=== PATIENT | male | born 1955 | race Caucasian/White ===

== ENCOUNTER 2020-02-05 15:18 | Inpatient (IN) | payer OTHER, SELFPAY ==
[2020-02-05] VITALS (11 sets, daily range): BP systolic 133–169; BP diastolic 85–96; PULSE 63–80; RESP 14–22; TEMP 36.5–36.7; O2SAT 94–97; BMI 30.1
--- NOTE | 2020-02-05 15:23 | XR_ITS ---
WS: [id number] XR chest 1V portable 92030 REASON FOR EXAM: cp FINDINGS: Mild tortuosity of the thoracic aorta without significant dilatation. Normal heart size. No active pulmonary parenchymal or pleural disease is noted. Mild degenerative changes in both shoulders and the thoracic spine. XR/XR chest 1V portable 10018 IMPRESSION: No acute chest abnormality.
--- NOTE | 2020-02-05 15:24 | ECG_ITS ---
[facility] Test Date: 2020-02-05 Pat Name: Myron Clayton Department: Room: Gender: Male Rn Documentation: : 1955 Requested By: Rubens Diaz Order Number: [id number] Brad MD: Clovis Fatima M.D. Measurements Intervals [place] Rate: 68 P: 47 ME: 220 QRS: 8 QRSD: 114 T: 20 QT: 394 QTc: 421 Interpretive Statements SINUS RHYTHM WITH FIRST DEGREE AV BLOCK MODERATE INTRAVENTRICULAR CONDUCTION DELAY [110+ ms QRS DURATION] INTERPRETATION BASED ON A DEFAULT AGE OF 40 YEARS No previous ECG available for comparison Electronically Signed On 02-05-2020 19:42:26 SENIOR PRINCIPAL PROCESS ENGINEER by Clovis Fatima M.D. [id number] f
[2020-02-05] MEDS: aspirin 81 mg Chew Tablet 324 MG PO (16:50)
--- NOTE | 2020-02-05 16:56 | ED_ITS ---
HPI - Chest Pain General: Chief Complaint: Chest Pain Stated Complaint: CP Time Seen by Provider: 02/05/20 16:06 Source: patient History of Present Illness: HPI narrative: Patient is a well-appearing 64-year-old male seen for chest pain. He describes the pain as pressure, 7 of 10, onset while walking on treadmill. Pain is recurred over the last several days with exertion. He describes it as pressure, substernal, with no radiation and no concomitant shortness of breath, lightheadedness, diaphoresis, nausea. He has no personal cardiac history, and denies history of diabetes, hypertension, hyperlipidemia, does not smoke or drink. Father of heart attack and had his first heart attack at age 48. Mother also had cardiac problems. At the time of my exam, he complains of 1 of 10 chest pressure, substernal, with no radiation and no associated symptoms. He denies recent sickness, fever, cough, and has no other acute complaints. He has not taken anything for the pain. Review of Systems General: Reports: 10 or more systems reviewed and unremarkable except in HPI and below Card: Reports: chest pain [facility] ED PFSH: Social History (Updated 02/05/20 @ 16:00 by Aman Phipps RN) Smoking and tobacco status: never smoked Alcohol intake: never Substance/Drug Use: former Physical Exam Const: COMMON NORMALS: no acute distress, patient oriented x3 and healthy appearing Neck/C-Spine: COMMON NORMALS: no JVD Resp: COMMON NORMALS: normal respiratory effort, No retractions, No use of accessory muscles, clear to auscultation bilaterally and percussion normal AUSCULTATION: clear to auscultation bilaterally PERCUSSION: percussion normal Cardio: COMMON NORMALS: no JVD, regular rate, regular rhythm, S1 normal heart sound present and S2 normal heart sound present JUGULAR VENOUS DISTENTION: no JVD RATE: regular rate RHYTHM: regular rhythm HEART SOUNDS: S1 normal heart sound present and S2 normal heart sound present OTHER: Chest pain is not reproducible with palpation or deep inspiration Extremity: COMMON NORMALS: normal to inspection and no pedal edema Neuro: COMMON NORMALS: patient oriented x3 Course Vital Signs: Vital signs: Vital Signs Temperature 97.7 F 02/05/20 15:56 Pulse Rate 66 02/05/20 17:59 Respiratory Rate 16 02/05/20 17:59 Blood Pressure 151/92 02/05/20 17:59 Pulse Oximetry 97 02/05/20 17:14 MDM - Chest Pain MDM Narrative: Medical decision making narrative: Patient remained hemodynamically stable throughout ED course. He describes chest pressure which is worse with exertion and better with rest. With Nitropaste and is completely gone. Initial troponin was 14 and 2-hour repeat is 17.98. With strong family history, I am concerned about his heart score. He will be admitted to the hospital service observation status for stress testing. Patient agrees to plan to be taken upstairs in stable condition. Lab Data: Labs: Lab Results 02/05/20 02/05/20 02/05/20 Range/Units 16:50 16:50 16:50 WBC 9.0 (4.0-10.0) 10^3/ uL RBC 4.90 (4.1-5.3) 10^6/u L Hgb 15.1 (11.7-16.6) g/dL Hct 44.5 (42.0-52.0) % MCV 90.8 (80-94) fL MCH 30.8 (28.0-34.0) pg MCHC 33.9 (30.0-36.0) g/dL RDW 13.2 (12.1-15.1) % Plt Count 222 (130-400) 10^3/c mm MPV 8.7 (7.4-10.4) fL Neut % (Auto) 54.1 % Lymph % (Auto) 35.4 % [place] % (Auto) 7.0 % Eos % (Auto) 2.3 % Baso % (Auto) 0.6 % Neut # (Auto) 4.89 (1.8-7.7) 10^3/u L Lymph # (Auto) 3.2 (0.8-4.8) 10^3/u L [place] # (Auto) 0.6 (0.2-0.9) 10^3/u L Eos # (Auto) 0.2 (0.0-0.8) 10^3/u L Baso # (Auto) 0.1 (0.0-0.1) 10^3/u L Nucleated RBC % (a uto) 0 % Nucleated RBCs # 0.0 /100WBC Sodium 143 (136-145) mmol/L Potassium 4.3 (3.5-5.1) mmol/L Chloride 108 H (98-107) mmol/L Carbon Dioxide 27 (22-29) mmol/L Anion Gap 12.3 (5-19) BUN 22 (8-23) mg/dL Creatinine 0.7 (0.7-1.2) mg/dL GFR Calculation 113.9 (90-130) mL/min Glucose 109 (65-115) mg/dL Calculated Osmolal ity 300 H (285-295) mOsm/k g Calcium 9.3 (8.5-10.5) mg/dL Total Bilirubin 0.3 (0.15-1.2) mg/dL AST 17 (0-40) U/L ALT 30 (0-41) U/L Alkaline Phosphata se 63 (40-130) IU/L Troponin T Baselin e 14 (0-15) ng/L Troponin T 120 Min [place] (0-15) ng/L Delta Troponin T (0-10) ABS# Total Protein 6.4 L (6.6-8.7) g/dL Albumin 4.2 (3.5-5.2) g/dL Globulin 2.2 (1.3-4.6) g/dL 02/05/20 Range/Units 18:50 WBC (4.0-10.0) 10^3/ uL RBC (4.1-5.3) 10^6/u L Hgb (11.7-16.6) g/dL Hct (42.0-52.0) % MCV (80-94) fL MCH (28.0-34.0) pg MCHC (30.0-36.0) g/dL RDW (12.1-15.1) % Plt Count (130-400) 10^3/c mm MPV (7.4-10.4) fL Neut % (Auto) % Lymph % (Auto) % [place] % (Auto) % Eos % (Auto) % Baso % (Auto) % Neut # (Auto) (1.8-7.7) 10^3/u L Lymph # (Auto) (0.8-4.8) 10^3/u L [place] # (Auto) (0.2-0.9) 10^3/u L Eos # (Auto) (0.0-0.8) 10^3/u L Baso # (Auto) (0.0-0.1) 10^3/u L Nucleated RBC % (a uto) % Nucleated RBCs # /100WBC Sodium (136-145) mmol/L Potassium (3.5-5.1) mmol/L Chloride (98-107) mmol/L Carbon Dioxide (22-29) mmol/L Anion Gap (5-19) BUN (8-23) mg/dL Creatinine (0.7-1.2) mg/dL GFR Calculation (90-130) mL/min Glucose (65-115) mg/dL Calculated Osmolal ity (285-295) mOsm/k g Calcium (8.5-10.5) mg/dL Total Bilirubin (0.15-1.2) mg/dL AST (0-40) U/L ALT (0-41) U/L Alkaline Phosphata se (40-130) IU/L Troponin T Baselin e (0-15) ng/L Troponin T 120 Min [place] 17.98 H (0-15) ng/L Delta Troponin T 3.98 (0-10) ABS# Total Protein (6.6-8.7) g/dL Albumin (3.5-5.2) g/dL Globulin (1.3-4.6) g/dL EKG Data^: EKG 1: Attestation: I personally reviewed and interpreted this EKG as follows: EKG interpretation date: 02/05/20 EKG interpretation time: 16:04 Interpretation: Sinus rhythm with first-degree block, ND interval 220 ms, no ST elevation or depression, QTC = 412 Discharge Plan Discharge Prescriptions: No Action No Known Home Medications RF: 0 Coding Level of Care Code ED Raised Printer for g Fwd Exam Detailed
[2020-02-05 17:00] LABS: Basophils # 0.1 10^3/uL (0.0-0.1); Basophils % 0.6 %; Eosinophils # 0.2 10^3/uL (0.0-0.8); Eosinophils % 2.3 %; Hematocrit 44.5 % (42.0-52.0); Hemoglobin 15.1 g/dL (11.7-16.6); Lymphocytes # 3.2 10^3/uL (0.8-4.8); Lymphocytes % 35.4 %; Mean Corpuscular HGB Conc 33.9 g/dL (30.0-36.0); Mean Corpuscular Hemoglobin 30.8 pg (28.0-34.0); Mean Corpuscular Volume 90.8 fL (80-94); Mean Platelet Volume 8.7 fL (7.4-10.4); Monocytes # 0.6 10^3/uL (0.2-0.9); Neutrophils # 4.89 10^3/uL (1.8-7.7); Neutrophils % 54.1 %; Nucleated Red Blood Cells % 0 %; Platelet Count 222 10^3/cmm (130-400); Red Cell Distribution Width 13.2 % (12.1-15.1)
--- NOTE | 2020-02-05 17:24 | ECG_ITS ---
[facility] Test Date: 2020-02-05 Pat Name: Myron Clayton Department: Room: 250 Gender: Male Admissions Dean: : 1955 Requested By: Rubens Diaz Order Number: [id number] Brad MD: Kari Rivera M.D. Measurements Intervals [place] Rate: 60 P: [place]: QRS: 8 QRSD: 117 T: 11 QT: 427 QTc: 429 Interpretive Statements SINUS RHYTHM WITH FIRST DEGREE AV BLOCK MODERATE INTRAVENTRICULAR CONDUCTION DELAY [110+ ms QRS DURATION] ABNORMAL RHYTHM ECG Compared to ECG 02/05/2020 16:03:01 No significant changes Electronically Signed On 02-06-2020 21:27:58 SALES REPRESENTATIVE RAW FIBERS by Kari Rivera M.D. [id number] f
[2020-02-05 17:31] LABS: Alanine Aminotransferase 30 U/L (0-41); Albumin Level 4.2 g/dL (3.5-5.2); Alkaline Phosphatase 63 IU/L (40-130); Anion Gap 12.3 (5-19); Aspartate Amino Transferase 17 U/L (0-40); Blood Urea Nitrogen 22 mg/dL (8-23); Calcium 9.3 mg/dL (8.5-10.5); Carbon Dioxide 27 mmol/L (22-29); Chloride 108 mmol/L (98-107); Globulin 2.2 g/dL (1.3-4.6); Glomerular Filtration Rate 113.9 mL/min (90-130); Glucose 109 mg/dL (65-115); Osmolality Calculated 300 mOsm/kg (285-295); Potassium 4.3 mmol/L (3.5-5.1); Sodium 143 mmol/L (136-145); Total Bilirubin 0.3 mg/dL (0.15-1.2); Total Protein 6.4 g/dL (6.6-8.7); Troponin(5th) Baseline 14 ng/L (0-15)
[2020-02-05 19:45] LABS: Troponin 5 2HR 17.98 ng/L (0-15); Troponin 5 2HR Delta 3.98 ABS# (0-10)
--- NOTE | 2020-02-05 20:24 | PM.HP ---
Providers/Chief Complaint Chief Complaint: CP History of Present Illness Myron Clayton is a 64 year old male who is a patient at [facility] without significant past medical history presented today with chief complaint of chest discomfort. Patient is stating that for last 3 days he has been experiencing chest heaviness. First time he noticed chest heaviness while he was using treadmill with inclination 3.5, 20 minutes after work-up, he describes his chest discomfort as heaviness nonradiating, improved with decrease in physical activity and rest. He is denying orthopnea, PND, shortness of breath. He is fairly active for his age. Today when he went outside to [employer], he start experiencing chest heaviness again which she is describing as pressure-like sensation not associated nausea, vomiting, diaphoresis. Chest pain would last only for 2 to 5 minutes and subside on rest. Patient is endorsing that his father had first MA in his 40s, he in his 60s due to complications of MA. Because of these concerns he decided to come to the hospital for further evaluation Diagnosis in the ER revealed normal hemodynamics, hypertension, afebrile, normal CBC and BMP, nonsignificant delta troponin, EKG showing sinus rhythm, chest x-ray unremarkable, patient is chest pain-free. D-dimer negative Review of Systems Const: Denies: fever(s), chills, body aches or fatigue Eyes: Denies: change in vision ENMT: Denies: throat pain Card: Reports: chest pain; Denies: palpitations, irregular heart rhythm, edema, swelling of feet/ankles, pre-syncope, dyspnea on exertion or orthopnea Resp: Denies: dyspnea GI: Denies: abdominal pain : Denies: flank pain Musc: Denies: neck pain Skin/Breast: Denies: rash Neuro: Denies: headache(s) Psych: Denies: anxiety Endo: Denies: polyuria Chad/Lymph: Denies: easy bruising All/Imm: Denies: urticaria Medications/Allergies Home Medications Medication Instructions Recorded Confirmed Last Taken Type No Known Home Medications 02/05/20 02/05/20 Unknown History Allergies Allergy/AdvReac Type Severity Reaction Status Date / Time No Known Allergies Allergy Verified 02/05/20 16:00 PFSH Acute PFSH: Medical History (Updated 02/05/20 @ 21:55 by Jaiden Ojeda MD) No significant past medical history Surgical History (Updated 02/05/20 @ 21:52 by Jaiden Ojeda MD) H/O shoulder surgery History of ankle surgery History of tonsillectomy Family History (Updated 02/05/20 @ 21:52 by Jaiden Ojeda MD) Father CAD (coronary artery disease) First MA age 48, at age 61 Social History (Updated 02/05/20 @ 16:00 by Aman Phipps RN) Smoking and tobacco status: never smoked Alcohol intake: never Substance/Drug Use: former Vitals/I&O/Wt Last Vital Signs Temp 97.7 F 02/05/20 15:56 Pulse 66 02/05/20 17:59 Resp 16 02/05/20 17:59 BP 151/92 02/05/20 17:59 Pulse Ox 97 02/05/20 17:14 Weight last 48 hrs Weight 95.254 kg Physical Exam Narrative: EXAM NARRATIVE: Healthy appearing middle-aged male No active distress S1, S2 sinus rhythm No murmur appreciated Bilateral breath sounds without adventitious rhonchi or crackles Abdomen soft nontender bowel sound present Lower extremity no edema gangrene ulcer EOMI, PERRLA No neurological deficit Appropriate mood and affect Skin without ulcers Awake alert oriented x3 GCS 15 Data : 02/05/20 16:50 02/05/20 16:50 A&P Assessment and plan (1) Angina of effort: Status: Acute (2) Hypertension: Status: Acute Additional A&P Information Angina on exertion Substernal chest pain lasting 2 to 5 minutes, relieved with rest, family history positive, high BMI, hypertensive, He has moderate risk factors heart score 3-4 Sinus rhythm on EKG, currently chest pain-free hemodynamically stable nonsignificant delta troponin Would get exercise sestamibi stress test Echo in the morning N.p.o. after midnight For hypertension I would add lisinopril 5 mg daily Low risk for PE, check D-dimer Full code DVT prophylaxis Lovenox Attestations Medical Necessity Statement*: Anticipating discharge in less than 48 hours need stress test to rule out coronary ischemia Time Spent in Patient Care: (>than 50% of time spent in counselling and/or direct pt care on unit). 40mins Coding Level of Care Code Acute Instrumentation Tech for Chg Fwd Diagnoses Angina of effort I20.8 Hypertension I10
[2020-02-05 20:54] LABS: D Dimer <= 0.27 ug/mIFEU (0-0.59)
[2020-02-05 23:10] LABS: Troponin 5 6HR 19.63 ng/L (0-15); Troponin 5 6HR Delta 5.63 ng/L (0-12)
[2020-02-06] VITALS (11 sets, daily range): BP systolic 113–158; BP diastolic 73–98; PULSE 56–89; RESP 16–18; TEMP 36.6–36.8; O2SAT 94–97
--- NOTE | 2020-02-06 00:05 | PC.NURSE ---
ROUNDING Care of pt assumed from Chente Zapata RN at this time. Recived report. Pt is to have stress test this am and will be NPO except water. Pt is aware.
--- NOTE | 2020-02-06 05:30 | PC.NURSE ---
SHIFT SUMMARY Has rested well without distress or c/o. Has denied chest pain. Telemetry has shown SR
--- NOTE | 2020-02-06 06:00 | ECG_ITS ---
[facility] Test Date: 2020-02-06 Pat Name: Myron Clayton Department: Room: 250 Gender: Male Manager Oracle Database: : 1955 Requested By: Elier Ojeda Order Number: [id number] Brad MD: ELIER PAK Interpretive Statements NAME OF STUDY: EXERCISE SESTAMIBI STRESS TEST INDICATION: Angina, EXERCISE DATA: The patient was exercised by Keshawn protocol. Baseline heart rate was 86 beats per minute. Baseline blood pressure was 149/90 millimeters of mercury. Target heart rate was 157 beats per minute. Maximum heart rate achieved was 162, which was 103 % of the target heart rate. Maximum blood pressure was 178/109 millimeters of mercury. Total exercise time was 7 minutes 34 seconds. Maximum METs achieved was 10.2, maximum VO2 was 35.7. The reason for ending the test was maximum effort achieved. The patient complained of during the stress test, which then resolved at the end of the test. ELECTROCARDIOGRAM: BASELINE: Showed sinus rhythm, normal axis, no significant ST-T changes at the baseline noted. EXERCISE: At the peak exercise level, no significant ST-T changes suggestive of ischemia noted. RECOVERY: During the recovery period, heart rate dropped appropriately. No significant ST-T changes in the recovery suggestive of ischemia noted. CONCLUSION: 1. Exercise capacity good. 2. Heart rate response was appropriate. 3. Blood pressure response was appropriate. 4. Symptoms not suggestive of ischemia. 5. Electrocardiogram portion of the stress test was not suggestive of ischemia. 6. Nuclear scan will be documented separately. Electronically Signed On 02-06-2020 18:21:21 RN EMBEDDED by ELIER PAK [id number]
[2020-02-06 06:02] LABS: Anion Gap 12.6 (5-19); Blood Urea Nitrogen 21 mg/dL (8-23); Calcium 8.8 mg/dL (8.5-10.5); Carbon Dioxide 26 mmol/L (22-29); Chloride 107 mmol/L (98-107); Glomerular Filtration Rate 113.9 mL/min (90-130); Glucose 93 mg/dL (65-115); Osmolality Calculated 297 mOsm/kg (285-295); Potassium 3.6 mmol/L (3.5-5.1); Sodium 142 mmol/L (136-145)
--- NOTE | 2020-02-06 07:00 | NMCV_ITS ---
NM savanna perf SPECT r/s* [id number] Myron Clayton Age: 64 Gender: M : 1955 Exam Date: 02/06/2020 07:25 Ordering Phys: Jaiden Ojeda MD Technologist: ESTRELLA Gonzales Exam Location: [facility] Indications: Chest pain STRESS TEST Please see separate stress test report in [facility] for full findings IMAGE PROTOCOL Rest/Stress 1 Exercise Day Radiopharmaceutical Dose (mCi) Administration Site Administered by Rest: Tc-99m 10.1 IV Sherice Domingo, MAPLE SYRUP MAKER Sestamibi Stress:Tc-99m 32.2 IV Sherice Domingo, MAPLE SYRUP MAKER Sestamibi Rest: 60 Discovery 630 Stress: 15 Discovery 630 Radiopharmaceutical was injected at 98 % maximum heart rate. SPECT RESULTS Technical Quality: Good Raw Data Analysis: Normal Image Corrections: No attenuation or motion correction applied supine stress Summed Stress Score: 6 Summed Rest Score: 0 Summed Difference Score: 6 PERFUSION FINDINGS Small area of persistently decreased tracer uptake noted in basal anterior and basal to mid inferior wall with medium-sized area of moderate to severe reversibility in basal to mid anterior wall suggestive of old myocardial infarction with moderate to severe janeth-infarct ischemia. In the absence of prone images cannot rule out artifact. FUNCTIONAL RESULTS (calculated via Gated SPECT) Stress Image LV EF (%): 57 Stress EDV (mL):117 TID: 0.94 Stress ESV (mL):50 Rest Image LV EF (%): 57 FUNCTIONAL FINDINGS: Basal to mid inferior wall hypokinesis noted IMPRESSIONS Small area of old myocardial infarction versus scarring surrounded by medium- sized area of moderate to severe ischemia noted in mid anterior wall suggestive of possible lesion in the LAD territory. Small area of old myocardial infarction versus scarring noted in basal to mid inferior wall, in absence of prone images cannot rule out artifact. EKG segment will be documented separately. Clinical correlation advised. Jaiden Mckeon MD (Electronically Signed) Final Date: 06 February 2020 15:46 S
--- NOTE | 2020-02-06 09:00 | USCV_ITS ---
Myron Clayton Age: 64 Gender: M : 1955 Exam Date: 02/06/2020 07:29 Ordering Phys: Jaiden Ojeda MD Technologist: Nanette Douglas Exam Location: [facility] Indication: ANGINA BP: 145 / 84 HR: 70 Rhythm: Sinus Technical Quality: Adequate MEASUREMENTS (Male / Female) Normal Values 2D ECHO LV Diastolic Diameter PLAX 4.0 cm 4.2 - 5.9 / 3.9 - 5.3 cm LV Systolic Diameter PLAX 2.4 cm LV Chamber Size 3.9 cm IVS Diastolic Thickness 1.4 cm 0.6 - 1.0 / 0.6 - 0.9 cm IVS Systolic Thickness 1.7 cm LVPW Diastolic Thickness 2.2 cm 0.6 - 1.0 / 0.6 - 0.9 cm LVPW Systolic Thickness 2.7 cm RV Chamber Size 3.7 cm LVOT Diameter 2.1 cm LV Ejection Fraction 2D Teich 69.8 % LV Ejection Fraction MOD 2C 61.0 % LV Ejection Fraction 2C AL 61.7 % LA Diameter 4.1 cm LA Width 3.8 cm LA Height 5.7 cm RA Width 2.9 cm RA Height 5.3 cm Aorta at Sinotubular Diameter 3.0 cm M-MODE LV Diastolic Diameter MM 4.7 cm 4.2 - 5.9 / 3.9 - 5.3 cm LV Systolic Diameter MM 3.2 cm LV Ejection Fraction MM Teich 58.8 % IVS Diastolic Thickness MM 1.1 cm 0.6 - 1.0 / 0.6 - 0.9 cm IVS Systolic Thickness MM 1.4 cm LVPW Diastolic Thickness MM 0.8 cm 0.6 - 1.0 / 0.6 - 0.9 cm LVPW Systolic Thickness MM 1.5 cm Aortic Annulus Diameter 3.1 cm LA Ao Ratio MM 1.5 MV E Point Septal Separation 0.7 cm DOPPLER AV Peak Velocity 124.0 cm/s LVOT Peak Velocity 103.0 cm/s AV Area Cont Eq vti 2.9 cm squared AV Area Cont Eq pk 2.8 cm squared MV Area PHT 4.3 cm squared Mitral E to A Ratio 1.2 MV E' Velocity 49.5 cm/s Mitral E to MV E' Ratio 14.2 Mitral E to LV E' Lateral Ratio 13.4 Mitral E to LV E' Septal Ratio 15.1 TR Peak Velocity 120.8 cm/s TR Peak Gradient 5.8 mmHg TV Peak E Velocity 46.3 cm/s Right Atrial Pressure 3.0 mmHg Pulmonary Artery Systolic Pressu 8.8 mmHg PV Peak Velocity 70.0 cm/s RV Acceleration Time 0.1 s RV Ejection Time 0.4 s RV AcT/ET 0.4 FINDINGS Left Ventricle Normal left ventricular size and systolic function, EF 60 %. Grade II/IV diastolic dysfunction (restrictive filling pattern), severely elevated filling pressures. Mild left ventricular hypertrophy. No regional wall motion abnormalities. Right Ventricle The right ventricle is normal in size and function. Right Atrium The right atrium is normal in size. Left Atrium Mildly increased left atrial size. Mitral Valve No gross abnormalities noted Aortic Valve No gross abnormalities noted Tricuspid Valve No gross abnormalities noted Pulmonic Valve Pulmonic valve not well visualized. Pericardium Normal pericardium without effusion. Aorta Normal ascending aorta dimension. CONCLUSIONS Normal left ventricular size and systolic function, EF 60 %. Grade II/IV diastolic dysfunction (restrictive filling pattern), severely elevated filling pressures. Mild left ventricular hypertrophy. No regional wall motion abnormalities. Mildly increased left atrial size. No previous study is available for comparison. Dr Clovis Fatima MD FACC (Electronically Signed) Final Date: 06 February 2020 17:27 S
--- NOTE | 2020-02-06 10:13 | PC.NURSE ---
cdl ordered lexiscan after seeing what i thought was a cancelled exercise mibi. pt confirmed that he was offered chemical or treadmill and he chose treadmill. returned med to pharmacy after returning to the [facility].
--- NOTE | 2020-02-06 10:32 | PC.CHAP ---
Pastoral Care Encounter/Spiritual Assessment Type of Contact [] Declined music department chair visit [] Patient/Family/Request visit [] Outpatient visit [] Follow-up visit [] Physician referral [] Code/Alert [x] Routine visit [] Staff referral [] Actively dying [] Patient sleeping [] Family support [] [] Out of room [] Palliative care [] [x] Receiving care in room [] Pre-surgical visit [] Trauma [] Long length of stay [] ICU visit [] Other: Relational/Emotional Strength [x] Patient feels connected with others/family/visitors/staff [] Distress [] Loneliness/isolation [] Abandonment Spirituality of Patient [x] Person of Farhana [] Attends Restorationist of their Farhana [x] Believes in Prayer [] Reads Bible or Mormonism materials [] There are Spiritual issues to be addressed Data Science And Iot Manager Interventions [x] Prayer [x] Active listening [x] Non-anxious presence [x] Spiritual/emotional support [] Crisis/trauma care [x] Spiritual counseling [] Bereavement support [] Provided bereavement packet [] Provided Bible/devotional materials [] Provided toy/stuffed animal, coloring book to patient or family member [] Provided Communion [] Anointing/[place] [] Salvation [x] Completed spiritual assessment [] Other: Impact on Illness or Injury [] Angry [x] Fearful [] Anxious [] Often cries [] Exhaustion [] Unable to work [] Unable to attend bahai [] Unable to walk/stand [] Unable to read [] Unable to drive [] Unable to eat/drink [] Unable to sleep [] Unable to be with family [] Patient intubated [] Other: Summary Feels good has a good attitude, hopes for good results Time spent with patient 10 mins
--- NOTE | 2020-02-06 15:54 | P.PN_ITS ---
Subjective Subjective: Interval history: Patient underwent stress test this morning which ended up showing a medium sized area of moderate to severe ischemia noted in the mid anterior wall suggestive of possible lesion in the LAD territory. Also possible lesion in the mid inferior wall. At this present time denies any chest pain, states he had a's very mild chest pain earlier this morning when he was walking. Medications: Reviewed: Yes Vitals/I&O/Wt Last Vital Signs Temp 97.9 F 02/06/20 15:36 Pulse 66 02/06/20 15:36 Resp 18 02/06/20 15:36 BP 125/76 02/06/20 15:36 Pulse Ox 96 02/06/20 15:36 02/06/20 02/06/20 02/06/20 06:59 14:59 22:59 Intake Total 150 / 150 Output Total 350 / 350 Balance -200 / -200 Weight last 48 hrs Weight 95.254 kg Physical Exam Narrative: EXAM NARRATIVE: GEN: Awake, alert and oriented, no acute distress CVS: S1S2 N RS: CTA B/L Abd: Soft, nt/nd , bs+ HEAT TREAT OPERATOR: no focal neuro deficits Data : 02/05/20 16:50 02/06/20 04:44 A&P Assessment and plan (1) Angina of effort: Status: Acute (2) Hypertension: Status: Acute Additional A&P Information Unstable angina Substernal chest pain lasting 2 to 5 minutes, relieved with rest, family history positive, Sinus rhythm on EKG, troponin series is negative Underwent stress test this morning which showed possible area of moderate to severe obstruction in the anterior wall in the LAD territory. Also possible changes in the mid inferior wall. Start aspirin 81 mg, atorvastatin 40 mg daily Check HbA1c, lipid panel. Blood pressure between 1 20-140 systolic Cardiology consult for likely angiogram DVT prophylaxis: Lovenox Attestations Medical Necessity Statement*: abnromal stress test, cardiology consult, possible angiogram Coding Level of Care Code Acute Shrimp Cleaner for Pk Sargent Diagnoses Angina of effort I20.8 Hypertension I10
[2020-02-06 16:48] LABS: Estmated Average Glucose 100; Hemoglobin A1C 5.1 % (4.0-6.0)
[2020-02-06 16:58] LABS: Chol HDL Ratio 5.43 mg/dL (1.0-5.00); Cholesterol 228 mg/dL (0-200); HDL Cholesterol 42 mg/dL (60-100); LDL Cholesterol Calculated 151 mg/dL (50-129); Triglycerides 175 mg/dL (0-150)
[2020-02-06] MEDS: aspirin 81 mg EC Tablet PO (17:14)
--- NOTE | 2020-02-06 17:37 | P.CONIM_ITS ---
Providers/Reason For Consult Consulting Physican/Specialty*: MARINA Fatima MD/cardiology Reason for Consult*: Patient with chest pain and abnormal myocardial perfusion imaging Attending Physician: Iveth Nielsen MD History of Present Illness History of Present Illness Myron Clayton is a 64 year old male with no significant past medical history, is admitted to hospital through the emergency room, where he presented with complaints of chest pain. Myocardial infarction is ruled out with the serial enzymes and EKGs. He had a myocardial perfusion imaging today. The perfusion scan revealed an area of ischemia in the distribution of the left anterior descending artery. Cardiology consult is requested for further cardiac evaluation recommendations. According to the patient, for the last several months, he has been having easy fatigability and dyspnea on exertion. He also has been having few episodes of chest pain in the last couple of weeks. Yesterday he had a prolonged episode of chest pain while carrying a bag of sand around the house. The pain was mid substernal, radiating across the chest, associated with some shortness of breath. On a scale of 1-10, the pain was 2/[address] to the hospital, the pain became 3/10. It took almost 3 to 4 hours for the pain to subside completely. He did not have any other associated symptoms or radiation of pain. He used to do heavy workout up until recently. Because of the easy fatigability and shortness of breath, he was limiting his activities. Last Monday, he had an episode of chest pain while doing the treadmill exercise. He has no history for coronary disease, myocardial infarction or congestive heart failure. Denies any fever or chills. No cough. He has a strong family history for premature atherosclerotic heart disease. His father had a massive myocardial infarction at the age of 48. He of heart failure in his 60s. Mother had open heart surgery x4 in her 60s. Both maternal and paternal grandfathers had heart problems requiring PCI's and bypass surgeries. Details are not available. Patient has a remote history of smoking for 5 years. No alcohol abuse or any substance abuse. He been fairly healthy with no history for hypertension, diabetes or dyslipidemia. His blood pressure was found to be elevated lately. Review of Systems Narrative: CONSTITUTIONAL: No fever or chills. Easy fatigability and dyspnea on exertion as mentioned above EYES: No blurring of vision or other visual disturbances lately. ENT: No hoarseness of voice, auditory disturbances or sore throat. CARDIOVASCULAR: As mentioned above. RESPIRATORY: No significant cough. GASTROINTESTINAL: No hematemesis or melena. GENITOURINARY: No dysuria or hematuria. INTEGUMENTARY: No skin rashes or history of skin cancer. NEURO: No transient ischemic attacks or amaurosis. PSYCHIATRIC: No history of psychosis or major depression. HEMATOLOGIC: No bleeding disorders or significant anemia. ENDOCRINE: No history of polyuria or polydipsia. MUSCULOSKELETAL: No recent joint pain or swelling. ALLERGY/IMMUNOLOGY: As mentioned above. Meds/Allergies Home Medications and Allergies Home Medications Medication Instructions Recorded Confirmed Last Taken Type No Known Home Medications 02/05/20 02/05/20 Unknown History Allergies Allergy/AdvReac Type Severity Reaction Status Date / Time No Known Allergies Allergy Verified 02/05/20 16:00 Current Medications Current Medications Generic Name Dose Route Start Last Admin Trade Name Freq PRN Reason Stop Dose Admin Aspirin 81 mg 02/06/20 15:50 02/06/20 17:14 Aspirin 81 Mg Ec Tablet PO 81 mg DAILY ROBERTO Administration Enoxaparin Sodium 40 mg 02/05/20 21:31 02/05/20 21:40 Enoxaparin 40 Mg/0.4 Ml Syringe SUBCUT Not Given Q24H ROBERTO PFSH Acute PFSH: Medical History Dyslipidemia No significant past medical history Unstable angina Surgical History H/O shoulder surgery History of ankle surgery History of tonsillectomy Family History Father CAD (coronary artery disease) First CT age 48, at age 61 Social History Smoking and tobacco status: never smoked Alcohol intake: never Substance/Drug Use: former Vitals/I&O/Wt Last Vital Signs Temp 97.9 F 02/06/20 15:36 Pulse 66 02/06/20 15:36 Resp 18 02/06/20 15:36 BP 125/76 02/06/20 15:36 Pulse Ox 96 02/06/20 15:36 02/06/20 02/06/20 02/06/20 06:59 14:59 22:59 Intake Total 150 / 150 Output Total 350 / 350 Balance -200 / -200 Weight last 48 hrs Weight 210 lb Physical Exam Narrative: EXAM NARRATIVE: GENERAL: The patient is alert and oriented times three. Not in any acute distress. HEENT: No significant pallor, icterus or lymphadenopathy. The pupils are reactant to light. Oral cavity: There are no mucous membrane lesions. Funduscopic examination: The fundus is not visualized NECK: Trachea appears to be central. No masses noted. No JVD or thyromegaly appreciated. No carotid bruit. RESPIRATORY: Chest is symmetrical. No intercostals muscle retraction or any accessory muscle activation. There is no chest wall tenderness. Breath sounds are heard bilaterally. No rales or rhonchi heard. No evidence of any consolidation. BREASTS: Deferred. HEART: The PMI is in the 5th left intercostals space just inside the midclavicular line. No palpable precordial events. S1 and S2 are normal. No S3 or S4 heard. No pericardial rub or any click heard. ABDOMEN: No vessel pulsations or distention. No tenderness. No organomegaly appreciated. No abdominal bruit. Bowel sounds are normally heard. : Deferred. RECTAL: Deferred. LYMPHATIC: No lymphadenopathy noted in the neck or groin. EXTREMITIES: No edema or cyanosis. No clubbing. The peripheral pulses are felt in fairly good volume and amplitude. MUSCULOSKELETAL: No acute joint deformities or swelling. SKIN: There are no significant scars or skin rash noted. NEUROPSYCHIATRIC: The patient is alert and oriented x3. Appears to be in a good mood. The higher functions are grossly within normal limits. No tremors or rigidity noted. Data Labs: Other Labs: Laboratory Last Values WBC 9.0 10^3/uL (4.0- 10.0) 02/05/20 16:50 RBC 4.90 10^6/uL (4.1 -5.3) 02/05/20 16:50 Hgb 15.1 g/dL (11.7-1 6.6) 02/05/20 16:50 Hct 44.5 % (42.0-52.0 ) 02/05/20 16:50 MCV 90.8 fL (80-94) 02/05/20 16:50 MCH 30.8 pg (28.0-34. 0) 02/05/20 16:50 MCHC 33.9 g/dL (30.0-3 6.0) 02/05/20 16:50 RDW 13.2 % (12.1-15.1 ) 02/05/20 16:50 Plt Count 222 10^3/cmm (130 -400) 02/05/20 16:50 MPV 8.7 fL (7.4-10.4) 02/05/20 16:50 Neut % (Auto) 54.1 % 02/05/20 16:50 Lymph % (Auto) 35.4 % 02/05/20 16:50 [place] % (Auto) 7.0 % 02/05/20 16:50 Eos % (Auto) 2.3 % 02/05/20 16:50 Baso % (Auto) 0.6 % 02/05/20 16:50 Neut # (Auto) 4.89 10^3/uL (1.8 -7.7) 02/05/20 16:50 Lymph # (Auto) 3.2 10^3/uL (0.8- 4.8) 02/05/20 16:50 [place] # (Auto) 0.6 10^3/uL (0.2- 0.9) 02/05/20 16:50 Eos # (Auto) 0.2 10^3/uL (0.0- 0.8) 02/05/20 16:50 Baso # (Auto) 0.1 10^3/uL (0.0- 0.1) 02/05/20 16:50 Nucleated RBC % (a uto) 0 % 02/05/20 16:50 Nucleated RBCs # 0.0 /100WBC 02/05/20 16:50 D-Dimer <= 0.27 ug/mIFEU (0-0.59) 02/05/20 16:50 Sodium 142 mmol/L (136-1 45) 02/06/20 04:44 Potassium 3.6 mmol/L (3.5-5 .1) 02/06/20 04:44 Chloride 107 mmol/L (98-10 7) 02/06/20 04:44 Carbon Dioxide 26 mmol/L (22-29) 02/06/20 04:44 Anion Gap 12.6 (5-19) 02/06/20 04:44 BUN 21 mg/dL (8-23) 02/06/20 04:44 Creatinine 0.7 mg/dL (0.7-1. 2) 02/06/20 04:44 GFR Calculation 113.9 mL/min (90- 130) 02/06/20 04:44 Glucose 93 mg/dL (65-115) 02/06/20 04:44 Estimat Average Gl ucose 100 02/06/20 04:44 Hemoglobin A1c 5.1 % (4.0-6.0) 02/06/20 04:44 Calculated Osmolal ity 297 mOsm/kg (285- 295) H 02/06/20 04:44 Calcium 8.8 mg/dL (8.5-10 .5) 02/06/20 04:44 Total Bilirubin 0.3 mg/dL (0.15-1 .2) 02/05/20 16:50 AST 17 U/L (0-40) 02/05/20 16:50 ALT 30 U/L (0-41) 02/05/20 16:50 Alkaline Phosphata se 63 IU/L (40-130) 02/05/20 16:50 Troponin T Baselin e 14 ng/L (0-15) 02/05/20 16:50 Troponin T 120 Min [place] 17.98 ng/L (0-15) H 02/05/20 18:50 Delta Troponin T 3.98 ABS# (0-10) 02/05/20 18:50 Troponin T Hi Sens 6Hr 19.63 ng/L (0-15) H 02/05/20 22:48 Troponin T Hi Sens 6Hr Delta 5.63 ng/L (0-12) 02/05/20 22:48 Total Protein 6.4 g/dL (6.6-8.7 ) L 02/05/20 16:50 Albumin 4.2 g/dL (3.5-5.2 ) 02/05/20 16:50 Globulin 2.2 g/dL (1.3-4.6 ) 02/05/20 16:50 Triglycerides 175 mg/dL (0-150) H 02/06/20 04:44 Cholesterol 228 mg/dL (0-200) H 02/06/20 04:44 LDL Cholesterol, C alc 151 mg/dL (50-129 ) H 02/06/20 04:44 HDL Cholesterol 42 mg/dL (60-100) L 02/06/20 04:44 LDL/HDL Ratio 3.60 RATIO (0.00- 3.22) H 02/06/20 04:44 Cholesterol/HDL Ra nat 5.43 mg/dL (1.0-5 .00) H 02/06/20 04:44 Imaging^: Myocardial perfusion imaging: My impression: Small area of old myocardial infarction versus scarring surrounded by medium- sized area of moderate to severe ischemia noted in mid anterior wall suggestive of possible lesion in the LAD territory. Small area of old myocardial infarction versus scarring noted in basal to mid inferior wall, in absence of prone images cannot rule out artifact. EKG segment will be documented separately. Clinical correlation advised. Echo: My impression: ormal left ventricular size and systolic function, EF 60 %. Grade II/IV diastolic dysfunction (restrictive filling pattern), severely elevated filling pressures. Mild left ventricular hypertrophy. No regional wall motion abnormalities. Mildly increased left atrial size. No previous study is available for comparison. EKG^: EKG 1: My Interpretation: The EKG revealed a normal sinus rhythm with a first-degree AV block. Some nonspecific IVCD. No acute ST-T changes. A&P Assessment and plan (1) Unstable angina: Patient symptoms may suggest an unstable anginal pattern. He still has some discomfort in the chest. Hemodynamically seems to be stable. He may be started on subcu Lovenox . I also may start him on low-dose of beta-reddy namely metoprolol 12.5 mg p.o. twice daily. May continue on the baby aspirin. Status: Acute (2) Abnormal cardiovascular stress test: Implications of the abnormal myocardial perfusion imaging results were discussed with the patient in detail which he understood well. In order to further evaluate his coronary status a cardiac catheterization would be appropriate. The risk of bleeding, hematoma, vascular injury, myocardial infarction, CVA, renal failure and other concomitant complications were explained in detail. Patient understood this well and consented to proceed. We will go ahead and schedule the patient for a left catheterization with left and right coronary angiogram and possible PCI tomorrow. Status: Acute (3) Dyslipidemia: May start him on simvastatin 80 mg p.o. now and daily Status: Acute (4) Hypertension: Toprol 12.5 mg p.o. twice daily. Status: Acute Qualifiers: Hypertension type: essential hypertension Qualified Code(s): I10 - Essential (primary) hypertension Additional A&P Information Based on the clinical response and the results of the above, further recommendations will be made. 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
[2020-02-06] MEDS: metoprolol tartrate 25 mg Tablet 12.5 MG PO (20:33)
[2020-02-06] MEDS: atorvastatin 40 mg Tablet PO (21:31)
[2020-02-07] VITALS (42 sets, daily range): BP systolic 109–154; BP diastolic 66–102; PULSE 55–93; RESP 13–24; TEMP 36.5–36.9; O2SAT 96–97
[2020-02-07] MEDS: sodium chloride 0.9% 1,000 ML 50 ML IV (05:20)
--- NOTE | 2020-02-07 05:47 | PC.NURSE ---
SHIFT SUMMARY Rested well tonight without c/o chest pain. Is very pleasant. NPO after midnight for angiogram procedure this am. Prep complete this am and changed into gown. IV fluids have been started at 50ml/hr rate.
--- NOTE | 2020-02-07 06:45 | XACV_ITS ---
Exam Room: [facility] Ht: 178 cm Wt: 95 kg BSA: 2.19 m2 Gender: Male : 1955 Any Known Allergies: No known allergies Exam Priority: Routine Procedure(s): Procedure Description: Diagnostic procedure Procedure Description: PCI procedure Procedure Description: Left Heart Catheterization Procedure Description: Left ventriculography Procedure Description: Drug Eluting Coronary Stent Procedure Description: PTCA Procedure Description: Miscellaneous Procedure Description: ACT Procedure Description: Coronary Angiography Diagnostic Cath Status: Urgent Diagnostic Findings * Coronary angiography shows right dominance. * The left main is a medium caliber vessel with no significant stenotic lesions. * The left artery descending artery is a medium caliber vessel which appears to wrap around the LV apex minimally. Right after the second diagonal branch, there was a long eccentric irregular narrowing of around 70%. The second diagonal branch was found to have a high-grade lesion of 70 to 90% proximally. Rest of the vessel was found to have mild diffuse intimal irregularities. * The left circumflex artery is a medium caliber vessel which was found to have around 20% tubular narrowing proximally. The artery gives off a large obtuse marginal branch which bifurcates at the mid segment. Just before the bifurcation there is a 30% tubular narrowing. One of the bifurcation branches was found to have around 40% tubular narrowing proximally. The circumflex proper was found to have mild diffuse intimal irregularities. No other significant stenotic lesions. * The intermediate artery is a small caliber high obtuse marginal branch with no significant stenotic lesions. * The right coronary artery is a medium caliber vessel which was found to have mild diffuse intimal irregularities. Just before its bifurcation, there is a 30% diffuse irregular narrowing. No other significant stenotic lesions. Interventional Findings * Mid Left Anterior Descending Coronary Artery: 80% stenosis treated with MDT R KATARINA 3.0X26 ABRAHAN. 0% residual stenosis, LA: 3 flow. * 1st Diagonal Coronary Artery: 90% stenosis treated with AB MINI TREK 2.00X12 RX BALLOON. 30% residual stenosis, LA: 3 flow. Conclusions 1. This is a 64-year-old white male with no significant past medical history except for strong family history for premature atherosclerotic heart disease, presented to the hospital with a prolonged episode of chest pain. He had a myocardial perfusion imaging which revealed an area of reversible defect in the anterior wall, suggestive of ischemia in the distribution of the left anterior descending artery. For further evaluation of his coronary status, a cardiac catheterization was recommended. Patient underwent left heart catheterization with left and right coronary angiogram and LV angiogram today. The findings are as follows. 2. The mid LAD was found to have a long irregular narrowing of around 70%. High-grade lesion was noted in the proximal segment of the second diagonal branch. Mild diffuse disease was noted in the other vessels. LV ejection fraction of 45 to 50%. LVEDP was 16 mmHg. 3. Based on the above angiographic findings, PCI of the LAD/diagonal artery lesions were thought to be appropriate. I reviewed and discussed the cardiac catheterization data with the Dr. Mckeon. Dr. Mckeon concurred with this plan and took over further management of this patient at this point. 4. Mid Left Anterior Descending Coronary Artery was treated with Drug Eluting Stent. 5. 1st Diagonal Coronary Artery was treated with Balloon. Recommendations * 1-Return to inpatient for close monitoring and routine cath care 2-Risk factor modification for secondary prevention 3-Statin and aspirin 81 mg life--long, if tolerated 4-Continue Plavix 75mg p.o. daily for at least one year. We will assess at the end of one year again to continue if further or not 5-Continue optimal medical management 6-Follow up with Dr. Fatima in four weeks and your primary care in 10 days. Diagnostic RX Recommendation: PCI w/o planned CABG Ventriculography Ejection Fraction: 50.0 % LV EDP: 16 mmHg Left Ventriculography Findings: * The LV gram was performed in the VELOZ view. The LV cavity appears to be upper limit of normal size. There is mild diffuse hypokinesia of the anteroapical region. The overall ejection fraction was 45 to 50%. The LVEDP was 16 mmHg. There was no significant mitral valve prolapse or mitral regurgitation. Pressures Phase:Rest AO : 114 / 75 ( 93 ) @ 1:29:00 AM 128 / 74 ( 98 ) @ 1:44:00 AM 132 / 71 ( 94 ) @ 1:44:00 AM 149 / 77 ( 105 ) @ 1:48:00 AM LV : 128 / 6 / @ 1:43:00 AM 135 / -6 / @ 1:44:00 AM 136 / -6 / @ 1:44:00 AM Valves Phase:DefaultPhase AV : 8.0 @ 8:25:22 AM AV Mean Gradient: 11.0 @ 8:25:22 AM Clinical Evaluation EBL: 5mL-10mL Procedural Details Procedure Consent Obtained. Pre-Procedure Time Out. Identified patient by full name and date of as verbalized by the patient/guarantor. Does the consent match the physician's order: Yes. Accurate & Complete Informed Consent: Yes. Inpatient/Outpatient History & Physical on Chart: Yes. If H&P is completed, is and addenduem needed: No; If yes, is the addendum complete: N/A. Visualize and Verify Site with Patient/Guarantor: N/A. Relevant Radiology Images available: N/A. Pre-op teaching completed and patient verbalized understanding. The risks, benefits, and alternatives of sedation and/or procedure were discussed by physician. The patient agrees to continue. Procedure started. [facility] Clinical Fraility Score: 4: Vulnerable. Civil Designer Indications: ACS > 24 hours. Chest Pain Symptom Assessment: Atypical Angina. Cardiovascular Instability: No. Correct patient, site and procedure confirmed by cath team. PERRLA. Strong, equal hand tissue technician bilaterally. Lungs clear x 5 lobes. IV Site on Arrival: 20 gauge in the right forearm. A 18 gauge IV was started in the right anticubital using aseptic technique. IV Fluids: 0.9% NaCl at KVO. 0 mL infused prior to cath lab nurse. Pre Procedural Pulses: bilateral posterior tibial was 3+. Pre Procedural Pulses: bilateral dorsalis pedis was 3+. Pre Procedural Pulses: bilateral radial was 3+. bilateral groins was prepped with chloroprep then draped in the usual sterile fashion. right brachial was prepped with chloroprep then draped in the usual sterile fashion. right radial was prepped with chloroprep then draped in the usual sterile fashion. Baseline sample Acquired. HR: 92 BPM. Physician notified. Equipment: 6F - Radial. Cardiac Cath Pack. ACIST Manifold Kit Model BT 2000. Heparinized Saline (2 units/mL), 1000 mL bag. Physician arrived. Physician scrubbed in. Immediate Pre-Procedure Time Out. Correct Patient: Yes; Correct Procedure: Yes; Correct Site: Yes; Correct Patient Position: Yes; Correct Supplies: Yes; Dried Flammable Prep: Yes; Blood Products Available: N/A;. Oxygen started at 2liters/min via nasal canula. Lidocaine 1% infiltrated to the right radial. Arterial access obtained. A 5 [place] Artur catheter in over wire. Multiple views taken of left coronary artery. Called Dr Mckeon to come view films. Catheter redirected to the RCA. Catheter removed over the exchange wire. A 5 [place] JR4 catheter in over wire. Multiple views taken of right coronary artery. Catheter removed over the exchange wire. A 5 [place] Angled Pig catheter in over wire. EDP Sample taken: LV 128/6,16; HR: 67 BPM; SpO2: 94%. LV gram performed in VELOZ @ 10 mL/second for a total of 30 mL. EDP Sample taken: LV 135/-7,14; HR: 71 BPM; SpO2: 94%. Pullback taken: LV 136/-6,15; AO 128/74(98); Mean: 11mmHg, Peak to Peak: 8mmHg, SEP: 18sec/min; HR: 70 BPM; SpO2: 94%. Catheter removed over the exchange wire. Dr Mckeon arrived to review films. Dr Fatima scrubbed out. Sheath flushed periodically to maintain patency. Inventory is [facility] 6 FR XB 3.5 GUIDE. Inventory is [employer] [place] XT .[address] Guidewire. Dr. Mckeon scrubbed in to perform intervention. Side port of sheath attached to Normal Saline flush at KVO to maintain patency. Dr Fatima called son and to give update. 6 [place] XB 3.5 guide catheter was inserted over the wire. Kourtney guidewire was advanced through the guide catheter to lesion in the mid LAD. Inflation Number : 1 A MDT R KATARINA 3.0X26 ABRAHAN -Lot Number# [id number] exp date 08/25/21 was prepped and advanced across the Mid LAD. The stent was deployed at 16 DARIUS for 0:18 seconds. Stent balloon out over wire. Kourtney repositioned to [facility]. Inflation number : 1 A AB MINI TREK 2.00X12 RX BALLOON was prepped and advanced across the 1st Diag , then inflated to 12 DARIUS for 0:19 seconds. Inflation number: 2 The AB MINI TREK 2.00X12 RX BALLOON was reinflated across the 1st Diag, to 14 DARIUS for 0:08 seconds. Inflation number: 3 The AB MINI TREK 2.00X12 RX BALLOON was reinflated across the 1st Diag, to 16 DARIUS for 0:14 seconds. Inflation number: 4 The AB MINI TREK 2.00X12 RX BALLOON was reinflated across the 1st Diag, to 16 DARIUS for 0:14 seconds. Balloon out. Results checked. Wire out. Guide catheter out. Physician scrubbed out. A TR Band was successful obtaining hemostatsis at the Right Radial artery insertion site. TR band placed. Hemostasis obtained. Post Procedure: Pulses reassessed and unchanged. PERRLA. Strong, equal hand tissue technician bilaterally. No VTE prophylaxis required. Medication's Wasted: Lidocaine 1% = 18 mL. Total IV fluids: 96.8 mL. Medication's Wasted: Nitro = 49.6 mg. Medication's Wasted: Heparin = 2000 units. Contrast type used: Omnipaque 300 mgI/mL, 500 mL bottle. PCI Indication: New Onset Angina, abnormal stress test. Post-op diagnosis: CAD. Complications: none. Estimated blood loss: 5mL-10mL. Procedure completed. Patient transferred by wheelchair to 1st floor. Vital chart was stopped. Access Site Site: Right Radial artery Sheath Size: 6 Fr Hemostasis Method: TR Band Hemostasis Success: Successful Procedure Medications Start: 7:14 AM Stop: 7:14 AM Medication: Versed Amount: 1 mg Route: I.V. Start: 7:14 AM Stop: 7:14 AM Medication: Fentanyl Amount: 50 mcg Route: I.V. Start: 7:17 AM Stop: 7:17 AM Medication: Versed Amount: 1 mg Route: I.V. Start: 7:17 AM Stop: 7:17 AM Medication: Fentanyl Amount: 50 mcg Route: I.V. Start: 7:24 AM Stop: 7:24 AM Medication: Verapamil Amount: 5 mg Route: I.A. Start: 7:24 AM Stop: 7:24 AM Medication: Nitrogylcerin Amount: 200 mcg Route: I.A. Start: 7:26 AM Stop: 7:26 AM Medication: Versed Amount: 1 mg Route: I.V. Start: 7:29 AM Stop: 7:29 AM Medication: Heparin Amount: 5000 units Route: I.V. Start: 7:50 AM Stop: 7:50 AM Medication: Versed Amount: 1 mg Route: I.V. Start: 7:57 AM Stop: 7:57 AM Medication: Aggrastat 12.5 mg/250 mL Amount: 48 ml Route: I.V. bolus Start: 7:59 AM Stop: 7:59 AM Medication: Heparin Amount: 4000 units Route: I.V. Start: 8:04 AM Stop: 8:04 AM Medication: Aggrastat 12.5 mg/250 mL Amount: 17.3 ml/hr Route: I.V. drip Start: 8:11 AM Stop: 8:11 AM Medication: Nitrogylcerin Amount: 200 mcg Route: I.C. Start: 8:21 AM Stop: 8:21 AM Medication: Brilinta Amount: 180 mg Route: P.O. I, the attending physician, have reviewed and verified all procedure medications. Yes, all medications given per verbal order History/Risk Factors Hypertension: Yes Dyslipidemia: Yes Peripheral Arterial Disease (PAD): No Myocardial Infarction (MT): No Obesity: No Renal Disease: No Tobacco Use: Never Prior Interventions PCI: No CABG: No Valve Surgery: No Report Signatures Interventional Workflow Finalized by Jaiden Mckeon MD on 02/16/2020 06:58 PM Diagnostic Workflow Finalized by Dr Clovis Fatima MD [facility] on 02/07/2020 09:58 AM
[2020-02-07] MEDS: diphenhydrAMINE 50 mg Capsule PO (06:47)
--- NOTE | 2020-02-07 06:48 | PC.NURSE ---
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 Zohreh steele given
--- NOTE | 2020-02-07 06:59 | PC.NURSE ---
REPORT/TRANSFER TO CSU Pt will be going to CSU after cath. Report was called to nurse. Belongings will be take to new room
--- NOTE | 2020-02-07 07:14 | W.PM.OPSUD ---
Surgery/Procedure H&P Update DATE OF PROCEDURE: February 07, 2020 DATE H&P PERFORMED: 02/06/20 H&P UPDATE INFORMATION: I have reviewed H&P completed within last 30 days, I have examined patient prior to procedure and No changes to prior documentation PREOP DIAGNOSIS: ASHD PLANNED PROCEDURE: Operation Date: 02/07/20 07:00 Proposed Procedures p Cardiac Catheterization(Not Applicable) - Clovis Fatima MD PATIENT REASSESSED PRIOR TO SEDATION, WITH NO CHANGE NOTED: Yes PHYSICAL EXAM: alert, clear to auscultation bilaterally and regular rate & rhythm AIRWAY EVAL/ANESTHESIA PLAN: normal airway, see other exam findings, ASA II, Monitored Anesthesia, Local Anesthesia, Risks, benefits & alternatives of sedation and/or procedure discussed and Patient agrees to continue as planned
--- NOTE | 2020-02-07 08:37 | PC.NURSE ---
patient recieved from microbiology lab technician via wheelchair. patient on aggrastat drip with a tr band to the right wrist. no hematoma noted. vital signs being monitored. call light within reach.
--- NOTE | 2020-02-07 10:10 | PC.NURSE ---
aggrastate stopped at 1010.
[2020-02-07] MEDS: aspirin 81 mg EC Tablet PO (10:38)
--- NOTE | 2020-02-07 11:57 | PC.CHAP ---
Pastoral Care Encounter/Spiritual Assessment Type of Contact [] Declined change management manager visit [] Patient/Family/Request visit [] Outpatient visit [] Follow-up visit [] Physician referral [] Code/Alert [xx] Routine visit [] Staff referral [] Actively dying [] Patient sleeping [] Family support [] [] Out of room [] Palliative care [] [] Receiving care in room [] Pre-surgical visit [] Trauma [] Long length of stay [] ICU visit [] Other: Relational/Emotional Strength [xx] Patient feels connected with others/family/visitors/staff [] Distress [] Loneliness/isolation [] Abandonment Spirituality of Patient [xx] Person of Farhana [xx] Attends Sikhism of their Farhana [xx] Believes in Prayer [] Reads Bible or Spiritism materials [] There are Spiritual issues to be addressed Welding Technician Interventions [xx] Prayer [xx] Active listening [xx] Non-anxious presence [] Spiritual/emotional support [] Crisis/trauma care [] Spiritual counseling [] Bereavement support [] Provided bereavement packet [] Provided Bible/devotional materials [] Provided toy/stuffed animal, coloring book to patient or family member [] Provided Communion [] Anointing/[place] [] Salvation [xx] Completed spiritual assessment [] Other: Impact on Illness or Injury [] Angry [] Fearful [] Anxious [] Often cries [] Exhaustion [] Unable to work [] Unable to attend synagogue [] Unable to walk/stand [] Unable to read [] Unable to drive [] Unable to eat/drink [] Unable to sleep [xx] Unable to be with family [] Patient intubated [] Other: Summary Pt doing well after treatment and expects to be discharged by end of day. He will be with family for [place] holidays. Time spent with patient 4 minutes
--- NOTE | 2020-02-07 12:45 | PC.NURSE ---
tr band removed. dressing in place. no hematoma present. call light within reach.
--- NOTE | 2020-02-07 13:01 | P.PN_ITS ---
Subjective Subjective: Interval history: underwent C today with placement of ABRAHAN into mid LAd and ballooning of diagnol branch, patient tolerated the procedure well. chets pain now resolved Medications: Reviewed: Yes Vitals/I&O/Wt Last Vital Signs Temp 97.9 F 02/07/20 12:24 Pulse 75 02/07/20 12:56 Resp 16 02/07/20 12:24 BP 132/84 02/07/20 12:24 Pulse Ox 97 02/07/20 12:56 02/06/20 02/07/20 02/07/20 22:59 06:59 14:59 Intake Total 480 / 480 300 / 780 480 / 480 Balance 480 / 480 300 / 780 480 / 480 Weight last 48 hrs Weight 95.254 kg Physical Exam Narrative: EXAM NARRATIVE: GEN: Awake, alert and oriented, no acute distress CVS: S1S2 N RS: CTA B/L Abd: Soft, nt/nd , bs+ ARCHITECTURE PROFESSOR: no focal neuro deficits Data : 02/05/20 16:50 02/06/20 04:44 A&P Assessment and plan (1) Angina of effort: Status: Acute (2) Hypertension: Status: Acute Qualifiers: Hypertension type: essential hypertension Qualified Code(s): I10 - Essential (primary) hypertension Additional A&P Information Unstable angina Substernal chest pain lasting 2 to 5 minutes, relieved with rest, family history positive, Sinus rhythm on EKG, troponin series is negative + stress test on 02/05, followed by [facility] today with stenting to mid LAD and ballooning to Lcx Start aspirin 81 mg, atorvastatin 40 mg daily, also now on Brilinta added today DVT prophylaxis: Lovenox Attestations Medical Necessity Statement*: s/p LHC today with placement of ABRAHAN Coding Level of Care Code Acute Road Mechanic for Chg Fwd Diagnoses Angina of effort I20.8 Hypertension I10 Hypertension type: essential hypertension
[2020-02-07] MEDS: metoprolol tartrate 25 mg Tablet 12.5 MG PO (18:14)
--- NOTE | 2020-02-07 19:09 | PC.NURSE ---
Received report from MANISH Basurto. Patient is s/p [facility] with right radial access. Patient has dressing in place which is c,d,i. No s/s of bleeding or hematoma formation observed. Reinforced site care instruction and restrictions. Patient verbalized understanding. Patient denies pain or other needs. No distress observed.
[2020-02-07] MEDS: atorvastatin 40 mg Tablet PO (20:16)
--- NOTE | 2020-02-07 20:26 | PM.PN ---
Subjective Subjective: Interval history: This patient underwent left heart catheterization with left and right coronary angiogram and LV angiogram today. He was found to have a high-grade lesion in the LAD and the diagonal branch for which underwent PCI. Currently he is remaining stable with no chest pain. Medications: Reviewed: Yes Medication Review Details: Current Medications Acetaminophen (Acetaminophen 325 Mg Tablet) 650 mg PO Q6H PRN PRN Reason: MILD PAIN Hydrocodone Bitart/Acetaminophen (Hydrocodone-Acetaminophen 5-325 Mg Tablet) 1 tab PO Q4H PRN PRN Reason: PAIN Al Hydrox/Mg Hydrox/Simethicone (Sdwg-Wzh-Amxjnfgzi-Nelia 30 Ml Udc) 30 ml PO Q15M PRN PRN Reason: INDIGESTION Alprazolam (Alprazolam 0.25 Mg Tablet) 0.25 mg PO TID PRN PRN Reason: ANXIETY Aspirin (Aspirin 81 Mg Ec Tablet) 81 mg PO DAILY [facility] Last Admin: 02/07/20 10:38 Dose: 81 mg Documented by: Atorvastatin Calcium (Atorvastatin 40 Mg Tablet) 40 mg PO BEDTIME [facility] Last Admin: 02/07/20 20:16 Dose: 40 mg Documented by: Atropine Sulfate (Atropine 1 Mg/Ml Sdv 1 Ml) 0.5 mg IVP PRN PRN PRN Reason: Symptomatic bradycardia Esmolol HCl (Esmolol 100 Mg/10 Ml Sdv) 5 mg IV PRN PRN PRN Reason: See dose instructions Fentanyl (Fentanyl 50 Mcg/Ml Inj 2ml) 50 mcg IVP PRN PRN PRN Reason: Prior to sheath removal Sodium Chloride (Sodium Chloride 0.9%) 1,000 mls @ 50 mls/hr IV .Q20H ONE Stop: 02/08/20 01:59 Last Admin: 02/07/20 05:20 Dose: 50 mls/hr Documented by: Magnesium Hydroxide (Magnesium Hydroxide 30 Ml Udc) 30 ml PO DAILY PRN PRN Reason: CONSTIPATION Metoprolol Tartrate (Metoprolol Tartrate 1 Mg/1 Ml Sdv 5 Ml) 5 mg IV PRN PRN PRN Reason: See dose instructions Metoprolol Tartrate (Metoprolol Tartrate 25 Mg Tablet) 12.5 mg PO BID [facility] Last Admin: 02/07/20 18:14 Dose: 12.5 mg Documented by: Naloxone HCl (Naloxone 0.4 Mg/Ml Sdv) 0.1 mg IVP Q2M PRN PRN Reason: RESPIRATORY RATE < 8/MIN Ondansetron HCl (Ondansetron 2 Mg/Ml Sdv 2 Ml) 4 mg IVP PRN PRN PRN Reason: NAUSEA Temazepam (Temazepam 15 Mg Capsule) 15 mg PO BEDTIME PRN PRN Reason: INSOMNIA Ticagrelor (Ticagrelor 90 Mg Tablet) 90 mg PO BID ROBERTO Vitals/I&O/Wt Last Vital Signs Temp 97.7 F 02/07/20 19:29 Pulse 77 02/07/20 19:29 Resp 16 02/07/20 19:29 BP 123/70 02/07/20 19:29 Pulse Ox 97 02/07/20 15:35 02/07/20 02/07/20 02/07/20 06:59 14:59 22:59 Intake Total 300 / 780 480 / 480 240 / 720 Output Total 600 / 600 Balance 300 / 780 480 / 480 -360 / 120 Physical Exam Narrative: EXAM NARRATIVE: GENERAL: The patient is alert and oriented times three. Not in any acute distress. HEENT: No significant pallor, icterus or lymphadenopathy. The pupils are reactant to light. Oral cavity: There are no mucous membrane lesions. NECK: Trachea appears to be central. No masses noted. No JVD or thyromegaly appreciated. No carotid bruit. RESPIRATORY: Chest is symmetrical. No intercostals muscle retraction or any accessory muscle activation. There is no chest wall tenderness. Breath sounds are heard bilaterally. No rales or rhonchi heard. No evidence of any consolidation. BREASTS: Deferred. HEART: The PMI is in the 5th left intercostals space just inside the midclavicular line. No palpable precordial events. S1 and S2 are normal. No S3 or S4 heard. No pericardial rub or any click heard. ABDOMEN: No vessel pulsations or distention. No tenderness. No organomegaly appreciated. No abdominal bruit. Bowel sounds are normally heard. : Deferred. RECTAL: Deferred. LYMPHATIC: No lymphadenopathy noted in the neck or groin. EXTREMITIES: No edema or cyanosis. No clubbing. The peripheral pulses are felt in fairly good volume and amplitude. MUSCULOSKELETAL: No acute joint deformities or swelling. SKIN: There are no significant scars or skin rash noted. NEUROPSYCHIATRIC: The patient is alert and oriented x3. Appears to be in a good mood. The higher functions are grossly within normal limits. No tremors or rigidity noted. Const: COMMON NORMALS: alert Resp: COMMON NORMALS: clear to auscultation bilaterally AUSCULTATION: clear to auscultation bilaterally Neuro: SENSORIUM/ORIENTATION: Yes alert Data : 02/05/20 16:50 02/06/20 04:44 A&P Assessment and plan (1) Unstable angina: Patient status post PCI of the LAD/diagonal artery. Same stable. Has mild disease in the other vessels. Was started on Brilinta which may be continued. Discontinue the Lovenox. Status: Acute (2) Dyslipidemia: Continue on the current medications. Status: Acute (3) Hypertension: Patient is currently on metoprolol 12.5 mg p.o. twice daily. This may be continued. I also may add lisinopril 2.5 mg p.o. daily. Blood pressure needs to be closely monitored Status: Acute Qualifiers: Hypertension type: essential hypertension Qualified Code(s): I10 - Essential (primary) hypertension Additional A&P Information If the patient continues remain stable, may be discharged home tomorrow. I may see him in the office in 3 weeks. He will be seen by the nurse practitioner at the heart care services in 1 week. Attestations Medical Necessity Statement*: Patient requires continued hospital stay for close monitoring and further management Coding Level of Care Code Acute Hand Alterations Seamstress for Pk Sargent Diagnoses Unstable angina I20.0 Dyslipidemia E78.5 Hypertension I10 Hypertension type: essential hypertension
[2020-02-07] MEDS: lisinopril 2.5 mg Tablet PO (21:38)
[2020-02-08] VITALS (7 sets, daily range): BP systolic 113–128; BP diastolic 67–86; PULSE 55–72; RESP 14–19; TEMP 36.6; O2SAT 94–96
[2020-02-08 05:40] LABS: Basophils % 0.4 %; Eosinophils # 0.2 10^3/uL (0.0-0.8); Eosinophils % 2.3 %; Hematocrit 46.4 % (42.0-52.0); Hemoglobin 15.5 g/dL (11.7-16.6); Lymphocytes # 2.8 10^3/uL (0.8-4.8); Lymphocytes % 28.6 %; Mean Corpuscular HGB Conc 33.4 g/dL (30.0-36.0); Mean Corpuscular Hemoglobin 30.6 pg (28.0-34.0); Mean Corpuscular Volume 91.5 fL (80-94); Mean Platelet Volume 8.9 fL (7.4-10.4); Monocytes # 0.8 10^3/uL (0.2-0.9); Monocytes % 8.4 %; Neutrophils # 5.81 10^3/uL (1.8-7.7); Neutrophils % 59.8 %; Nucleated Red Blood Cells % 0 %; Platelet Count 217 10^3/cmm (130-400); Red Blood Count 5.07 10^6/uL (4.1-5.3); Red Cell Distribution Width 13.3 % (12.1-15.1); White Blood Count 9.7 10^3/uL (4.0-10.0)
[2020-02-08 06:20] LABS: Alanine Aminotransferase 20 U/L (0-41); Alkaline Phosphatase 57 IU/L (40-130); Anion Gap 12.8 (5-19); Aspartate Amino Transferase 14 U/L (0-40); Blood Urea Nitrogen 17 mg/dL (8-23); Calcium 8.8 mg/dL (8.5-10.5); Carbon Dioxide 27 mmol/L (22-29); Chloride 104 mmol/L (98-107); Globulin 2.1 g/dL (1.3-4.6); Glomerular Filtration Rate 97.6 mL/min (90-130); Glucose 96 mg/dL (65-115); Osmolality Calculated 291 mOsm/kg (285-295); Potassium 3.8 mmol/L (3.5-5.1); Sodium 140 mmol/L (136-145); Total Bilirubin 0.5 mg/dL (0.15-1.2); Total Protein 6.1 g/dL (6.6-8.7)
[2020-02-08] MEDS: aspirin 81 mg EC Tablet PO (10:06)
[2020-02-08] MEDS: metoprolol tartrate 25 mg Tablet 12.5 MG PO (10:07)
[2020-02-08] MEDS: lisinopril 2.5 mg Tablet PO (10:07)
[2020-02-08] MEDS: ticagrelor 90 mg Tablet PO (10:07)
--- NOTE | 2020-02-08 12:39 | PM.DCS ---
Discharge Providers Date of Admission: 02/06/20 15:53 Date of Discharge: February 08, 2020 Attending Provider at Admission: Jaiden Ojeda MD Attending Provider at Discharge: Iveth Nielsen MD Diagnoses at Discharge Discharge Diagnosis (1) Unstable angina: Status: Acute (2) Dyslipidemia: Status: Acute (3) Hypertension: Status: Acute Qualifiers: Hypertension type: essential hypertension Qualified Code(s): I10 - Essential (primary) hypertension (4) Coronary artery disease: Status: Acute Reason for Visit Reason for Visit: CP Hospital Course Hospital Course 64-year-old male with no known past medical history presented to the hospital complaining of chest pain with exertion. Symptoms sound consistent with unstable angina. Troponin series was negative. EKG did not show any acute ST-T wave changes. He underwent a stress test which showed reversible defects in the anterior and inferior denis, consistent with LAD territory. Thereafter he underwent an angiogram on 02/07/2020 and had a drug-eluting stent placed in the LAD and balloon angioplasty to the diagnol branch. He is doing well postprocedure. No recurrence of chest pain since then. He is being discharged today on aspirin and Brilinta along with atorvastatin. Lipid panel did show hyperlipidemia and he has been counseled to take his medications as prescribed. Lisinopril 2.5 mg p.o. daily has also been added to his regimen along with metoprolol twice daily. 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 Mckeon in 1 month. Physical Exam Narrative: EXAM NARRATIVE: GEN: Awake, alert and oriented, no acute distress CVS: S1S2 N RS: CTA B/L Abd: Soft, nt/nd , bs+ PROOFER BLACK AND WHITE: no focal neuro deficits Discharge Data Data Completed and Pending: Completed Studies During Hospitalization Category Date Time Status Sestamibi Stress Test Request Routi ne Exams 02/06/20 06:00 Completed XR chest 1V hernandez ble [id number] Stat Exams 02/05/20 15:23 Completed NM savanna perf SPECT r/s* [id number] Routin e Nuc Med 02/06/20 07:00 Completed CV echo complete* [id number] Routine Ultrasound 02/06/20 09:00 Completed Pending at discharge Category Date Time Status POLITICAL SCIENTIST request for service Routin e Exams 02/07/20 06:45 Taken Labs from last 24 hours 02/08/20 02/08/20 04:37 04:37 WBC 9.7 RBC 5.07 Hgb 15.5 Hct 46.4 MCV 91.5 MCH 30.6 MCHC 33.4 RDW 13.3 Plt Count 217 MPV 8.9 Neut % (Auto) 59.8 Lymph % (Auto) 28.6 [place] % (Auto) 8.4 Eos % (Auto) 2.3 Baso % (Auto) 0.4 Neut # (Auto) 5.81 Lymph # (Auto) 2.8 [place] # (Auto) 0.8 Eos # (Auto) 0.2 Baso # (Auto) 0.0 Nucleated RBC % (a uto) 0 Nucleated RBCs # 0.0 Sodium 140 Potassium 3.8 Chloride 104 Carbon Dioxide 27 Anion Gap 12.8 BUN 17 Creatinine 0.8 GFR Calculation 97.6 Glucose 96 Calculated Osmolal ity 291 Calcium 8.8 Total Bilirubin 0.5 AST 14 ALT 20 Alkaline Phosphata se 57 Total Protein 6.1 L Albumin 4.0 Globulin 2.1 Vitals: Last Vital Signs Temp 97.9 F 02/08/20 07:20 Pulse 72 02/08/20 12:11 Resp 18 02/08/20 12:11 BP 128/81 02/08/20 12:11 Pulse Ox 96 02/08/20 12:11 Discharge Plan Discharge Patient Disposition: Home Condition: Stable Prescriptions: New atorvastatin 40 mg Tablet 40 mg PO BEDTIME Qty: 90 RF: 4 lisinopril 2.5 mg Tablet 2.5 mg PO DAILY Qty: 90 RF: 3 metoprolol tartrate 25 mg Tablet 12.5 mg PO BID Qty: 60 RF: 6 Brilinta 90 mg Tablet 90 mg PO BID Qty: 180 RF: 4 Adult Aspirin Regimen 81 mg tablet,delayed release (DR/EC) 81 mg PO DAILY 90 Days RF: 4 Discharge Orders: Discharge Order (Routine); Ordered 02/08/20 Ordered By: Iveth Nielsen Referrals: Clovis Fatima MD [Physician] - 1 month Viki Dugan FNP [Nurse Practitioner] - 1 week Discharge Diet: Cardiac, Low Salt and Low Fat Discharge Activity: Resume usual activity Patient Instructions: Chest Pain Stoplight, Post Angiogram Home Care Instructions Activity Restrictions/Additional Instructions: Follow-up with Viki Dugan cardiology nurse practitioner in 7 to 10 days. Keep a log of blood pressure and pulse bring it with you when you come to see Viki Dugan cardiology nurse practitioner. Discharge Attestations Time Spent in Discharge Care*: greater than 30 min Quality Metrics Clinical Quality Measures During this hospital stay, did patient experience: None Coding Level of Care Code Acute Brief Writer for Pk Fwd Diagnoses Unstable angina I20.0 Dyslipidemia E78.5 Hypertension I10 Hypertension type: essential hypertension Coronary artery disease I25.10
--- NOTE | 2020-02-08 12:52 | PM.PN ---
Subjective Subjective: Interval history: No overnight event doing much better denies any complaint. Ready to go home Medications: Reviewed: Yes Medication Review Details: Current Medications Acetaminophen (Acetaminophen 325 Mg Tablet) 650 mg PO Q6H PRN PRN Reason: MILD PAIN Hydrocodone Bitart/Acetaminophen (Hydrocodone-Acetaminophen 5-325 Mg Tablet) 1 tab PO Q4H PRN PRN Reason: PAIN Al Hydrox/Mg Hydrox/Simethicone (Rrqt-Wrd-Gfprwuccr-Nelia 30 Ml Udc) 30 ml PO Q15M PRN PRN Reason: INDIGESTION Alprazolam (Alprazolam 0.25 Mg Tablet) 0.25 mg PO TID PRN PRN Reason: ANXIETY Aspirin (Aspirin 81 Mg Ec Tablet) 81 mg PO DAILY [facility] Last Admin: 02/07/20 10:38 Dose: 81 mg Documented by: Atorvastatin Calcium (Atorvastatin 40 Mg Tablet) 40 mg PO BEDTIME [facility] Last Admin: 02/07/20 20:16 Dose: 40 mg Documented by: Atropine Sulfate (Atropine 1 Mg/Ml Sdv 1 Ml) 0.5 mg IVP PRN PRN PRN Reason: Symptomatic bradycardia Esmolol HCl (Esmolol 100 Mg/10 Ml Sdv) 5 mg IV PRN PRN PRN Reason: See dose instructions Fentanyl (Fentanyl 50 Mcg/Ml Inj 2ml) 50 mcg IVP PRN PRN PRN Reason: Prior to sheath removal Sodium Chloride (Sodium Chloride 0.9%) 1,000 mls @ 50 mls/hr IV .Q20H ONE Stop: 02/08/20 01:59 Last Admin: 02/07/20 05:20 Dose: 50 mls/hr Documented by: Magnesium Hydroxide (Magnesium Hydroxide 30 Ml Udc) 30 ml PO DAILY PRN PRN Reason: CONSTIPATION Metoprolol Tartrate (Metoprolol Tartrate 1 Mg/1 Ml Sdv 5 Ml) 5 mg IV PRN PRN PRN Reason: See dose instructions Metoprolol Tartrate (Metoprolol Tartrate 25 Mg Tablet) 12.5 mg PO BID [facility] Last Admin: 02/07/20 18:14 Dose: 12.5 mg Documented by: Naloxone HCl (Naloxone 0.4 Mg/Ml Sdv) 0.1 mg IVP Q2M PRN PRN Reason: RESPIRATORY RATE < 8/MIN Ondansetron HCl (Ondansetron 2 Mg/Ml Sdv 2 Ml) 4 mg IVP PRN PRN PRN Reason: NAUSEA Temazepam (Temazepam 15 Mg Capsule) 15 mg PO BEDTIME PRN PRN Reason: INSOMNIA Ticagrelor (Ticagrelor 90 Mg Tablet) 90 mg PO BID ROBERTO Vitals/I&O/Wt Last Vital Signs Temp 97.9 F 02/08/20 07:20 Pulse 72 02/08/20 12:43 Resp 18 02/08/20 12:43 BP 128/81 02/08/20 12:43 Pulse Ox 96 02/08/20 12:43 02/07/20 02/08/20 02/08/20 22:59 06:59 14:59 Intake Total 240 / 720 120 / 840 220 / 220 Output Total 600 / 600 Balance -360 / 120 120 / 240 220 / 220 Physical Exam Narrative: EXAM NARRATIVE: GENERAL: Patient is alert, awake and oriented x3. NECK: No jugular vein distension. HEENT: No cyanosis. No icterus. No pallor. HEART: Regular S1 and S2. No murmur, rub or gallop. LUNGS: Clear to auscultate bilaterally. ABDOMEN: Soft, nontender and nondistended. Positive bowel sounds. No guarding, rebound or tenderness. CENTRAL NERVOUS SYSTEM: Grossly nonfocal. EXTREMITIES: Lower extremities with right wrist wound looks good no edema bilaterally. Pulses palpable in the lower extremities, both dorsalis pedis and posterior tibial. Data : 02/08/20 04:37 02/08/20 04:37 A&P Assessment and plan (1) Unstable angina: Status post PCI to mid LAD with single drug-eluting stent and balloon angioplasty to diagonal proximal segment with good angiographic result. Advise continuing ticagrelor 90 mg twice daily and aspirin 81 mg along with the rest of the medicine including RAPHAEL inhibitor and beta-reddy. Follow-up with Dr. Fatima and Viki Dugan Status: Acute (2) Dyslipidemia: Continue statin Status: Acute (3) Hypertension: Medicine is optimized blood pressure is well controlled Status: Acute Qualifiers: Hypertension type: essential hypertension Qualified Code(s): I10 - Essential (primary) hypertension Additional A&P Information If the patient continues remain stable, may be discharged home tomorrow. I may see him in the office in 3 weeks. He will be seen by the nurse practitioner at the heart care services in 1 week. Attestations Medical Necessity Statement*: Patient require continuation hospitalization for above defined care. Coding Level of Care Code Established Pt Acute Parent Aide for Chg Fwd Patient Type Established History Expanded Problem Focused Exam Expanded Problem Focused Medical Decision Making Moderate Complexity Diagnoses Unstable angina I20.0 Dyslipidemia E78.5 Hypertension I10 Hypertension type: essential hypertension
== END 2020-02-08 13:30 | disposition home or self-care (01) | DRG 247 ==
LOC: ER 16:45 → MEDSURG 20:52 → CSU 02-07 07:53
PROVIDERS: Emergency Medicine; Internal Medicine Cardiovascular Disease; Admitting Provider Internal Medicine; Emergency Provider Student in an Organized Health Care Education/Training Program; Visit Provider Student in an Organized Health Care Education/Training Program
PROC: 027034Z Dilation of Coronary Artery, One Artery with Drug-eluting Intraluminal Device, Percutaneous Approach (ICD-10-PCS; principal; 2020-02-07 07:00)
DX: I25.110 Atherosclerotic heart disease of native coronary artery with unstable angina pectoris (principal); E78.5 Hyperlipidemia, unspecified; I10 Essential (primary) hypertension
CPT/HCPCS: 12345; 36415; 71045; 78452; 80048; 80053; 80061; 83036; 84484; 85025; 85378; 93005; 93017; 93306; 93452; 96372; 99283; A9500; C1725; C1769; C1874; C1887; C1894; C9600; G0378; J1644; J1650; J2250; J3010; J3246; J3490; J7030; Q0163; Q9967

== ENCOUNTER → 2020-02-14 10:55 | Outpatient (BNVA) | payer OTHER, SELFPAY | PROVIDERS: Visit Provider Nurse Practitioner Family | DX: I25.119 Atherosclerotic heart disease of native coronary artery with unspecified angina pectoris (principal) | CPT/HCPCS: 80048 ==

== ENCOUNTER 2020-04-19 19:19 | Inpatient (IN) | payer OTHER, SELFPAY ==
[2020-04-19] VITALS (22 sets, daily range): BP systolic 139–164; BP diastolic 79–106; PULSE 53–85; RESP 5–21; TEMP 36.8; O2SAT 92–96; BMI 31.1
--- NOTE | 2020-04-19 19:39 | XR_ITS ---
WS: [id number] Exam: XR chest 1V portable [id number] Date/Time of Exam: 04/19/2020 7:39 PM Reason For Exam: cp Comparison 02/05/2020. Findings: The lungs are clear and fully expanded. Costophrenic angles are sharp. No infiltrates. Bronchovascula r relief appears normal. Cardiac silhouette is unremarkable. Bony elements are intact. XR/XR chest 1V portable [id number] IMPRESSION: Unremarkable chest radiograph.
--- NOTE | 2020-04-19 19:40 | ECG_ITS ---
[facility] Test Date: 2020-04-19 Pat Name: Myron Clayton Department: Room: Gender: Male Finance Business Partner: : [id number] Requested By: Michael Moran Order Number: [id number] Brad MD: Kari Rivera M.D. Measurements Intervals [place] Rate: 62 P: [place]: QRS: 33 QRSD: 117 T: -3 QT: 423 QTc: 431 Interpretive Statements Sinus rhythm MODERATE INTRAVENTRICULAR CONDUCTION DELAY [110+ ms QRS DURATION] Nonspecific T wave changes compared to ECG 02/05/2020 17:06:18 Sinus rhythm no longer present First degree AV block no longer present Electronically Signed On 04-20-2020 12:43:05 GAMBLING COUNSELLOR by Kari Rivera M.D. [id number]
--- NOTE | 2020-04-19 20:03 | ED_ITS ---
HPI - Chest Pain General: Chief Complaint: Chest Pain Stated Complaint: CP Time Seen by Provider: 04/19/20 19:42 History of Present Illness: HPI narrative: 65-year-old gentleman with a history of coronary disease. He had a stent placed in the LAD with an angio plasty to another vessel back in January. He reports he had done well until last night. He began to have some chest discomfort with activity last night. Tonight he had chest discomfort while sitting at home. He notes that this was significant discomfort, more significant than before he had his stents. He rated it as a 7. Currently it is less than 1 . He did not have significant shortness of breath or nausea. It did radiate into his neck. he did not take anything at home for this. MD complaint: chest pain Pertinent past history: coronary artery disease Onset (ago): hour(s) Timing of current episode: episodic Prior episodes: Yes Onset: during rest Pain location: substernal and left chest Pain radiation: neck Severity: severe Quality: aching and heaviness Relieving factors: nothing Exacerbating factors: nothing Associated symptoms: Reports sense of impending doom; Deny abdominal pain, diaphoresis, dyspnea, fever(s), leg edema, nausea, palpitations or vomiting Treatment prior to arrival: none Review of Systems Const: Denies: fever(s) or diaphoresis Eyes: Denies: change in vision ENMT: Denies: throat pain, odynophagia or nasal congestion Card: Reports: chest pain; Denies: palpitations, irregular heart rhythm or edema Resp: Denies: dyspnea, productive cough, non-productive cough or wheezing GI: Denies: abdominal pain, nausea or vomiting : Denies: difficulty urinating Neuro: Denies: headache(s) or weakness in extremities PFS ED PFSH: Medical History Atypical chest pain Dyslipidemia No significant past medical history Unstable angina Surgical History H/O shoulder surgery History of ankle surgery History of tonsillectomy Family History Father CAD (coronary artery disease) First [place] age 48, at age 61 Diabetes Mother CAD (coronary artery disease) Grandfather CAD (coronary artery disease) Grandmother CAD (coronary artery disease) Diabetes Stroke Denies family history of Clotting disorder Dementia Chronic kidney disease (CKD) Suicide Anesthesia complication Bleeding disorder Lung disease Cancer Social History Smoking and tobacco status: former smoker Alcohol intake: never Physical Exam Const: GENERAL APPEARANCE: well developed ORIENTATION/CONSCIOUSNESS: Yes oriented to person, Yes oriented to place and Yes oriented to time HENMT: COMMON NORMALS: normocephalic, external ears normal and Normal external nose present HEAD & SCALP: normocephalic FACE & SINUS: normal facial exam NOSE: Normal external nose present and No nasal discharge present EXTERNAL EAR: Yes external ears normal Eye: COMMON NORMALS: Equal, round and reactive pupils present, EOMs intact bilaterally and conjunctivae normal EYELID: eyelids normal CONJUNCTIVA: Yes conjunctivae normal PUPIL: Yes Equal, round and reactive pupils present Neck/C-Spine: GENERAL: No tracheal deviation Chest: COMMONS NORMALS: normal inspection of the chest CHEST: No tenderness Resp: COMMON NORMALS: clear to auscultation bilaterally EFFORT & INSPECTION: No tachypneic, No respiratory distress, No retractions, No uses accessory muscles and No tracheal deviation AUSCULTATION: clear to auscultation bilaterally, no rhonchi, no wheezes and lung sounds not diminished Cardio: COMMON NORMALS: regular rhythm RATE: bradycardic RHYTHM: regular rhythm HEART SOUNDS: no murmurs PERIPHERAL PULSES: radial pulses present GI: INSPECTION: No abdominal distension AUSCULTATION: No Hyperactive bowel sounds present and No Hypoactive bowel sounds present PALPATION: No Guarding due to palpation present (GI) and No Rigid due to palpation PERCUSSION: no dullness to percussion and no tympanic to percussion Neuro: SENSORIUM/ORIENTATION: Yes oriented to person, Yes oriented to place and Yes oriented to time Psych: COMMON NORMALS: mental status grossly normal Skin: COMMON NORMALS: no rashes or lesions noted GENERAL SKIN EXAM: no rashes or lesions noted Course Consultations: Consultation #1: eliezer Vital Signs: Vital signs: Vital Signs Temperature 98.3 F 04/19/20 19:35 Pulse Rate 85 04/19/20 23:30 Respiratory Rate 21 H 04/19/20 23:30 Blood Pressure 139/89 04/19/20 23:30 Pulse Oximetry 94 04/19/20 23:30 MDM - Chest Pain MDM Narrative: Medical decision making narrative: 65-year-old gentleman with a history of coronary disease, with recent stenting [address] changes on his EKG. First troponin was negative, but with a delta of 5. His pain is controlled at this point. His hemoglobin is 15. White blood cell count 7.7. X-ray shows cardiomegaly without infiltrate or effusion. He will be observed overnight for the 6-hour troponin and any other further evaluation necessary. Lab Data: Labs: Lab Results 04/19/20 04/19/20 04/19/20 Range/Units 19:47 19:47 19:47 WBC 7.7 (4.0-10.0) 10^3/ uL RBC 4.85 (4.1-5.3) 10^6/u L Hgb 14.9 (11.7-16.6) g/dL Hct 43.9 (42.0-52.0) % MCV 90.5 (80-94) fL MCH 30.7 (28.0-34.0) pg MCHC 33.9 (30.0-36.0) g/dL RDW 13.0 (12.1-15.1) % Plt Count 231 (130-400) 10^3/c mm MPV 8.9 (7.4-10.4) fL Neut % (Auto) 47.9 % Lymph % (Auto) 40.0 % [place] % (Auto) 7.6 % Eos % (Auto) 3.1 % Baso % (Auto) 0.9 % Neut # (Auto) 3.69 (1.8-7.7) 10^3/u L Lymph # (Auto) 3.1 (0.8-4.8) 10^3/u L [place] # (Auto) 0.6 (0.2-0.9) 10^3/u L Eos # (Auto) 0.2 (0.0-0.8) 10^3/u L Baso # (Auto) 0.1 (0.0-0.1) 10^3/u L Nucleated RBC % (a uto) 0 % Nucleated RBCs # 0.0 /100WBC D-Dimer 0.29 (0-0.59) ug/mIFE U Sodium 139 (136-145) mmol/L Potassium 4.0 (3.5-5.1) mmol/L Chloride 105 (98-107) mmol/L Carbon Dioxide 24 (22-29) mmol/L Anion Gap 14.0 (5-19) BUN 25 H (8-23) mg/dL Creatinine 0.6 L (0.7-1.2) mg/dL GFR Calculation 135.6 H (90-130) mL/min Glucose 101 (65-115) mg/dL Calculated Osmolal ity 293 (285-295) mOsm/k g Calcium 9.3 (8.5-10.5) mg/dL Total Bilirubin 0.3 (0.15-1.2) mg/dL AST 18 (0-40) U/L ALT 26 (0-41) U/L Alkaline Phosphata se 73 (40-130) IU/L Troponin T Baselin e (0-15) ng/L Troponin T 120 Min [place] (0-15) ng/L Delta Troponin T (0-10) ABS# NT-Pro-B Natriuret Pep 65 (0-125) pg/mL Total Protein 6.5 L (6.6-8.7) g/dL Albumin 4.3 (3.5-5.2) g/dL Globulin 2.2 (1.3-4.6) g/dL 04/19/20 04/19/20 Range/Units 19:47 21:06 WBC (4.0-10.0) 10^3/ uL RBC (4.1-5.3) 10^6/u L Hgb (11.7-16.6) g/dL Hct (42.0-52.0) % MCV (80-94) fL MCH (28.0-34.0) pg MCHC (30.0-36.0) g/dL RDW (12.1-15.1) % Plt Count (130-400) 10^3/c mm MPV (7.4-10.4) fL Neut % (Auto) % Lymph % (Auto) % [place] % (Auto) % Eos % (Auto) % Baso % (Auto) % Neut # (Auto) (1.8-7.7) 10^3/u L Lymph # (Auto) (0.8-4.8) 10^3/u L [place] # (Auto) (0.2-0.9) 10^3/u L Eos # (Auto) (0.0-0.8) 10^3/u L Baso # (Auto) (0.0-0.1) 10^3/u L Nucleated RBC % (a uto) % Nucleated RBCs # /100WBC D-Dimer (0-0.59) ug/mIFE U Sodium (136-145) mmol/L Potassium (3.5-5.1) mmol/L Chloride (98-107) mmol/L Carbon Dioxide (22-29) mmol/L Anion Gap (5-19) BUN (8-23) mg/dL Creatinine (0.7-1.2) mg/dL GFR Calculation (90-130) mL/min Glucose (65-115) mg/dL Calculated Osmolal ity (285-295) mOsm/k g Calcium (8.5-10.5) mg/dL Total Bilirubin (0.15-1.2) mg/dL AST (0-40) U/L ALT (0-41) U/L Alkaline Phosphata se (40-130) IU/L Troponin T Baselin e 7 (0-15) ng/L Troponin T 120 Min [place] 11.31 (0-15) ng/L Delta Troponin T 4.31 (0-10) ABS# NT-Pro-B Natriuret Pep (0-125) pg/mL Total Protein (6.6-8.7) g/dL Albumin (3.5-5.2) g/dL Globulin (1.3-4.6) g/dL Discharge Plan Discharge Patient Disposition: Placed in Observation Clinical Impression: Chest pain Qualifiers: Chest pain type: precordial pain Qualified Code(s): R07.2 - Precordial pain Coding Level of Care Code ED Solar Electric Installer for Pk Fwd Exam Comprehensive
[2020-04-19 20:06] LABS: Basophils # 0.1 10^3/uL (0.0-0.1); Basophils % 0.9 %; Eosinophils # 0.2 10^3/uL (0.0-0.8); Eosinophils % 3.1 %; Hematocrit 43.9 % (42.0-52.0); Hemoglobin 14.9 g/dL (11.7-16.6); Lymphocytes # 3.1 10^3/uL (0.8-4.8); Mean Corpuscular HGB Conc 33.9 g/dL (30.0-36.0); Mean Corpuscular Hemoglobin 30.7 pg (28.0-34.0); Mean Corpuscular Volume 90.5 fL (80-94); Mean Platelet Volume 8.9 fL (7.4-10.4); Monocytes # 0.6 10^3/uL (0.2-0.9); Monocytes % 7.6 %; Neutrophils # 3.69 10^3/uL (1.8-7.7); Neutrophils % 47.9 %; Nucleated Red Blood Cells % 0 %; Platelet Count 231 10^3/cmm (130-400); Red Blood Count 4.85 10^6/uL (4.1-5.3); White Blood Count 7.7 10^3/uL (4.0-10.0)
[2020-04-19 20:12] LABS: D Dimer 0.29 ug/mIFEU (0-0.59)
[2020-04-19] MEDS: aspirin 325 mg Tablet PO (20:16)
[2020-04-19 20:20] LABS: Troponin(5th) Baseline 7 ng/L (0-15)
[2020-04-19 20:42] LABS: Alanine Aminotransferase 26 U/L (0-41); Albumin Level 4.3 g/dL (3.5-5.2); Alkaline Phosphatase 73 IU/L (40-130); Aspartate Amino Transferase 18 U/L (0-40); Blood Urea Nitrogen 25 mg/dL (8-23); Calcium 9.3 mg/dL (8.5-10.5); Carbon Dioxide 24 mmol/L (22-29); Chloride 105 mmol/L (98-107); Globulin 2.2 g/dL (1.3-4.6); Glomerular Filtration Rate 135.6 mL/min (90-130); Glucose 101 mg/dL (65-115); NT Pro B Type Natriuretic Pept 65 pg/mL (0-125); Osmolality Calculated 293 mOsm/kg (285-295); Sodium 139 mmol/L (136-145); Total Bilirubin 0.3 mg/dL (0.15-1.2); Total Protein 6.5 g/dL (6.6-8.7)
[2020-04-19 21:35] LABS: Troponin 5 2HR 11.31 ng/L (0-15); Troponin 5 2HR Delta 4.31 ABS# (0-10)
--- NOTE | 2020-04-19 21:40 | ECG_ITS ---
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 Measurements Intervals [place] Rate: 58 P: 18 ND: 222 QRS: 19 QRSD: 115 T: -11 QT: 456 QTc: 449 Interpretive Statements SINUS BRADYCARDIA WITH FIRST DEGREE AV BLOCK MODERATE INTRAVENTRICULAR CONDUCTION DELAY [110+ ms QRS DURATION] Nonspecific T wave changes Compared to ECG 02/05/2020 17:06:18 Sinus rhythm no longer present Electronically Signed On 04-21-2020 6:15:38 ENGINE PILOT by Kari Rivera M.D. [email or web address] regional medical [email or web address] Network Systemskettering health hamilton.[employer]/store/OM/[id number]
--- NOTE | 2020-04-19 23:24 | PM.HP ---
Providers/Chief Complaint Primary Care Provider: Brittany Devi MD Chief Complaint: CP History of Present Illness Myron Clayton is a 65 year old male had a drug-eluting stent placed in the LAD and balloon angioplasty to the diagnol branch 02/15 presented with chest pain. Patient is stating that around evening he started experiencing substernal chest pain which she describing a pressure-like sensation, it lasted for about 1520 minutes and relieved on its own, no recent aggravating factor, no shortness of breath orthopnea PND, he is endorsing radiation of pain towards his jaw. He is stating that when this chest pain initiated it was higher in intensity as compared to the last time when he had stent placement. He came to the hospital for further evaluation Diagnostics in the ER revealed normal CBC, BMP unremarkable troponin however he was bradycardic with hypertensive urgency no confusion shortness of breath or chest pain, at maximum his chest pain is 1/10 EKG unremarkable no ischemic or infarctive changes, sinus bradycardia, first-degree AV block I do not agree with atrial fibrillation machine interpretation At the time my evaluation patient did not endorse any discomfort. His heart rate was fluctuating between 57-65, systolic blood pressure 150 mmHg Review of Systems Const: Denies: fever(s) or chills Eyes: Denies: change in vision ENMT: Denies: throat pain Card: Reports: chest pain; Denies: swelling of feet/ankles, dyspnea on exertion or orthopnea Resp: Denies: dyspnea GI: Denies: abdominal pain : Denies: flank pain Musc: Denies: neck pain Skin/Breast: Denies: rash Neuro: Denies: headache(s) Psych: Denies: anxiety Endo: Denies: polyuria Chad/Lymph: Denies: easy bruising All/Imm: Denies: urticaria Medications/Allergies Home Medications Medication Instructions Recorded Confirmed Last Taken Type aspirin 81 mg tablet,delayed 81 mg PO DAILY #90 tab 03/04/20 03/04/20 Unknown Rx release atorvastatin 40 mg tablet 40 mg PO BEDTIME #90 tab 03/04/20 03/04/20 Unknown Rx lisinopril 2.5 mg tablet 2.5 mg PO DAILY #90 tab 03/04/20 03/04/20 Unknown Rx arginine (L-arginine) 500 mg 500 mg PO DAILY cap 03/12/20 Unknown History capsule cholecalciferol (vitamin D3) 25 25 mcg PO DAILY 03/12/20 Unknown History mcg (1,000 unit) capsule coenzyme Q10 75 mg capsule 75 mg PO DAILY 03/12/20 Unknown History garlic 500 mg capsule 500 mg PO DAILY 03/12/20 Unknown History clopidogrel 75 mg tablet 75 mg PO DAILY #90 tab 04/02/20 Unknown Rx metoprolol tartrate 25 mg tablet 12.5 mg PO BID #90 tab 04/06/20 Unknown Rx Allergies Allergy/AdvReac Type Severity Reaction Status Date / Time No Known Allergies Allergy Verified 03/12/20 13:40 PFSH Acute PFSH: Medical History (Updated 04/20/20 @ 00:14 by Jaiden Ojeda MD) Atypical chest pain Dyslipidemia History of left heart catheterization No significant past medical history Presence of stent in LAD coronary artery Unstable angina Surgical History (Updated 04/20/20 @ 00:14 by Jaiden Ojeda MD) H/O shoulder surgery History of ankle surgery History of tonsillectomy Hx of cataract surgery Family History Father CAD (coronary artery disease) First [place] age 48, at age 61 Diabetes Mother CAD (coronary artery disease) Grandfather CAD (coronary artery disease) Grandmother CAD (coronary artery disease) Diabetes Stroke Denies family history of Clotting disorder Dementia Chronic kidney disease (CKD) Suicide Anesthesia complication Bleeding disorder Lung disease Cancer Social History Smoking and tobacco status: former smoker Alcohol intake: never Vitals/I&O/Wt Last Vital Signs Temp 98.3 F 04/19/20 19:35 Pulse 68 04/19/20 22:46 Resp 16 04/19/20 22:46 BP 162/106 04/19/20 22:46 Pulse Ox 95 04/19/20 22:46 Weight last 48 hrs Weight 98.43 kg Physical Exam Narrative: EXAM NARRATIVE: Pleasant elderly male who appears younger than stated age Well-hydrated well-built S1, S2 sinus bradycardia no signs of heart failure or murmur Abdomen soft nontender bowel sound present Neurologically intact no focal deficit Appropriate mood and affect No acute respite distress Abdomen soft nontender bowel sound present No joint swelling or skin cellulitis noted EOMI, PERRLA Data : 04/19/20 19:47 04/19/20 19:47 A&P Assessment and plan (1) Sinus bradycardia: First-degree AV block noted on EKG no ischemic or infarctive changes no active chest pain, D-dimer unremarkable, he is not complaining of any shortness of breath, did not notice any confusion or hypotension For now I will check TSH and magnesium level hold metoprolol and monitor on telemetry floor Status: Acute (2) Unstable angina: Chest pain-free EKG without ischemic or infarctive changes, troponin unremarkable, if he becomes symptomatic my threshold to activate cardiology will be low however no current signs of ischemia Continue aspirin, Plavix atorvastatin lisinopril and hold metoprolol for now Status: Acute Additional A&P Information Cardiac diet Lovenox DVT prophylaxis Full code Attestations Medical Necessity Statement*: Anticipating discharge in less than 48 hours currently overnight monitoring because of bradycardia and recent LAD stent placement, presented with unstable angina Time Spent in Patient Care: (>than 50% of time spent in counselling and/or direct pt care on unit). 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
[2020-04-20] VITALS (16 sets, daily range): BP systolic 134–174; BP diastolic 73–106; PULSE 49–76; RESP 14–22; TEMP 36.6–37.1; O2SAT 91–98
[2020-04-20] MEDS: enoxaparin 40 mg/0.4 mL Syringe SUBCUT (01:23)
--- NOTE | 2020-04-20 01:40 | ECG_ITS ---
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 Measurements Intervals [place] Rate: 51 P: IN: QRS: 55 QRSD: 118 T: -10 QT: 465 QTc: 430 Interpretive Statements SINUS BRADYCARDIA MODERATE INTRAVENTRICULAR CONDUCTION DELAY [110+ ms QRS DURATION] NON SPECIFIC T WAVE ABNORMALITY Compared to ECG 04/19/2020 21:32:06 Sinus bradycardia no longer present First degree AV block no longer present Electronically Signed On 04-21-2020 6:13:24 SKILLED LABORER by Kari Rivera M.D. [id number]
[2020-04-20 01:42] LABS: Thyroid Stimulating Hormone 2.13 uIU/mL (0.27-4.20)
[2020-04-20 06:12] LABS: Troponin 5 6HR 8.92 ng/L (0-15)
[2020-04-20 07:27] LABS: Troponin 5 6HR Delta 1.92 ng/L (0-12)
--- NOTE | 2020-04-20 08:07 | ECG_ITS ---
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 Measurements Intervals [place] Rate: 68 P: 59 AL: 217 QRS: 6 QRSD: 121 T: -8 QT: 412 QTc: 441 Interpretive Statements SINUS RHYTHM WITH FIRST DEGREE AV BLOCK MODERATE INTRAVENTRICULAR CONDUCTION DELAY [110+ ms QRS DURATION] Compared to ECG 04/20/2020 03:35:05 First degree AV block now present Atrial fibrillation no longer present Electronically Signed On 04-20-2020 12:39:21 HOT PLATE PLYWOOD PRESS LABORER by Kari Rivera M.D. [id number]
--- NOTE | 2020-04-20 08:23 | PC.NURSE ---
Pt had an event this morning where he experienced some chest pain after exertion,
--- NOTE | 2020-04-20 08:25 | PC.NURSE ---
Patient experienced chest pain this morning -a 5/10 that felt like pressure, or a squeezing sensation. Nurse obtained an ECG per protocol and the patients chest pain subsided with rest. Doctor notified and nurse will continue to monitor.
[2020-04-20] MEDS: nitroglycerin 0.4 mg sublingual Tablet SUBLINGUAL ×2 (08:40→17:56)
[2020-04-20] MEDS: aspirin 81 mg EC Tablet PO (09:15)
[2020-04-20] MEDS: clopidogrel 75 mg Tablet PO (09:15)
[2020-04-20] MEDS: lisinopril 2.5 mg Tablet PO (09:15)
--- NOTE | 2020-04-20 09:30 | PC.CHAP ---
Pastoral Care Encounter/Spiritual Assessment Type of Contact [] Declined chicken hanger visit [] Patient/Family/Request visit [] Outpatient visit [] Follow-up visit [] Physician referral [] Code/Alert [x] Routine visit [] Staff referral [] Actively dying [] Patient sleeping [] Family support [] [] Out of room [] Palliative care [] [] Receiving care in room [] Pre-surgical visit [] Trauma [] Long length of stay [] ICU visit [] Other: Relational/Emotional Strength [] Patient feels connected with others/family/visitors/staff [] Distress [] Loneliness/isolation [] Abandonment Spirituality of Patient [x] Person of Farhana [] Attends Sabianist of their Farhana [] Believes in Prayer [] Reads Bible or Congregational materials [] There are Spiritual issues to be addressed Bit And Shank Department Supervisor Interventions [x] Prayer [x] Active listening [x] Non-anxious presence [x] Spiritual/emotional support [] Crisis/trauma care [] Spiritual counseling [] Bereavement support [] Provided bereavement packet [] Provided Bible/devotional materials [] Provided toy/stuffed animal, coloring book to patient or family member [] Provided Communion [] Anointing/[place] [] Salvation [x] Completed spiritual assessment [] Other: Impact on Illness or Injury [] Angry [] Fearful [] Anxious [] Often cries [] Exhaustion [] Unable to work [] Unable to attend mormonism [] Unable to walk/stand [] Unable to read [] Unable to drive [] Unable to eat/drink [] Unable to sleep [] Unable to be with family [] Patient intubated [] Other: Summary just arrived... prayed for peace of mind... Time spent with patient 10 min
--- NOTE | 2020-04-20 13:38 | PM.CONSULT ---
Providers/Reason For Consult Consulting Physican/Specialty*: Rashaad Cintron MD/Cardiology Reason for Consult*: Unstable angina Requesting Physcian: Dr Nielsen Attending Physician: Iveth Nielsen MD Primary Care Provider: Brittany Devi MD History of Present Illness History of Present Illness 65 year old male with PMH of dyslipidemia and Coronary artery disease s/p PCI of mid LAD and balloon angioplasty of Diagonal artery. He presented with severe substernal chest pain that felt like pressure and lasted 15-20minutes. Pain did radiate to the jaw. On presentation to hospital, his EKG did not show ischemic changes, troponin did not trend up significant. He had recurrent chest pain symptoms during the hospital stay requiring multiple nitros. Review of Systems Const: Denies: fever(s) or chills Eyes: Denies: change in vision ENMT: Denies: throat pain Card: Reports: chest pain; Denies: swelling of feet/ankles, dyspnea on exertion or orthopnea Resp: Denies: dyspnea GI: Denies: abdominal pain : Denies: flank pain Musc: Denies: neck pain Skin/Breast: Denies: rash Neuro: Denies: headache(s) Psych: Denies: anxiety Endo: Denies: polyuria Chad/Lymph: Denies: easy bruising All/Imm: Denies: urticaria Meds/Allergies Home Medications and Allergies Home Medications Medication Instructions Recorded Confirmed Last Taken Type aspirin 81 mg tablet,delayed 81 mg PO DAILY #90 tab 03/04/20 04/20/20 Unknown Rx release atorvastatin 40 mg tablet 40 mg PO BEDTIME #90 tab 03/04/20 04/20/20 Unknown Rx lisinopril 2.5 mg tablet 2.5 mg PO DAILY #90 tab 03/04/20 04/20/20 Unknown Rx cholecalciferol (vitamin D3) 25 25 mcg PO DAILY 03/12/20 04/20/20 Unknown History mcg (1,000 unit) capsule coenzyme Q10 75 mg capsule 75 mg PO DAILY 03/12/20 04/20/20 Unknown History garlic 500 mg capsule 500 mg PO DAILY@06 03/12/20 04/20/20 Unknown History clopidogrel 75 mg tablet 75 mg PO DAILY #90 tab 04/02/20 04/20/20 Unknown Rx metoprolol tartrate 25 mg tablet 12.5 mg PO BID #90 tab 04/06/20 04/20/20 Unknown Rx Allergies Allergy/AdvReac Type Severity Reaction Status Date / Time No Known Allergies Allergy Verified 03/12/20 13:40 Current Medications Current Medications Generic Name Dose Route Start Last Admin Trade Name Freq PRN Reason Stop Dose Admin Aspirin 81 mg 04/20/20 09:00 04/20/20 09:15 Aspirin 81 Mg Ec Tablet PO 81 mg DAILY ROBERTO Administration Clopidogrel Bisulfate 75 mg 04/20/20 09:00 04/20/20 09:15 Clopidogrel 75 Mg Tablet PO 75 mg DAILY ROBERTO Administration Enoxaparin Sodium 40 mg 04/20/20 01:01 04/20/20 01:23 Enoxaparin 40 Mg/0.4 Ml Syringe SUBCUT 40 mg Q24H ROBERTO Administration Lisinopril 2.5 mg 04/20/20 09:00 04/20/20 09:15 Lisinopril 2.5 Mg Tablet PO 2.5 mg DAILY ROBERTO Administration Nitroglycerin 0.4 mg 04/20/20 08:10 04/20/20 08:40 Nitroglycerin 0.4 Mg Sublingual Tablet SUBLINGUAL 1 tab Q5M PRN Administration CHEST PAIN Non-Formulary Medication 75 mg 04/20/20 09:00 04/20/20 09:22 Coenzyme Q10 [Ultra Coq10] PO Not Given DAILY ROBERTO PFSH Acute PFSH: Medical History Atypical chest pain Dyslipidemia History of left heart catheterization No significant past medical history Presence of stent in LAD coronary artery Unstable angina Surgical History H/O shoulder surgery History of ankle surgery History of tonsillectomy Hx of cataract surgery Family History Father CAD (coronary artery disease) First [place] age 48, at age 61 Diabetes Mother CAD (coronary artery disease) Grandfather CAD (coronary artery disease) Grandmother CAD (coronary artery disease) Diabetes Stroke Denies family history of Clotting disorder Dementia Chronic kidney disease (CKD) Suicide Anesthesia complication Bleeding disorder Lung disease Cancer Social History Smoking and tobacco status: former smoker Alcohol intake: never Vitals/I&O/Wt Last Vital Signs Temp 98.6 F 04/20/20 11:04 Pulse 59 L 04/20/20 11:04 Resp 15 04/20/20 11:04 BP 134/82 04/20/20 11:04 Pulse Ox 96 04/20/20 11:04 04/19/20 04/20/20 04/20/20 22:59 06:59 14:59 Intake Total 200 / 200 480 / 480 Balance 200 / 200 480 / 480 Weight last 48 hrs Weight 217 lb Physical Exam Narrative: EXAM NARRATIVE: GENERAL: Patient is alert, awake and oriented x3. [] NECK: No jugular vein distension. [] HEENT: No cyanosis. No icterus. No pallor. [] HEART: Regular S1 and S2. No murmur, rub or gallop. [] LUNGS: Clear to auscultate bilaterally. [] ABDOMEN: Soft, nontender and nondistended. Positive bowel sounds. No guarding, rebound or tenderness. [] CENTRAL NERVOUS SYSTEM: Grossly nonfocal. [] EXTREMITIES: Lower extremities with no edema bilaterally. Pulses palpable in the lower extremities, both dorsalis pedis and posterior tibial. [] A&P Assessment and plan (1) Unstable angina: Status: Acute (2) Atherosclerotic heart disease of [place] coronary artery without angina pectoris: Status: Acute Qualifiers: [place] vs. transplanted heart: [place] heart Qualified Code(s): I25.10 - Atherosclerotic heart disease of [place] coronary artery without angina pectoris (3) Dyslipidemia: Status: Acute (4) Hypertension: Status: Acute Qualifiers: Hypertension type: essential hypertension Qualified Code(s): I10 - Essential (primary) hypertension Patient had recent PCI to LAD and balloon angioplasty of diagonal artery. He has presented again with symptoms concerning for unstable angina. Given his recurrent chest pain that is typical, we will proceed with coronary angiography with possible percutaneous coronary intervention. N.p.o. past midnight. If patient develops continued chest pain, repeat EKG and put patient on nitro drip. Continue aspirin and Plavix. High intensity statin therapy. Thank you for involving us with care of this patient. We will continue to follow. Please call with questions Coding Level of Care Code Acute Range Aid for Pk Sargent Diagnoses Unstable angina I20.0 Atherosclerotic heart disease of [place] coronary artery without angina pectoris I25.10 [place] vs. transplanted heart: [place] heart Dyslipidemia E78.5 Hypertension I10 Hypertension type: essential hypertension
--- NOTE | 2020-04-20 16:23 | PM.PN ---
Subjective Subjective: Interval history: Continues to complain of chest pain this morning with minimal exertion, subsided with nitroglycerin. Troponin series negative. Medications: Reviewed: Yes Vitals/I&O/Wt Last Vital Signs Temp 98.6 F 04/20/20 11:04 Pulse 65 04/20/20 16:00 Resp 14 04/20/20 16:00 BP 141/87 04/20/20 16:00 Pulse Ox 95 04/20/20 16:00 04/20/20 04/20/20 04/20/20 06:59 14:59 22:59 Intake Total 200 / 200 480 / 480 Balance 200 / 200 480 / 480 Weight last 48 hrs Weight 98.43 kg Physical Exam Narrative: EXAM NARRATIVE: GEN: Awake, alert and oriented, no acute distress CVS: S1S2 N RS: CTA B/L Abd: Soft, nt/nd , bs+ DOWNSTAIRS MAID: no focal neuro deficits Data : 04/19/20 19:47 04/19/20 19:47 A&P Assessment and plan (1) Sinus bradycardia: First-degree AV block noted on EKG no ischemic or infarctive changes no active chest pain, D-dimer unremarkable, he is not complaining of any shortness of breath, did not notice any confusion or hypotension. TSH within normal range, electrolytes normal Status: Acute (2) Unstable angina: Chest pain-free EKG without ischemic or infarctive changes, troponin unremarkable, Cardiology consult given recent PCI and ongoing chest pain. Status: Acute Additional A&P Information Cardiac diet Lovenox DVT prophylaxis Full code Attestations Medical Necessity Statement*: Ongoing chest pain in a patient with recent PCI, cardiology evaluation today. Coding Level of Care Code Acute Driver License Reviewing Officer for Pk Sargent Diagnoses Sinus bradycardia R00.1 Unstable angina I20.0
--- NOTE | 2020-04-20 16:44 | PC.NURSE ---
Reinforced information about angiogram procedure with patient. Patient signed consent and had no questions or concerns about the procedure.
[2020-04-20] MEDS: atorvastatin 40 mg Tablet PO (20:34)
[2020-04-21] VITALS (23 sets, daily range): BP systolic 113–150; BP diastolic 72–113; PULSE 56–91; RESP 13–29; TEMP 36.6–37.2; O2SAT 93–97
[2020-04-21] MEDS: sodium chloride 0.9% 1,000 ML 50 ML IV (05:22)
[2020-04-21] MEDS: lanolin oint 7 gm 1 APPLIC TOPICAL (05:42)
--- NOTE | 2020-04-21 06:46 | XACV_ITS ---
Exam Room: [facility] Ht: 178 cm Wt: 98 kg BSA: 2.23 m2 Gender: Male : 1955 Any Known Allergies: No known allergies Exam Priority: Routine Procedure(s): Procedure Description: Diagnostic procedure Procedure Description: PCI procedure Procedure Description: Drug Eluting Coronary Stent Procedure Description: PTCA Procedure Description: Miscellaneous Procedure Description: ACT Procedure Description: Coronary Angiography Procedure Description: Pressure Wire Diagnostic Cath Status: Urgent Diagnostic Findings * LM has minor luminal irregularities. * CX has mid vessel mild 20% stenosis. It gives rise to 2 OM branches that are free of significant disease.. * RCA has mild luminal irregularities.. * LAD has proximal vessel moderate 60 to 70% stenosis. This is right before the prior stent.Proximal Left Anterior Descending Coronary Artery to Mid Left Anterior Descending Coronary Artery: Moderate 70% stenosis, LA: 3 flow. It gives rise to moderate-sized second diagonal artery. It has ostial to mid diagonal artery 95% stenosis. * Second * diagonal Coronary Artery: Severe 95% stenosis, LA:2 flow. * Coronary angiography shows right dominance. PCI Status: Urgent PCI Indication: Other Interventional Findings * INDICATION: Unstable angina. * Procedure detail: We engaged left main artery using XB 3.5 guide catheter. IV heparin was used to maintain an ACT above 250 seconds. We initially performed FFR of proximal LAD stenosis which was nonischemic with a value of 0.92. A 0.014 run-through guidewire was used to cross the second diagonal artery stenosis. We predilated the stenosis with 2.25 x 8 mm semicompliant balloon. This was followed by placement of 2.25 x 18 mm resolute [place] drug-eluting stent. At this time he noted proximal LAD had some haziness at the origin of second diagonal artery and significant stenosis likely from pinching from diagonal artery stent. We placed 3.0x 15 mm resolute [place] stent overlapping with the prior LAD stent. Post dilation of the stent was performed with a 3.5 x 6 mm NC balloon. At this time final angiogram was performed that showed excellent stent expansion, no residual stenosis and LA-3 flow. Guidewire and guide catheter were removed. Hemostasis was obtained with TR band. Patient left the Delivery Merchandiser in a stable condition.. * Proximal Left Anterior Descending Coronary Artery to Mid Left Anterior Descending Coronary Artery: 70% stenosis treated with MDT R KATARINA 3.0X15 ABRAHAN and MDT NC EUPHORA RX [id number] BALLOON. 0% residual stenosis, LA: 3 flow. * 1st Diagonal Coronary Artery: 95% stenosis treated with AB TREK 2.25X8 RX BALLOON and MDT R KATARINA 2.25X18 ABRAHAN. 0% residual stenosis, LA: 3 flow. Conclusions 1. Severe second diagonal artery stenosis Moderate to severe proximal LAD stenosis(FFR was non ischemic however after diagonal artery stenting, LAD had haziness and pinching of the vessel leading to need for PCI in the LAD) . 2. Proximal Left Anterior Descending Coronary Artery to Mid Left Anterior Descending Coronary Artery was treated with Drug Eluting Stent and Balloon. 3. 1st Diagonal Coronary Artery was treated with Balloon and Drug Eluting Stent. Recommendations * Aspirin and Plavix for atleast 1 year. * High intensity statin therapy. * Lisinopril and beta reddy therapy. Interventional RX Recommendation: PCI w/o planned CABG Diagnostic RX Recommendation: PCI w/o planned CABG Anticoagulation: Heparin Clinical Evaluation EBL: 5mL-10mL Procedural Details Procedure Consent Obtained. Pre-Procedure Time Out. Identified patient by full name and date of as verbalized by the patient/guarantor. Does the consent match the physician's order: Yes. Accurate & Complete Informed Consent: Yes. Inpatient/Outpatient History & Physical on Chart: Yes. If H&P is completed, is and addenduem needed: No. Visualize and Verify Site with Patient/Guarantor: N/A. Relevant Radiology Images available: Yes. Pre-op teaching completed and patient verbalized understanding. The risks, benefits, and alternatives of sedation and/or procedure were discussed by physician. The patient agrees to continue. Procedure started. Correct patient, site and procedure confirmed by cath team. Current diagnosis: Chest Pain. PERRLA. Strong, equal hand dual hose cementer bilaterally. Lungs clear x 5 lobes. IV Site on Arrival: 20 gauge in the left anticubital. IV Fluids: 0.9% NaCl at KVO. 0 mL infused prior to veterinary laboratory technician. Pre Procedural Pulses: bilateral dorsalis pedis was 2+. Pre Procedural Pulses: bilateral posterior tibial was 2+. Pre Procedural Pulses: bilateral radial was 3+. Oxygen started at 2liters/min via nasal canula. bilateral groins was prepped with chloroprep then draped in the usual sterile fashion. right radial was prepped with chloroprep then draped in the usual sterile fashion. Physician notified. Baseline sample Acquired. HR: 59 BPM. Physician arrived. Equipment: 6F - Radial. ACIST Manifold Kit Model BT 2000. Cardiac Cath Pack. Heparinized Saline (2 units/mL), 1000 mL bag. Physician scrubbed in. Immediate Pre-Procedure Time Out. Correct Patient: Yes; Correct Procedure: Yes; Correct Site: Yes; Correct Patient Position: Yes; Correct Supplies: Yes; Dried Flammable Prep: Yes; Blood Products Available: No;. Lidocaine 1% infiltrated to the right radial. Arterial access obtained. A 6 grenadian TIG catheter in over wire. Multiple views taken of left coronary artery. Catheter redirected to the RCA. Multiple views taken of right coronary artery. Catheter out. 6 grenadian XB 3.5 guide catheter was inserted over the wire. Runthrough guidewire was advanced through the guide catheter to lesion in the mid LAD. Runthrough wire out. FFR wire inserted into the LAD. ACT drawn. Results 305 seconds. Therapeutic limits - pre-heparin administration 90-150 seconds and monitoring heparin during a vascular procedure >250 seconds. An FFR value of 0.92 was obtained for a lesion located at Prox LAD. FFR wire out. Runthrough guidewire was advanced through the guide catheter. Inflation number : 1 A AB TREK 2.25X8 RX BALLOON was prepped and advanced across the 1st Diag , then inflated to 8 DARIUS for 0:19 seconds. Inflation number: 2 The AB TREK 2.25X8 RX BALLOON was reinflated across the 1st Diag, to 12 DARIUS for 0:22 seconds. Inflation number: 3 The AB TREK 2.25X8 RX BALLOON was reinflated across the 1st Diag, to 10 DARIUS for 0:10 seconds. Inflation number: 4 The AB TREK 2.25X8 RX BALLOON was reinflated across the 1st Diag, to 12 DARIUS for 0:14 seconds. Balloon out. Inflation Number : 5 A MDT R KATARINA 2.25X18 ABRAHAN -Lot Number# [id number] was prepped and advanced across the 1st Diag. The stent was deployed at 14 DARIUS for 0:30 seconds. Stent expiration date: 05/19/2021. Results checked. FFR wire inserted. FFR wire out. Inflation Number : 1 A MDT R KATARINA 3.0X15 ABRAHAN -Lot Number# [id number] was prepped and advanced across the Prox LAD. The stent was deployed at 12 DARIUS for 0:26 seconds. Stent expiration date: 12/23/2021. Stent balloon out over wire. Runthrough wire inserted into the guide catheter. Runthrough wire out. Inflation number : 2 A MDT NC EUPHORA RX [id number] BALLOON was prepped and advanced across the Prox LAD , then inflated to 12 DARIUS for 0:15 seconds. Inflation number: 3 The MDT NC EUPHORA RX [id number] BALLOON was reinflated across the Prox LAD, to 16 DARIUS for 0:12 seconds. Inflation number: 4 The MDT NC EUPHORA RX [id number] BALLOON was reinflated across the Prox LAD, to 16 DARIUS for 0:13 seconds. Inflation number: 5 The MDT NC EUPHORA RX [id number] BALLOON was reinflated across the Prox LAD, to 14 DARIUS for 0:27 seconds. Balloon out. Wire out. Guide catheter out. ACT drawn. Results 283 seconds. Therapeutic limits - pre-heparin administration 90-150 seconds and monitoring heparin during a vascular procedure >250 seconds. TR band placed. Hemostasis obtained. A TR Band was successful obtaining hemostatsis at the Right Radial artery insertion site. PERRLA. Strong, equal hand dual hose cementer bilaterally. No VTE prophylaxis required. Medication's Wasted: Lidocaine 1% = 18 mL. Medication's Wasted: Nitro = 49.8 mg. Medication's Wasted: Heparin = 2000 units mL. Medication's Wasted: Other = Adenosine 62 mg. Total IV fluids: 107 mL. Contrast type used: Visipaque 320 mgI/mL, 500 mL bottle. PCI Indication: New Onset Angina. [facility] Clinical Fraility Score: 3: Managing Well. Delivery Merchandiser Indications: New Onset Angina. Chest Pain Symptom Assessment: Typical Angina Symptoms. Cardiovascular Instability: No. Post-op diagnosis: Multivessel CAD. Complications: None. Estimated blood loss: 5mL-10mL. Procedure completed. Patient transferred by wheelchair to CPRU. Vital chart was stopped. Access Site Site: Right Radial artery Sheath Size: 6 Fr Hemostasis Method: TR Band Hemostasis Success: Successful Procedure Medications Start: 8:26 AM Stop: 8:26 AM Medication: Versed Amount: 1 mg Route: I.V. Start: 8:27 AM Stop: 8:27 AM Medication: Fentanyl Amount: 50 mcg Route: I.V. Start: 8:45 AM Stop: 8:45 AM Medication: Versed Amount: 1 mg Route: I.V. Start: 8:46 AM Stop: 8:46 AM Medication: Nitrogylcerin Amount: 200 mcg Route: I.A. Start: 8:47 AM Stop: 8:47 AM Medication: Heparin Amount: 5000 units Route: I.V. Start: 8:52 AM Stop: 8:52 AM Medication: Versed Amount: 1 mg Route: I.V. Start: 9:00 AM Stop: 9:00 AM Medication: Heparin Amount: 4000 units Route: I.V. Start: 9:20 AM Stop: 9:20 AM Medication: Versed Amount: 1 mg Route: I.V. Start: 9:53 AM Stop: 9:53 AM Medication: Plavix Amount: 300 mg Route: P.O. I, the attending physician, have reviewed and verified all procedure medications. Yes, all medications given per verbal order History/Risk Factors Hypertension: No Dyslipidemia: Yes Peripheral Arterial Disease (PAD): No Myocardial Infarction (GA): No Obesity: No Renal Disease: No Prior Interventions PCI: Yes CABG: No Valve Surgery: No Report Signatures Finalized by Rashaad Almaraz MD on 05/03/2020 12:36 PM
--- NOTE | 2020-04-21 07:00 | PM.PN ---
Subjective Subjective: Interval history: Planned for cardiac cath today, no acute interim events Medications: Reviewed: Yes Vitals/I&O/Wt Last Vital Signs Temp 98.1 F 04/21/20 14:57 Pulse 58 L 04/21/20 14:57 Resp 17 04/21/20 14:57 BP 137/80 04/21/20 14:57 Pulse Ox 93 04/21/20 14:57 Weight last 48 hrs Weight 98.43 kg Physical Exam Narrative: EXAM NARRATIVE: GEN: Awake, alert and oriented, no acute distress CVS: S1S2 N RS: CTA B/L Abd: Soft, nt/nd , bs+ MUSIC GRAPHER: no focal neuro deficits Data : 04/19/20 19:47 04/19/20 19:47 A&P Assessment and plan (1) Sinus bradycardia: First-degree AV block noted on EKG no ischemic or infarctive changes no active chest pain, D-dimer unremarkable TSH within normal range, electrolytes normal Status: Acute (2) Unstable angina: Chest pain-free EKG without ischemic or infarctive changes, troponin unremarkable, Cardiology consult given recent PCI and ongoing chest pain. Planned for cardiac cath today Status: Acute Additional A&P Information Cardiac diet Lovenox DVT prophylaxis Full code Attestations Medical Necessity Statement*: planned for cardiac cath today Coding Level of Care Code Acute Medical Numerical Control Operator for Pk Sargent Diagnoses Sinus bradycardia R00.1 Unstable angina I20.0
[2020-04-21] MEDS: diphenhydrAMINE 50 mg Capsule PO (07:42)
--- NOTE | 2020-04-21 08:34 | W.PM.OPSUD ---
Surgery/Procedure H&P Update DATE OF PROCEDURE: April 21, 2020 DATE H&P PERFORMED: 04/20/20 H&P UPDATE INFORMATION: I have reviewed H&P completed within last 30 days and I have examined patient prior to procedure PREOP DIAGNOSIS: Unstable angina PRIMARY INDICATION FOR PROCEDURE: Unstable angina PLANNED PROCEDURE: Operation Date: 04/21/20 08:30 Proposed Procedures p left Cardiac Catheterization 08536(Left) - Rashaad Almaraz M.D Possible percutaneous coronary intervention PATIENT REASSESSED PRIOR TO SEDATION, WITH NO CHANGE NOTED: Yes PHYSICAL EXAM: alert and oriented x 3 AIRWAY EVAL/ANESTHESIA PLAN: ASA III, Risks, benefits & alternatives of sedation and/or procedure discussed and Patient agrees to continue as planned
--- NOTE | 2020-04-21 10:12 | PC.CHAP ---
Pastoral Care Encounter/Spiritual Assessment Type of Contact [] Declined cement boat and barge loader visit [] Patient/Family/Request visit [] Outpatient visit [] Follow-up visit [] Physician referral [] Code/Alert X[] Routine visit [] Staff referral [] Actively dying [] Patient sleeping [] Family support [] [X] Out of room [] Palliative care [] [] Receiving care in room [] Pre-surgical visit [] Trauma [] Long length of stay [] ICU visit [] Other: Relational/Emotional Strength [] Patient feels connected with others/family/visitors/staff [] Distress [] Loneliness/isolation [] Abandonment Spirituality of Patient [] Person of Farhana [] Attends Rastafari of their Farhana [] Believes in Prayer [] Reads Bible or Gnosticism materials [] There are Spiritual issues to be addressed Shipping Coordinator Interventions [] Prayer [] Active listening [] Non-anxious presence [] Spiritual/emotional support [] Crisis/trauma care [] Spiritual counseling [] Bereavement support [] Provided bereavement packet [] Provided Bible/devotional materials [] Provided toy/stuffed animal, coloring book to patient or family member [] Provided Communion [] Anointing/[place] [] Salvation [] Completed spiritual assessment [] Other: Impact on Illness or Injury [] Angry [] Fearful [] Anxious [] Often cries [] Exhaustion [] Unable to work [] Unable to attend gnosticist [] Unable to walk/stand [] Unable to read [] Unable to drive [] Unable to eat/drink [] Unable to sleep [] Unable to be with family [] Patient intubated [] Other: Summary Time spent with patient
--- NOTE | 2020-04-21 10:33 | PC.NURSE ---
recovery received pt from laboratory worker post pci. tr band in place on right wrist, no bleeding or hematoma noted. pt complains of no pain, alert and oriented x3. pt placed on vitals monitor and will be monitored per protocol. pt educated about restrictions of right wrist and verbalized understanding. pt will return to 254-1 1 hr after tr band removal is successful. pt asked for his phone and ear buds during his time in CPRU. Daniel from admission desk brought them to him from his room. pt received them with thanks.
[2020-04-21] MEDS: aspirin 81 mg EC Tablet PO (10:55)
--- NOTE | 2020-04-21 17:25 | P.PN_ITS ---
Subjective Subjective: Interval history: Patient underwent successful percutaneous coronary intervention of proximal to mid LAD and diagonal artery today with ABRAHAN x2. He is doing well. Denies any complaints of chest pain, shortness of breath or palpitations. Vitals/I&O/Wt Last Vital Signs Temp 98.1 F 04/21/20 14:57 Pulse 58 L 04/21/20 14:57 Resp 17 04/21/20 14:57 BP 137/80 04/21/20 14:57 Pulse Ox 93 04/21/20 14:57 Weight last 48 hrs Weight 217 lb Physical Exam Narrative: EXAM NARRATIVE: GENERAL: Patient is alert, awake and oriented x3. [] NECK: No jugular vein distension. [] HEENT: No cyanosis. No icterus. No pallor. [] HEART: Regular S1 and S2. No murmur, rub or gallop. [] LUNGS: Clear to auscultate bilaterally. [] ABDOMEN: Soft, nontender and nondistended. Positive bowel sounds. No guarding, rebound or tenderness. [] CENTRAL NERVOUS SYSTEM: Grossly nonfocal. [] EXTREMITIES: Lower extremities with no edema bilaterally. Pulses palpable in the lower extremities, both dorsalis pedis and posterior tibial. 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 transplanted heart: [place] heart Qualified Code(s): I25.10 - Atherosclerotic heart disease of [place] coronary artery without angina pectoris (3) Dyslipidemia: Status: Acute (4) Hypertension: Status: Acute Qualifiers: Hypertension type: essential hypertension Qualified Code(s): I10 - Essential (primary) hypertension Patient underwent successful percutaneous coronary intervention of diagonal artery and proximal to mid LAD with ABRAHAN x2 today. Continue aspirin and Plavix. High intensity statin therapy. Continue lisinopril. Thank you for involving us with care of this patient. We will continue to follow. Please call with questions Attestations Medical Necessity Statement*: Care expected to cross 2 midnights. Coding Level of Care Code Acute Foreign Service Officer for Pk Sargent Diagnoses Unstable angina I20.0 Atherosclerotic heart disease of [place] coronary artery without angina pectoris I25.10 [place] vs. transplanted heart: [place] heart Dyslipidemia E78.5 Hypertension I10 Hypertension type: essential hypertension
[2020-04-21] MEDS: atorvastatin 40 mg Tablet PO (21:57)
[2020-04-22 05:00] VITALS: BP 136/70; PULSE 78; RESP 18; TEMP 37.1; O2SAT 95
[2020-04-22 06:00] VITALS: PULSE 66
[2020-04-22 07:47] VITALS: BP 125/73; PULSE 60; RESP 16; TEMP 36.8; O2SAT 95
[2020-04-22] MEDS: clopidogrel 75 mg Tablet PO (08:12)
[2020-04-22] MEDS: aspirin 81 mg EC Tablet PO (08:12)
[2020-04-22] MEDS: lisinopril 2.5 mg Tablet PO (08:12)
--- NOTE | 2020-04-22 09:37 | PM.PN ---
Subjective Subjective: Interval history: Patient is s/p PCI to proximal to mid LAD and diagonal artery. He is doing well. Denies any complaints of chest pain, shortness of breath or palpitations. Radial access site is normal. Vitals/I&O/Wt Last Vital Signs Temp 98.2 F 04/22/20 07:47 Pulse 60 04/22/20 07:47 Resp 16 04/22/20 07:47 BP 125/73 04/22/20 07:47 Pulse Ox 95 04/22/20 07:47 04/21/20 04/22/20 04/22/20 22:59 06:59 14:59 Intake Total 660 / 660 250 / 910 1240 / 1240 Balance 660 / 660 250 / 910 1240 / 1240 Physical Exam Narrative: EXAM NARRATIVE: GENERAL: Patient is alert, awake and oriented x3. [] NECK: No jugular vein distension. [] HEENT: No cyanosis. No icterus. No pallor. [] HEART: Regular S1 and S2. No murmur, rub or gallop. [] LUNGS: Clear to auscultate bilaterally. [] ABDOMEN: Soft, nontender and nondistended. Positive bowel sounds. No guarding, rebound or tenderness. [] CENTRAL NERVOUS SYSTEM: Grossly nonfocal. [] EXTREMITIES: Lower extremities with no edema bilaterally. Pulses palpable in the lower extremities, both dorsalis pedis and posterior tibial. [] Data : 04/19/20 19:47 04/19/20 19:47 A&P Assessment and plan (1) Unstable angina: Status: Acute (2) Atherosclerotic heart disease of [place] coronary artery without angina pectoris: Status: Acute Qualifiers: [place] vs. transplanted heart: [place] heart Qualified Code(s): I25.10 - Atherosclerotic heart disease of [place] coronary artery without angina pectoris (3) Dyslipidemia: Status: Acute (4) Hypertension: Status: Acute Qualifiers: Hypertension type: essential hypertension Qualified Code(s): I10 - Essential (primary) hypertension Patient underwent successful percutaneous coronary intervention of diagonal artery and proximal to mid LAD with ABRAHAN x2 yesterday Continue aspirin and Plavix. High intensity statin therapy. Continue lisinopril. Patient is ready to be discharged from cardiology standpoint. Follow-up with Dr. Fatima. Thank you for involving us with care of this patient. Please call with questions Attestations Medical Necessity Statement*: Care expected to cross 2 midnights. Coding Level of Care Code Acute Sql Data Architect for Chg Fwd Diagnoses Unstable angina I20.0 Atherosclerotic heart disease of [place] coronary artery without angina pectoris I25.10 [place] vs. transplanted heart: [place] heart Dyslipidemia E78.5 Hypertension I10 Hypertension type: essential hypertension
[2020-04-22 10:02] LABS: Alanine Aminotransferase 28 U/L (0-41); Albumin Level 4.1 g/dL (3.5-5.2); Alkaline Phosphatase 66 IU/L (40-130); Anion Gap 10.8 (5-19); Aspartate Amino Transferase 19 U/L (0-40); Blood Urea Nitrogen 15 mg/dL (8-23); Calcium 9.3 mg/dL (8.5-10.5); Carbon Dioxide 29 mmol/L (22-29); Chloride 103 mmol/L (98-107); Globulin 2.4 g/dL (1.3-4.6); Glomerular Filtration Rate 113.5 mL/min (90-130); Glucose 91 mg/dL (65-115); Osmolality Calculated 288 mOsm/kg (285-295); Potassium 3.8 mmol/L (3.5-5.1); Sodium 139 mmol/L (136-145); Total Bilirubin 0.5 mg/dL (0.15-1.2); Total Protein 6.5 g/dL (6.6-8.7)
--- NOTE | 2020-04-22 10:04 | PM.DCS ---
Discharge Providers Date of Admission: 04/20/20 00:55 Date of Discharge: April 22, 2020 Attending Provider at Admission: Jaiden Ojeda MD Attending Provider at Discharge: Iveth Nielsen MD Primary Care Provider: Brittany Devi MD Diagnoses at Discharge Discharge Diagnosis (1) Unstable angina: Status: Acute (2) Atherosclerotic heart disease of [place] coronary artery without angina pectoris: Status: Acute Qualifiers: [place] vs. transplanted heart: [place] heart Qualified Code(s): I25.10 - Atherosclerotic heart disease of [place] coronary artery without angina pectoris (3) Dyslipidemia: Status: Acute (4) Hypertension: Status: Acute Qualifiers: Hypertension type: essential hypertension Qualified Code(s): I10 - Essential (primary) hypertension Reason for Visit Reason for Visit: CP Hospital Course Hospital Course Myron Clayton is a 65 year old male had a drug-eluting stent placed in the LAD and balloon angioplasty to the diagnol branch 02/15 presented with chest pain. Diagnostics in the ER revealed normal CBC, BMP unremarkable troponin however he was bradycardic with hypertensive urgency. He continued to have chest pain and cardiologhy service was consulted. Underwent LHC on 04/22, underwent successful percutaneous coronary intervention of proximal to mid LAD and diagonal artery today with ABRAHAN x2. He is doing well. Denies any complaints of chest pain, shortness of breath or palpitations. He is being discharged today in stable condition, advised to f/up with cardiology ADOBE BLOCK MAKER in one week and then with Dr. Fatima. metoprolol was discontinued at discharge due to bradycardia. It remained on hold during admission, Physical Exam Narrative: EXAM NARRATIVE: GEN: Awake, alert and oriented, no acute distress CVS: S1S2 N RS: CTA B/L Abd: Soft, nt/nd , bs+ RELIABILITY TECHNICIAN: no focal neuro deficits Discharge Data Data Completed and Pending: Completed Studies During Hospitalization Category Date Time Status XR chest 1V hernandez ble [id number] Stat Exams 04/19/20 19:39 Completed Pending at discharge Category Date Time Status BALLOON SANDER request for service Routin e Exams 04/21/20 06:46 Taken Basic Metabolic P chantel Routine Lab 04/22/20 09:00 Ordered Comprehensive Met abolic Panel Routi ne Lab 04/22/20 08:00 Results Labs from last 24 hours 04/22/20 08:00 Sodium 139 Potassium 3.8 Chloride 103 Carbon Dioxide 29 Anion Gap 10.8 BUN 15 Creatinine 0.7 GFR Calculation 113.5 Glucose 91 Calculated Osmolal ity 288 Calcium 9.3 Total Bilirubin 0.5 AST 19 ALT 28 Alkaline Phosphata se 66 Total Protein Pending Albumin 4.1 Globulin 2.4 Vitals: Last Vital Signs Temp 98.2 F 04/22/20 07:47 Pulse 60 04/22/20 07:47 Resp 16 04/22/20 07:47 BP 125/73 04/22/20 07:47 Pulse Ox 95 04/22/20 07:47 Discharge Plan Discharge Patient Disposition: Home Condition: Stable Prescriptions: Continued Ultra CoQ10 75 mg capsule 75 mg PO DAILY RF: 0 cholecalciferol (vitamin D3) 25 mcg (1,000 unit) capsule 25 mcg PO DAILY RF: 0 garlic 500 mg capsule 500 mg PO DAILY@06 RF: 0 Adult Aspirin Regimen 81 mg tablet,delayed release (DR/EC) 81 mg PO DAILY Qty: 90 RF: 4 atorvastatin 40 mg tablet 40 mg PO BEDTIME Qty: 90 RF: 4 lisinopril 2.5 mg tablet 2.5 mg PO DAILY Qty: 90 RF: 3 clopidogrel [Plavix] 75 mg tablet 75 mg PO DAILY Qty: 90 RF: 3 Discontinued metoprolol tartrate 25 mg tablet 12.5 mg PO BID Qty: 90 RF: 3 Discharge Orders: Discharge Order (Routine); Ordered 04/22/20 Ordered By: Iveth Nielsen Referrals: Brittany Devi MD [Primary Care Provider] - Patient Instructions: Opioid Safety Discharge Attestations Time Spent in Discharge Care*: greater than 30 min Status at Discharge: Cognitive status at discharge: cognitively intact, Behavioral status at discharge: cooperative, Functional status at discharge: independent ambulation Quality Metrics Clinical Quality Measures During this hospital stay, did patient experience: None Coding Level of Care Code Acute Airplane First Officer for Chg Fwd Diagnoses Unstable angina I20.0 Atherosclerotic heart disease of [place] coronary artery without angina pectoris I25.10 [place] vs. transplanted heart: [place] heart Dyslipidemia E78.5 Hypertension I10 Hypertension type: essential hypertension
[2020-04-22 10:38] VITALS: BP 127/86; PULSE 72; RESP 17; TEMP 37.1; O2SAT 96
[2020-04-22 11:14] VITALS: BP 127/86; PULSE 72; RESP 17; TEMP 37.1; O2SAT 96
== END 2020-04-22 11:14 | disposition home or self-care (01) | DRG 247 ==
LOC: ER 23:53 → CSU 04-20 07:49 → MEDSURG 04-21 07:32
PROVIDERS: Family Medicine; Internal Medicine; Student in an Organized Health Care Education/Training Program; Admitting Provider Internal Medicine; Emergency Provider Emergency Medicine; PCP Family Medicine; Visit Provider Internal Medicine
PROC: 027135Z Dilation of Coronary Artery, Two Arteries with Two Drug-eluting Intraluminal Devices, Percutaneous Approach (ICD-10-PCS; principal; 2020-04-21 08:30)
PROC: 027135Z Dilation of Coronary Artery, Two Arteries with Two Drug-eluting Intraluminal Devices, Percutaneous Approach (ICD-10-PCS; 2020-04-21 08:30)
DX: I25.110 Atherosclerotic heart disease of native coronary artery with unstable angina pectoris (principal); I44.0 Atrioventricular block, first degree; E78.5 Hyperlipidemia, unspecified; Z87.891 Personal history of nicotine dependence; R00.1 Bradycardia, unspecified; I10 Essential (primary) hypertension; Z79.02 Long term (current) use of antithrombotics/antiplatelets
CPT/HCPCS: 36415; 71045; 80053; 83735; 83880; 84443; 84484; 85025; 85347; 85378; 93005; 93454; 93571; 96372; 99285; C1725; C1769; C1874; C1887; C1894; C9600; G0378; J0153; J1644; J1650; J2250; J3010; J3490; J7030; Q0163; Q9967

== ENCOUNTER → 2020-04-29 16:38 | Outpatient (BNVA) | payer OTHER, SELFPAY | PROVIDERS: PCP Family Medicine; Visit Provider Nurse Practitioner Family | DX: I25.119 Atherosclerotic heart disease of native coronary artery with unspecified angina pectoris (principal); I10 Essential (primary) hypertension | CPT/HCPCS: 80048 ==

== ENCOUNTER 2022-07-19 09:29 | Outpatient (CLI) | payer OTHER, SELFPAY ==
--- NOTE | 2022-07-19 09:44 | USCV_ITS ---
Matilde Myron Age: 67 Gender: M : 1955 Exam Date: 07/19/2022 09:58 Ordering Phys: Brittany Devi MD Technologist: MARIELA Exam Location: [facility] [place] Indication: AAA SCREENING HISTORY: Diameter (cm) AP x Transverse x Length Velocity (cm/s) Waveform Prox Aorta: 1.96 x 1.93 x 52.70 Triphasic Mid Aorta: 1.96 x 1.84 x 59.10 Triphasic Distal Aorta: 1.91 x 1.92 x 72.20 Triphasic Right Iliac Prox: 1.20 x 1.49 x 51.90 Triphasic Left Iliac Prox: 1.19 x 1.35 x 73.40 Triphasic Stent Prox Landing x x Aneurysmal Sac Max x x Lt Lat Sac Dim Rt Lat Sac Dim Stent Dist Landing x x Right Iliac Stent x x Left Iliac Stent x x Right Renal Art Left Renal Art FINDINGS: CONCLUSIONS No evidence of abdominal aortic or bilateral iliac aneurysm. Chidi Moreno MD (Electronically Signed) Final Date: 19 Jul 2022 15:31 S
== END 2022-07-19 09:30 | disposition home or self-care (01) ==
PROVIDERS: PCP Family Medicine; Visit Provider Family Medicine
DX: I77.811 Abdominal aortic ectasia (principal)
CPT/HCPCS: 93978

== ENCOUNTER 2023-09-10 02:41 | Inpatient (IN) | payer OTHER, SELFPAY ==
[2023-09-10] VITALS (18 sets, daily range): BP systolic 138–177; BP diastolic 83–107; PULSE 48–74; RESP 13–18; TEMP 36.6–36.8; O2SAT 91–96; BMI 31.5; BMI 32.1
--- NOTE | 2023-09-10 02:51 | ECG_ITS ---
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 Measurements Intervals [place] Rate: 72 P: 71 [place]: 234 QRS: 0 QRSD: 116 T: 21 QT: 414 QTc: 454 Interpretive Statements SINUS RHYTHM WITH FIRST DEGREE AV BLOCK Compared to ECG 04/20/2020 08:15:35 No significant change Electronically Signed On 09-10-2023 13:24:44 CDT by Bhavani Barillas M.D. [email or web address] [email or web address] [email or web address] [email or web address] system.[email or web address]/store/[id number]
--- NOTE | 2023-09-10 02:52 | XRR_ITS ---
PROCEDURE INFORMATION: Exam: XR Chest Exam date and time: 09/10/2023 2:55 AM Age: 68 years old Clinical indication: Chest pressure; Prior surgery; Surgery date: 6+ months; Surgery type: Coronary stents; Patient HX: C/O chest pain; Additional info: Cp TECHNIQUE: Imaging protocol: Radiologic exam of the chest. Views: 1 view. COMPARISON: CR XR chest 1V portable [id number] 04/19/2020 7:46 PM FINDINGS: Lungs: Unremarkable. No consolidation. Pleural spaces: Unremarkable. No pleural effusion. No pneumothorax. Heart/Mediastinum: The heart is enlarged. Bones/joints: Unremarkable. XR/XR chest 1V portable [id number] IMPRESSION: 1. Cardiomegaly.
--- NOTE | 2023-09-10 03:21 | ED_ITS ---
Documented by User: Ron Rodriguez, 09/10/23 15:37 HPI - Chest Pain 2 General: Chief Complaint: Chest Pain Stated Complaint: CP Time Seen by Provider: 09/10/23 02:54 History of Present Illness: 68-year-old gentleman with a history of coronary disease. He has 3 stents in his heart he says. Last placed in 21. No testing since. He says he had chest pain since around 1030 last night. He awoke at 1:30 in the morning, and it was going on his left arm, was worse. He was hypotensive at home, so he came to the emergency room. He took amlodipine before coming. He still rates his pain at a 7 or so 8. He says it is just now beginning to let up. Associated symptoms: Deny abdominal pain, fever(s), nausea, palpitations or vomiting Review of Systems 2 Const: Denies: fever(s), chills or body aches Eyes: Denies: change in vision Card: Denies: palpitations Resp: Denies: productive cough, non-productive cough or wheezing GI: Denies: abdominal pain, nausea, vomiting, diarrhea or hematochezia Skin/Breast: Denies: rash Neuro: Denies: headache(s), weakness in extremities, dizziness or confusion PFSH ED 2 PFSH: Medical History (Updated 09/10/23 @ 06:55 by Jaiden Ojeda MD) Atherosclerosis of coronary artery of [place] heart without angina pectoris Abnormal cardiovascular stress test History of left heart catheterization Presence of stent in LAD coronary artery Atypical chest pain Dyslipidemia Unstable angina No significant past medical history Surgical History Hx of cataract surgery History of ankle surgery History of tonsillectomy H/O shoulder surgery Family History Father CAD (coronary artery disease) First [place] age 48, at age 61 Diabetes Mother CAD (coronary artery disease) Grandfather CAD (coronary artery disease) Grandmother CAD (coronary artery disease) Diabetes Stroke Denies family history of Clotting disorder Dementia Chronic kidney disease (CKD) Suicide Anesthesia complication Bleeding disorder Lung disease Cancer Social History Smoking and tobacco/nicotine status: former use of tobacco/nicotine Alcohol intake: never Substance/Drug Use: former Physical Exam 2 Const: COMMON NORMALS: no acute distress GENERAL APPEARANCE: cooperative; not ill appearing and not frail appearing HENMT: COMMON NORMALS: normocephalic, atraumatic and Normal external nose present HEAD & SCALP: normocephalic and atraumatic FACE & SINUS: normal facial exam and face symmetric NOSE: Normal external nose present Eye: COMMON NORMALS: Equal, round and reactive pupils present and EOMs intact bilaterally PUPIL: Yes Equal, round and reactive pupils present Neck/C-Spine: GENERAL: Yes trachea midline Chest: CHEST: Yes Symmetrical chest wall rise Resp: COMMON NORMALS: normal respiratory effort, No retractions, No use of accessory muscles and clear to auscultation bilaterally AUSCULTATION: clear to auscultation bilaterally Cardio: COMMON NORMALS: regular rate and regular rhythm RATE: regular rate RHYTHM: regular rhythm GI: COMMON NORMALS: Normal to inspection, nondistended, normoactive bowel sounds present Extremity: COMMON NORMALS: no pedal edema Neuro: NAHUN COMA SCALE: document GCS findings [place] coma scale eye opening: Spontaneous Adger coma scale verbal response: Orientated Adger coma scale motor response: Obey commands [place] coma scale total score: 15 S ENSORY EXAM: Yes extremities (intact) Psych: COMMON NORMALS: speech normal SPEECH: Yes normal speech Skin: COMMON NORMALS: no rashes or lesions noted GENERAL SKIN EXAM: no rashes or lesions noted Course 2 Vital Signs: Vital signs: Vital Signs Temperature 97.8 F 09/10/23 13:06 Pulse Rate 53 L 09/10/23 13:06 Respiratory Rate 18 09/10/23 13:06 Blood Pressure 153/86 09/10/23 13:06 Pulse Oximetry 96 09/10/23 13:06 Oxygen Delivery Me thod Room Air 09/10/23 13:06 MDM - Chest Pain Medical Decision Making Patient's initial EKG reveals sinus rhythm with a rate of 70, first-degree AV block with a NV interval 234. Interventricular conduction delay with a QRS duration of 116. No acute ST wave changes. He is hypertensive. Other vitals are stable. Chest x-ray shows cardiomegaly. His delta troponin is 7. His chest pain is resolved at this point. He has been quite bradycardic at times on the monitor, down to 45. His second EKG shows a sinus rhythm, bradycardia, rate of 50, first-degree AV block is present. This gentleman has an extensive history. He has not had any cardiac testing since 2020. With a rise in his delta, suspicious pain, he will be observed. Call out to hospitalist. Lab Data 09/10/23 03:39 09/10/23 03:39 Radiology Impressions Chest X-Ray 09/10/23 02:52 IMPRESSION: 1. Cardiomegaly. Laboratory Results WBC 7.97 10^3/uL (3.29-11.43) 09/10/23 03:39 RBC 4.87 10^6/uL (3.85-5.65) 09/10/23 03:39 Hgb 14.90 g/dL (11.27-16.99) 09/10/23 03:39 Hct 43.7 % (37-53) 09/10/23 03:39 MCV 89.7 fl (82-101) 09/10/23 03:39 MCH 30.6 pg (27-33) 09/10/23 03:39 MCHC 34.1 g/dL (30-55) 09/10/23 03:39 RDW 13.4 % (12.1-15.1) 09/10/23 03:39 Plt Count 212 10^3/cmm (157-399) 09/10/23 03:39 MPV 8.7 fL (7.4-10.4) 09/10/23 03:39 Neut % (Auto) 57.0 % 09/10/23 03:39 Lymph % (Auto) 32.1 % 09/10/23 03:39 Esmeralda % (Auto) 7.3 % 09/10/23 03:39 Eos % (Auto) 2.0 % 09/10/23 03:39 Baso % (Auto) 0.8 % 09/10/23 03:39 Neut # (Auto) 4.55 10^3/uL (1.8-7.7) 09/10/23 03:39 Lymph # (Auto) 2.6 10^3/uL (0.8-4.8) 09/10/23 03:39 Esmeralda # (Auto) 0.6 10^3/uL (0.2-0.9) 09/10/23 03:39 Eos # (Auto) 0.2 10^3/uL (0.0-0.8) 09/10/23 03:39 Baso # (Auto) 0.1 10^3/uL (0.0-0.1) 09/10/23 03:39 Nucleated RBC % (auto) 0 % 09/10/23 03:39 Nucleated RBCs # 0.0 /100WBC 09/10/23 03:39 D-Dimer 0.44 ug/mLFEU (0-0.59) 09/10/23 03:39 Sodium 141 mmol/L (136-145) 09/10/23 03:39 Potassium 3.6 mmol/L (3.5-5.1) 09/10/23 03:39 Chloride 105 mmol/L (98-107) 09/10/23 03:39 Carbon Dioxide 24 mmol/L (22-29) 09/10/23 03:39 Anion Gap 15.6 (5-19) 09/10/23 03:39 BUN 23 mg/dL (8-23) 09/10/23 03:39 Creatinine 0.7 mg/dL (0.7-1.2) 09/10/23 03:39 GFR Calculation 112.5 mL/min (90-130) 09/10/23 03:39 Glucose 114 mg/dL (65-115) 09/10/23 03:39 Calculated Osmolality 297 mOsm/kg (285-295) H 09/10/23 03:39 Calcium 9.0 mg/dL (8.5-10.5) 09/10/23 03:39 Troponin T Baseline 22 ng/L (0-15) H 09/10/23 03:39 Troponin T 120 Minute 29.09 ng/L (0-15) H 09/10/23 05:14 Delta Troponin T 7.09 ABS# (0-10) 09/10/23 05:14 NT-Pro-B Natriuret Pep 97 pg/mL (0-125) 09/10/23 03:39 TSH 2.74 uIU/mL (0.27-4.20) 09/10/23 03:39 Urine Color Yellow (Yellow) 09/10/23 04:03 Urine Appearance Clear (CLEAR) 09/10/23 04:03 Urine pH 5 (5-7) 09/10/23 04:03 Ur Specific [place] 1.015 (1.005-1.030) 09/10/23 04:03 Urine Protein Neg (Negative) 09/10/23 04:03 Urine Glucose (UA) Norm (Normal) 09/10/23 04:03 Urine Ketones Negative (Negative) 09/10/23 04:03 Urine Blood Neg (Negative) 09/10/23 04:03 Urine Nitrate Negative (Negative) 09/10/23 04:03 Urine Bilirubin Neg (Negative) 09/10/23 04:03 Urine Urobilinogen Neg mg/dL (Negative) 09/10/23 04:03 Ur Leukocyte Esterase Negative (Negative) 09/10/23 04:03 Discharge Plan Discharge Patient Disposition: Placed in Observation Admit Provider: Iveth Nielsen Clinical Impression: Chest pain, Unstable angina, Sinus bradycardia Coding Level of Care Code ED Air Conditioning Supervisor for Chg Fwd Documented by User: Florencio Reddy DO 09/10/23 06:25 HPI - Chest Pain 2 General: Chief Complaint: Chest Pain Stated Complaint: CP Time Seen by Provider: 09/10/23 02:54 PFS ED 2 PFSH: Medical History (Updated 09/10/23 @ 06:55 by Jaiden Ojeda MD) Atherosclerosis of coronary artery of [place] heart without angina pectoris Abnormal cardiovascular stress test History of left heart catheterization Presence of stent in LAD coronary artery Atypical chest pain Dyslipidemia Unstable angina No significant past medical history Surgical History Hx of cataract surgery History of ankle surgery History of tonsillectomy H/O shoulder surgery Family History Father CAD (coronary artery disease) First [place] age 48, at age 61 Diabetes Mother CAD (coronary artery disease) Grandfather CAD (coronary artery disease) Grandmother CAD (coronary artery disease) Diabetes Stroke Denies family history of Clotting disorder Dementia Chronic kidney disease (CKD) Suicide Anesthesia complication Bleeding disorder Lung disease Cancer Social History Smoking and tobacco/nicotine status: former use of tobacco/nicotine Alcohol intake: never Substance/Drug Use: former Physical Exam 2 Neuro: NAHUN COMA SCALE: document GCS findings Adger coma scale total score: 15 Course 2 Consultations: Consultation #1: Discussed with Dr. Ojeda who agreed to place the patient in observation. Patient is currently clinically stable at in the emergency department. Time: 06:25 Vital Signs: Vital signs: Vital Signs Temperature 97.8 F 09/10/23 13:06 Pulse Rate 53 L 09/10/23 13:06 Respiratory Rate 18 09/10/23 13:06 Blood Pressure 153/86 09/10/23 13:06 Pulse Oximetry 96 09/10/23 13:06 Oxygen Delivery Me thod Room Air 09/10/23 13:06 MDM - Chest Pain Lab Data 09/10/23 03:39 09/10/23 03:39 Radiology Impressions Chest X-Ray 09/10/23 02:52 IMPRESSION: 1. Cardiomegaly. Laboratory Results WBC 7.97 10^3/uL (3.29-11.43) 09/10/23 03:39 RBC 4.87 10^6/uL (3.85-5.65) 09/10/23 03:39 Hgb 14.90 g/dL (11.27-16.99) 09/10/23 03:39 Hct 43.7 % (37-53) 09/10/23 03:39 MCV 89.7 fl (82-101) 09/10/23 03:39 MCH 30.6 pg (27-33) 09/10/23 03:39 MCHC 34.1 g/dL (30-55) 09/10/23 03:39 RDW 13.4 % (12.1-15.1) 09/10/23 03:39 Plt Count 212 10^3/cmm (157-399) 09/10/23 03:39 MPV 8.7 fL (7.4-10.4) 09/10/23 03:39 Neut % (Auto) 57.0 % 09/10/23 03:39 Lymph % (Auto) 32.1 % 09/10/23 03:39 Esmeralda % (Auto) 7.3 % 09/10/23 03:39 Eos % (Auto) 2.0 % 09/10/23 03:39 Baso % (Auto) 0.8 % 09/10/23 03:39 Neut # (Auto) 4.55 10^3/uL (1.8-7.7) 09/10/23 03:39 Lymph # (Auto) 2.6 10^3/uL (0.8-4.8) 09/10/23 03:39 Esmeralda # (Auto) 0.6 10^3/uL (0.2-0.9) 09/10/23 03:39 Eos # (Auto) 0.2 10^3/uL (0.0-0.8) 09/10/23 03:39 Baso # (Auto) 0.1 10^3/uL (0.0-0.1) 09/10/23 03:39 Nucleated RBC % (auto) 0 % 09/10/23 03:39 Nucleated RBCs # 0.0 /100WBC 09/10/23 03:39 D-Dimer 0.44 ug/mLFEU (0-0.59) 09/10/23 03:39 Sodium 141 mmol/L (136-145) 09/10/23 03:39 Potassium 3.6 mmol/L (3.5-5.1) 09/10/23 03:39 Chloride 105 mmol/L (98-107) 09/10/23 03:39 Carbon Dioxide 24 mmol/L (22-29) 09/10/23 03:39 Anion Gap 15.6 (5-19) 09/10/23 03:39 BUN 23 mg/dL (8-23) 09/10/23 03:39 Creatinine 0.7 mg/dL (0.7-1.2) 09/10/23 03:39 GFR Calculation 112.5 mL/min (90-130) 09/10/23 03:39 Glucose 114 mg/dL (65-115) 09/10/23 03:39 Calculated Osmolality 297 mOsm/kg (285-295) H 09/10/23 03:39 Calcium 9.0 mg/dL (8.5-10.5) 09/10/23 03:39 Troponin T Baseline 22 ng/L (0-15) H 09/10/23 03:39 Troponin T 120 Minute 29.09 ng/L (0-15) H 09/10/23 05:14 Delta Troponin T 7.09 ABS# (0-10) 09/10/23 05:14 NT-Pro-B Natriuret Pep 97 pg/mL (0-125) 09/10/23 03:39 TSH 2.74 uIU/mL (0.27-4.20) 09/10/23 03:39 Urine Color Yellow (Yellow) 09/10/23 04:03 Urine Appearance Clear (CLEAR) 09/10/23 04:03 Urine pH 5 (5-7) 09/10/23 04:03 Ur Specific [place] 1.015 (1.005-1.030) 09/10/23 04:03 Urine Protein Neg (Negative) 09/10/23 04:03 Urine Glucose (UA) Norm (Normal) 09/10/23 04:03 Urine Ketones Negative (Negative) 09/10/23 04:03 Urine Blood Neg (Negative) 09/10/23 04:03 Urine Nitrate Negative (Negative) 09/10/23 04:03 Urine Bilirubin Neg (Negative) 09/10/23 04:03 Urine Urobilinogen Neg mg/dL (Negative) 09/10/23 04:03 Ur Leukocyte Esterase Negative (Negative) 09/10/23 04:03 All radiology interpretation(s) finalized by discharge Discharge Plan Discharge Patient Disposition: Placed in Observation Admit Provider: Iveth Nielsen Clinical Impression: Chest pain, Unstable angina, Sinus bradycardia Coding Level of Care Code ED Air Conditioning Supervisor for Pk Sargent
[2023-09-10] MEDS: aspirin 325 mg Tablet PO (03:46)
[2023-09-10] MEDS: morphine 4 mg/mL SDV 1 mL IVP (03:47)
[2023-09-10] MEDS: ondansetron 2 mg/ML SDV 2 mL 4 MG IVP (03:47)
[2023-09-10] MEDS: nitroglycerin 0.4 mg sublingual Tablet SUBLINGUAL (03:47)
[2023-09-10 03:55] LABS: Basophils # 0.1 10^3/uL (0.0-0.1); Basophils % 0.8 %; Eosinophils # 0.2 10^3/uL (0.0-0.8); Hematocrit 43.7 % (37-53); Lymphocytes # 2.6 10^3/uL (0.8-4.8); Lymphocytes % 32.1 %; Mean Corpuscular HGB Conc 34.1 g/dL (30-55); Mean Corpuscular Hemoglobin 30.6 pg (27-33); Mean Corpuscular Volume 89.7 fl (82-101); Mean Platelet Volume 8.7 fL (7.4-10.4); Monocytes # 0.6 10^3/uL (0.2-0.9); Monocytes % 7.3 %; Neutrophils # 4.55 10^3/uL (1.8-7.7); Nucleated Red Blood Cells % 0 %; Platelet Count 212 10^3/cmm (157-399); Red Blood Count 4.87 10^6/uL (3.85-5.65); Red Cell Distribution Width 13.4 % (12.1-15.1); White Blood Count 7.97 10^3/uL (3.29-11.43)
[2023-09-10 04:09] LABS: Add Urine Microscopic? NO; Charge for UA Resulting for Rev
[2023-09-10 04:15] LABS: Bilirubin Urine Neg (Negative); Blood Urine Neg (Negative); Glucose Urine UA Norm (Normal); Ketones Urine Negative (Negative); Leukocyte Esterase Urine Negative (Negative); Nitrate Urine Negative (Negative); Protein Urine Neg (Negative); Specific Gravity, Urine 1.015 (1.005-1.030); Urine Appearance Clear (CLEAR); Urine Color Yellow (Yellow); Urobilinogen Urine Neg (Negative); pH Urine 5 (5-7)
[2023-09-10 04:24] LABS: Anion Gap 15.6 (5-19); Blood Urea Nitrogen 23 mg/dL (8-23); Carbon Dioxide 24 mmol/L (22-29); Chloride 105 mmol/L (98-107); Creatinine Clr Calc Pharmacy 106.0984; Glomerular Filtration Rate 112.5 mL/min (90-130); Glucose 114 mg/dL (65-115); NT Pro B Type Natriuretic Pept 97 pg/mL (0-125); Osmolality Calculated 297 mOsm/kg (285-295); Potassium 3.6 mmol/L (3.5-5.1); Sodium 141 mmol/L (136-145)
[2023-09-10] MEDS: nitroglycerin 1 gm/inch oint Pkt 1 INCH TOPICAL (04:41)
[2023-09-10 04:44] LABS: Troponin(5th) Baseline 22 ng/L (0-15)
--- NOTE | 2023-09-10 04:51 | ECG_ITS ---
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 Measurements Intervals [place] Rate: 52 P: 44 ND: 235 QRS: 0 QRSD: 110 T: 19 QT: 461 QTc: 430 Interpretive Statements SINUS BRADYCARDIA WITH FIRST DEGREE AV BLOCK Compared to ECG 09/10/2023 02:52:59 Sinus rhythm no longer present Ventricular premature complex(es) no longer present Intraventricular conduction delay no longer present Electronically Signed On 09-10-2023 16:09:31 CDT by Bhavani Barillas M.D. [id number]
[2023-09-10 05:40] LABS: Troponin 5 2HR 29.09 ng/L (0-15); Troponin 5 2HR Delta 7.09 ABS# (0-10)
--- NOTE | 2023-09-10 06:24 | PM.HP ---
Providers/Chief Complaint Primary Care Provider: Brittany Devi MD Chief Complaint: CP History of Present Illness Myron Clayton is a 68 year old male who has established coronary disease with 2 stents placed in 2020 left heart cath done 04/19 LAD and diagonal presenting today with chief complaint chest pain. 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 He decided to come to the hospital for the evaluation. Patient checked his blood pressure at home and it was high diastolic blood pressure was around 120 mmHg In the ER patient is bradycardic, hypotensive, chest pain-free, received morphine and nitroglycerin, nitroglycerin morphine to ease his chest pain. Pain lasted until he received medications. Radiating towards his left arm. No active pain at the time of evaluation. Patient does not drink or smoke. Physically active. Please note patient has not taken aspirin and Plavix or any medication at all because the [facility] and he was not able to get refills. Recently he has been given a new medication for his blood pressure. Please note his bradycardia and hypotension was a concern in 2020 as well at the time of left heart cath. Review of Systems Const: Denies: fever(s) Eyes: Denies: change in vision ENMT: Denies: throat pain Card: Reports: chest pain Resp: Denies: dyspnea GI: Denies: abdominal pain Medications/Allergies Home Medications Medication Instructions Recorded Confirmed Last Taken Type aspirin 81 mg tablet,delayed 81 mg PO DAILY #90 tabs 03/04/20 04/29/20 Unknown Rx release (Adult Aspirin Regimen) atorvastatin 40 mg tablet 40 mg PO BEDTIME #90 tabs 03/04/20 04/29/20 Unknown Rx cholecalciferol (vitamin D3) 25 25 mcg PO DAILY 03/12/20 04/29/20 Unknown History mcg (1,000 unit) capsule coenzyme Q10 75 mg capsule (Ultra 75 mg PO DAILY 03/12/20 04/29/20 Unknown History CoQ10) garlic 500 mg capsule 500 mg PO DAILY@06 03/12/20 04/29/20 Unknown History clopidogrel 75 mg tablet (Plavix) 75 mg PO DAILY #90 tabs 04/02/20 04/29/20 Unknown Rx losartan 50 mg tablet 50 mg PO DAILY 90 days #90 tabs 11/12/20 11/12/20 Unknown Rx Allergies Allergy/AdvReac Type Severity Reaction Status Date / Time lisinopril Allergy Cough Verified 11/12/20 07:40 PFSH Acute PFSH: Medical History (Updated 09/10/23 @ 06:55 by Jaiden Ojeda MD) Atherosclerosis of coronary artery of [place] heart without angina pectoris Abnormal cardiovascular stress test History of left heart catheterization Presence of stent in LAD coronary artery Atypical chest pain Dyslipidemia Unstable angina No significant past medical history Surgical History Hx of cataract surgery History of ankle surgery History of tonsillectomy H/O shoulder surgery Family History Father CAD (coronary artery disease) First [place] age 48, at age 61 Diabetes Mother CAD (coronary artery disease) Grandfather CAD (coronary artery disease) Grandmother CAD (coronary artery disease) Diabetes Stroke Denies family history of Clotting disorder Dementia Chronic kidney disease (CKD) Suicide Anesthesia complication Bleeding disorder Lung disease Cancer Social History Smoking and tobacco/nicotine status: former use of tobacco/nicotine Alcohol intake: never Substance/Drug Use: former Vitals/I&O/Wt Last Vital Signs Temp 98 F 09/10/23 02:57 Pulse 66 09/10/23 06:00 Resp 13 09/10/23 06:00 BP 161/95 09/10/23 06:00 Pulse Ox 96 09/10/23 06:00 O2 Del Method Room Air 09/10/23 03:16 Weight last 48 hrs Weight 99.79 kg Physical Exam Narrative: Well-built male GCS 15 S1, S2 Nonfocal neuroexam Sinus bradycardia Hypertensive No active chest pain Pleasant and cooperative Data 09/10/23 03:39 09/10/23 03:39 A&P Assessment and plan (1) Unstable angina: (2) Hypertension: Qualifiers: Hypertension type: essential hypertension Qualified Code(s): I10 - Essential (primary) hypertension (3) Coronary artery disease: Qualifiers: Coronary Disease-Associated Artery/Lesion type: [place] artery [place] vs. transplanted heart: [place] heart Associated angina: with unspecified angina Qualified Code(s): I25.119 - Atherosclerotic heart disease of [place] coronary artery with unspecified angina pectoris (4) Chest pain: (5) Sinus bradycardia: Plan Unstable angina Patient has not been taking aspirin or Plavix for quite some time Bradycardic and hypotensive Adjust antihypertensive regimen, avoid AV awilda blocking agent No active chest pain at the time of evaluation Requested echo Requested D-dimer Patient will need cardiology consultation, please review this case with cardiology in the morning Full code Cardiac diet Serial troponin and EKG EKG revealing sinus rhythm with first-degree AV block DVT prophylaxis added Attestations Medical Necessity Statement*: Anticipate discharge within 48 hours Diagnoses Unstable angina I20.0 Essential hypertension I10 Hypertension type: essential hypertension Coronary artery disease involving [place] coronary artery of [place] heart with angina pectoris I25.119 Coronary Disease-Associated Artery/Lesion type: [place] artery [place] vs. transplanted heart: [place] heart Associated angina: with unspecified angina Chest pain R07.9 Sinus bradycardia R00.1
[2023-09-10 07:26] LABS: Thyroid Stimulating Hormone 2.74 uIU/mL (0.27-4.20)
[2023-09-10 07:30] LABS: D Dimer 0.44 ug/mLFEU (0-0.59)
--- NOTE | 2023-09-10 09:18 | ECG_ITS ---
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 Measurements Intervals [place] Rate: 54 P: 58 [place]: 227 QRS: -1 QRSD: 109 T: 26 QT: 493 QTc: 468 Interpretive Statements SINUS BRADYCARDIA WITH MARKED SINUS ARRHYTHMIA WITH FIRST DEGREE AV BLOCK LOW QRS VOLTAGE IN PRECORDIAL LEADS Compared to ECG 09/10/2023 05:44:28 Low QRS voltage now present Electronically Signed On 09-10-2023 16:08:34 CDT by Bhavani Barillas M.D. [id number]
--- NOTE | 2023-09-10 10:03 | USCV_ITS ---
Myron Clayton Age: 68 Gender: M : 1955 Exam Date: 09/10/2023 13:17 Ordering Phys: Jaiden Ojeda MD Technologist: Alek Cintron Exam Location: [facility] [place] Indication: UA BP: 145 / 93 HR: 65 Rhythm: Sinus Technical Quality: Adequate MEASUREMENTS (Male / Female) Normal Values 2D ECHO LV Diastolic Diameter PLAX 3.9 cm 4.2 - 5.9 / 3.9 - 5.3 cm IVS Diastolic Thickness 1.2 cm 0.6 - 1.0 / 0.6 - 0.9 cm IVS Systolic Thickness 2.1 cm LVPW Diastolic Thickness 2.0 cm 0.6 - 1.0 / 0.6 - 0.9 cm LVPW Systolic Thickness 2.1 cm LVOT Diameter 2.1 cm LV Ejection Fraction 2D Teich 77.1 % LV Ejection Fraction MOD 4C 59.9 % LV Ejection Fraction MOD 2C 63.9 % LV Ejection Fraction 2C AL 65.1 % LA Diameter 3.6 cm RA Systolic Volume 4C AL 45.1 ml RA Systolic Volume 4C MOD 40.6 ml LA Sys Volume AL 70.2 cm cubed LA Sys Volume Index AL 30.9 cm cubed/m squared Aorta at Sinotubular Diameter 2.4 cm IVC Diameter 1.6 cm M-MODE LA Ao Ratio MM 1.5 MV E Point Septal Separation 0.9 cm AV Cusp Separation MM 2.1 cm DOPPLER AV Peak Velocity 149.0 cm/s LVOT Peak Velocity 101.0 cm/s AV Area Cont Eq vti 2.1 cm squared AV Area Cont Eq pk 2.4 cm squared MV Peak Velocity 105.0 cm/s MV Area PHT 3.9 cm squared Mitral E to A Ratio 1.2 TR Peak Velocity 139.0 cm/s TR Peak Gradient 7.7 mmHg TR Mean Velocity 115.0 cm/s TR Mean Gradient 5.6 mmHg TR Velocity Time Integral 49.7 cm PV Peak Velocity 80.3 cm/s RV Ejection Time 0.3 s FINDINGS Left Ventricle Normal left ventricular size, systolic function and wall thickness, with no regional wall motion abnormalities. Left ventricular ejection fraction is estimated at 65%. Right Ventricle Normal right ventricular size and systolic function. Right Atrium Normal right atrial size. Left Atrium Normal left atrial size. Mitral Valve Structurally normal mitral valve. Aortic Valve Structurally normal trileaflet aortic valve. Tricuspid Valve Structurally normal tricuspid valve. Pulmonic Valve Pulmonic valve not well visualized. Pericardium No pericardial effusion. Aorta Normal size aortic root and proximal ascending aorta. IVC Normal inferior vena cava. CONCLUSIONS Normal left ventricular systolic function. LVEF estimated normal at 65%. Normal chamber sizes. No significant valvular abnormality noted. Normal right heart and pulmonary pressures. Bhavani Barillas MD (Electronically Signed) Final Date: 10 September 2023 17:24 S
[2023-09-10 10:23] LABS: Troponin 5 6HR 26.05 ng/L (0-15); Troponin 5 6HR Delta 4.05 ng/L (0-12)
[2023-09-10] MEDS: losartan 50 mg Tablet PO (11:38)
[2023-09-10] MEDS: enoxaparin 40 mg/0.4 mL Syringe SUBCUT (11:39)
[2023-09-10] MEDS: aspirin 81 mg EC Tablet PO (11:39)
--- NOTE | 2023-09-10 19:36 | PM.MISC ---
Miscellaneous Note Purpose of Documentation: Wound culture from labs and H&P reviewed. Pain is currently controlled after receiving nitroglycerin. Given that patient has multiple cardiac risk factors and history of the same, will obtain stress test in the morning. Patient prefers to undergo an exercise stress test rather than a Lexiscan stress test. Note: EKG and tropinins
--- NOTE | 2023-09-10 19:37 | ECG_ITS ---
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 Interpretive Statements NAME OF STUDY: EXERCISE SESTAMIBI STRESS TEST INDICATION: [Anginal Chest Pain] [id number]
[2023-09-10 21:01] LABS: Troponin T (5th) Once 21 ng/L (0-15)
[2023-09-10] MEDS: atorvastatin 40 mg Tablet PO (21:41)
[2023-09-10] MEDS: zolpidem 5 mg Tablet PO (22:55)
[2023-09-11] VITALS (58 sets, daily range): BP systolic 138–166; BP diastolic 83–105; PULSE 54–90; RESP 9–26; TEMP 36.4–37; O2SAT 85–98
[2023-09-11 06:37] LABS: Anion Gap 13.7 (5-19); Blood Urea Nitrogen 15 mg/dL (8-23); Calcium 8.5 mg/dL (8.5-10.5); Carbon Dioxide 24 mmol/L (22-29); Chloride 103 mmol/L (98-107); Creatinine Clr Calc Pharmacy 106.4893; Glomerular Filtration Rate 112.5 mL/min (90-130); Glucose 105 mg/dL (65-115); Magnesium 2.1 mg/dL (1.7-2.3); Osmolality Calculated 285 mOsm/kg (285-295); Potassium 3.7 mmol/L (3.5-5.1); Sodium 137 mmol/L (136-145)
[2023-09-11] MEDS: aspirin 81 mg EC Tablet PO (08:30)
[2023-09-11] MEDS: losartan 50 mg Tablet PO (08:30)
--- NOTE | 2023-09-11 08:30 | PC.NURSE ---
Patient returned from chemical stress test with BP elevated at 155/96, patient denies vision changes, headache, or dizziness. Patient is not notably flushed. Losartan administered as ordered. Will recheck BP to ensure it is decreasing.
[2023-09-11] MEDS: enoxaparin 40 mg/0.4 mL Syringe SUBCUT (11:05)
--- NOTE | 2023-09-11 11:37 | ECG_ITS ---
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 Measurements Intervals [place] Rate: 78 P: 72 FL: 215 QRS: -1 QRSD: 112 T: 14 QT: 400 QTc: 456 Interpretive Statements SINUS RHYTHM WITH FIRST DEGREE AV BLOCK MODERATE INTRAVENTRICULAR CONDUCTION DELAY [110+ ms QRS DURATION] Compared to ECG 09/10/2023 09:18:10 Intraventricular conduction delay now present Sinus bradycardia no longer present Sinus arrhythmia no longer present Electronically Signed On 09-11-2023 14:21:11 CDT by Rashaad Almaraz M.D. [id number]
--- NOTE | 2023-09-11 11:43 | PC.NURSE ---
Patient c/o angina after Lovenox injection administration, pain level 2/10. Obtained STAT order for EKG and performed at bedside. EKG appeared to be NSR with rate of 78. I informed Dr. Ojeda of this and he stated that patient's stress test was positive and we would be making him NPO and consulting cardiology. I informed patient of this and he verbalizes understanding. Dr. Ojeda states he will place an order for Nitropaste.
--- NOTE | 2023-09-11 11:45 | PM.PN ---
Subjective Subjective: Patient was hypertensive, started complaining of chest pain after stress test Stress test came back positive Dr. Fatima consulted Added amlodipine chlorthalidone Added IV hydralazine for as needed basis Vitals/I&O/Wt Last Vital Signs Temp 98.6 F 09/11/23 09:00 Pulse 79 09/11/23 10:00 Resp 18 09/11/23 10:00 BP 151/83 09/11/23 09:00 Pulse Ox 97 09/11/23 10:00 O2 Del Method Room Air 09/11/23 10:00 09/10/23 09/11/23 09/11/23 22:59 06:59 14:59 Intake Total 980 / 980 480 / 1460 680 / 680 Balance 980 / 980 480 / 1460 680 / 680 Weight last 48 hrs Weight 100.561 kg Weight 101.605 kg Weight 99.79 kg Physical Exam Narrative: Patient is sitting at the bedside Hypertensive Currently on room air Nonfocal neuroexam Chest pain 2/10 Awake and alert euvolemic Pleasant cooperative Data 09/10/23 03:39 09/11/23 05:43 A&P Assessment and plan (1) Hypertension: Qualifiers: Hypertension type: essential hypertension Qualified Code(s): I10 - Essential (primary) hypertension (2) Unstable angina: (3) Coronary artery disease: Qualifiers: Coronary Disease-Associated Artery/Lesion type: [place] artery [place] vs. transplanted heart: [place] heart Associated angina: with unspecified angina Qualified Code(s): I25.119 - Atherosclerotic heart disease of [place] coronary artery with unspecified angina pectoris Plan Unstable angina Patient will need angiogram Positive stress test Continue aspirin Established history of coronary disease [address] Fatima consulted Hypertension: Uncontrolled Added amlodipine, hydralazine, chlorthalidone and continued losartan Full code N.p.o. for now Patient was taking aspirin and Plavix which she stopped taking because his issues with the [facility] coverage Attestations Medical Necessity Statement*: Patient will stay will need an angiogram Diagnoses Essential hypertension I10 Hypertension type: essential hypertension Unstable angina I20.0 Coronary artery disease involving [place] coronary artery of [place] heart with angina pectoris I25.119 Coronary Disease-Associated Artery/Lesion type: [place] artery [place] vs. transplanted heart: [place] heart Associated angina: with unspecified angina
[2023-09-11] MEDS: amlodipine 10 mg Tablet PO (11:52)
[2023-09-11] MEDS: nitroglycerin 1 gm/inch oint Pkt 0.5 INCH TOPICAL (11:52)
--- NOTE | 2023-09-11 11:56 | PC.NURSE ---
At bedside with patient, he continues to c/o angina 05/06. Applied Nitro as ordered and administered Amlodipine. Provided education on both medications with patient and explained change to NPO status. 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
--- NOTE | 2023-09-11 13:49 | P.CONIM_ITS ---
Providers/Reason For Consult 2 Consulting Physician/Specialty*: MARINA Fatima MD/cardiology Reason for Consult*: Patient with chest pain and abnormal Myocardial perfusion imaging Requesting Physician: Dr. Ojeda Attending Physician: Jaiden Ojeda MD Primary Care Provider: Brittany Devi MD History of Present Illness History of Present Illness Myron Clayton is a 68 year old male with a history of atherosclerotic heart disease and previous PCI's, is admitted to hospital with complaints of chest pain. He had an abnormal Myocardial perfusion imaging today. Cardiology consult is requested for further cardiac evaluation recommendations. This patient PCI of the mid LAD in January 2020. In March 2020, he had some progression of disease in the proximal to mid LAD for which he underwent PCI and stent placement. Also had a high-grade proximal diagonal lesion which she was intervened at the same time as well. According the patient, he has been doing okay since then. He stopped taking the Plavix after a year or so. He has not had any specific cardiac symptoms up until last Monday when he was getting ready to go to bed, started having some discomfort in the chest. It was mild in nature and was not very concerning. Currently went to bed with the symptoms. 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 The intensity was 5-6/10. The pain may last for an hour or so. He was evaluated in the emergency room. He was given sublingual nitro and other symptomatic measures. The symptoms gradually subsided. He had a few episodes of chest pain while being in the hospital. Today also after the stress test, he is having some chest discomfort. He has no fever, chills or cough. No unusual shortness of breath. No orthopnea PND. Has a history of hypertension, dyslipidemia. No history for diabetes, CVA or peripheral artery disease. No history of chronic kidney disease, liver disease or bleeding disorders. Review of Systems 2 Narrative: CONSTITUTIONAL: No fever or chills. EYES: No blurring of vision or other visual disturbances lately. ENT: No hoarseness of voice, auditory disturbances or sore throat. CARDIOVASCULAR: As mentioned above. RESPIRATORY: No significant cough. GASTROINTESTINAL: No hematemesis or melena. GENITOURINARY: No dysuria or hematuria. INTEGUMENTARY: No skin rashes or history of skin cancer. NEURO: No transient ischemic attacks or amaurosis. PSYCHIATRIC: No history of psychosis or major depression. HEMATOLOGIC: No bleeding disorders or significant anemia. ENDOCRINE: No history of polyuria or polydipsia. MUSCULOSKELETAL: No recent joint pain or swelling. ALLERGY/IMMUNOLOGY: As mentioned above. Medications/Allergies Home Medications Medication Instructions Recorded Confirmed Last Taken Type amlodipine 5 mg tablet 5 mg PO DAILY 09/10/23 09/10/23 Unknown History Allergies Allergy/AdvReac Type Severity Reaction Status Date / Time lisinopril Allergy Cough Verified 11/12/20 07:40 Current Medications Generic Name Dose Route Start Last Admin Trade Name Freq PRN Reason Stop Dose Admin Amlodipine Besylate 10 mg 09/11/23 11:45 09/11/23 11:52 Amlodipine 10 Mg Tablet PO 10 mg DAILY ROBERTO Administration Aspirin 81 mg 09/10/23 10:03 09/11/23 08:30 Aspirin 81 Mg Ec Tablet PO 81 mg DAILY ROBERTO Administration Atorvastatin Calcium 40 mg 09/10/23 21:00 09/10/23 21:41 Atorvastatin 40 Mg Tablet PO 40 mg BEDTIME ROBERTO Administration Enoxaparin Sodium 40 mg 09/10/23 10:03 09/11/23 11:05 Enoxaparin 40 Mg/0.4 Ml Syringe SUBCUT 40 mg Q24H ROBERTO Administration Losartan Potassium 50 mg 09/10/23 10:03 09/11/23 08:30 Losartan 50 Mg Tablet PO 50 mg DAILY ROBERTO Administration Nitroglycerin 0.5 inch 09/11/23 11:45 09/11/23 11:52 Nitroglycerin 1 Gm/Inch Oint Pkt TOPICAL 0.5 inch Q6H ROBERTO Administration PFSH Acute 2 PFSH: Medical History Atherosclerosis of coronary artery of [place] heart without angina pectoris Abnormal cardiovascular stress test History of left heart catheterization Presence of stent in LAD coronary artery Atypical chest pain Dyslipidemia Unstable angina No significant past medical history Surgical History Hx of cataract surgery History of ankle surgery History of tonsillectomy H/O shoulder surgery Family History Father CAD (coronary artery disease) [facility] age 48, at age 61 Diabetes Mother CAD (coronary artery disease) Grandfather CAD (coronary artery disease) Grandmother CAD (coronary artery disease) Diabetes Stroke Denies family history of Clotting disorder Dementia Chronic kidney disease (CKD) Suicide Anesthesia complication Bleeding disorder Lung disease Cancer Social History Smoking and tobacco/nicotine status: former use of tobacco/nicotine Alcohol intake: never Substance/Drug Use: former Vitals/I&O/Wt Last Vital Signs Temp 98.3 F 09/11/23 11:51 Pulse 71 09/11/23 11:51 Resp 16 09/11/23 11:51 BP 146/83 09/11/23 11:51 Pulse Ox 95 09/11/23 11:51 O2 Del Method Room Air 09/11/23 11:51 09/10/23 09/11/23 09/11/23 22:59 06:59 14:59 Intake Total 980 / 980 480 / 1460 1180 / 1180 Balance 980 / 980 480 / 1460 1180 / 1180 Weight last 48 hrs Weight 221 lb 11.2 oz Weight 224 lb Weight 220 lb Physical Exam 2 Narrative: GENERAL: The patient is alert and oriented times three. Not in any acute distress. HEENT: No significant pallor, icterus or lymphadenopathy.Oral cavity: There are no mucous membrane lesions. NECK: Trachea appears to be central. No masses noted. No JVD or thyromegaly appreciated. RESPIRATORY: Chest is symmetrical. No intercostals muscle retraction or any accessory muscle activation. There is no chest wall tenderness. Breath sounds are heard bilaterally. No rales or rhonchi heard. No evidence of any consolidation. BREASTS: Deferred. HEART: The heart sounds are normal. No S3 or S4. No significant murmurs. No pericardial rub ABDOMEN: No vessel pulsations or distention. No tenderness. No organomegaly appreciated. Bowel sounds are normally heard. : Deferred. RECTAL: Deferred. LYMPHATIC: No lymphadenopathy noted in the neck. EXTREMITIES: No edema or cyanosis. No clubbing. MUSCULOSKELETAL: No acute joint deformities or swelling SKIN: There are no significant rashes or ecchymosis NEUROPSYCHIATRIC: The patient is alert and oriented x3. Appears to be in a good mood. No tremors or rigidity noted. Data 09/10/23 03:39 09/11/23 05:43 Other Labs: Laboratory Last Values WBC 7.97 10^3/uL (3.29-11.43) 09/10/23 03:39 RBC 4.87 10^6/uL (3.85-5.65) 09/10/23 03:39 Hgb 14.90 g/dL (11.27-16.99) 09/10/23 03:39 Hct 43.7 % (37-53) 09/10/23 03:39 MCV 89.7 fl (82-101) 09/10/23 03:39 MCH 30.6 pg (27-33) 09/10/23 03:39 MCHC 34.1 g/dL (30-55) 09/10/23 03:39 RDW 13.4 % (12.1-15.1) 09/10/23 03:39 Plt Count 212 10^3/cmm (157-399) 09/10/23 03:39 MPV 8.7 fL (7.4-10.4) 09/10/23 03:39 Neut % (Auto) 57.0 % 09/10/23 03:39 Lymph % (Auto) 32.1 % 09/10/23 03:39 [place] % (Auto) 7.3 % 09/10/23 03:39 Eos % (Auto) 2.0 % 09/10/23 03:39 Baso % (Auto) 0.8 % 09/10/23 03:39 Neut # (Auto) 4.55 10^3/uL (1.8-7.7) 09/10/23 03:39 Lymph # (Auto) 2.6 10^3/uL (0.8-4.8) 09/10/23 03:39 [place] # (Auto) 0.6 10^3/uL (0.2-0.9) 09/10/23 03:39 Eos # (Auto) 0.2 10^3/uL (0.0-0.8) 09/10/23 03:39 Baso # (Auto) 0.1 10^3/uL (0.0-0.1) 09/10/23 03:39 Nucleated RBC % (auto) 0 % 09/10/23 03:39 Nucleated RBCs # 0.0 /100WBC 09/10/23 03:39 D-Dimer 0.44 ug/mLFEU (0-0.59) 09/10/23 03:39 Sodium 137 mmol/L (136-145) 09/11/23 05:43 Potassium 3.7 mmol/L (3.5-5.1) 09/11/23 05:43 Chloride 103 mmol/L (98-107) 09/11/23 05:43 Carbon Dioxide 24 mmol/L (22-29) 09/11/23 05:43 Anion Gap 13.7 (5-19) 09/11/23 05:43 BUN 15 mg/dL (8-23) 09/11/23 05:43 Creatinine 0.7 mg/dL (0.7-1.2) 09/11/23 05:43 GFR Calculation 112.5 mL/min (90-130) 09/11/23 05:43 Glucose 105 mg/dL (65-115) 09/11/23 05:43 Calculated Osmolality 285 mOsm/kg (285-295) 09/11/23 05:43 Calcium 8.5 mg/dL (8.5-10.5) 09/11/23 05:43 Magnesium 2.1 mg/dL (1.7-2.3) 09/11/23 05:43 Troponin T 5th Gen ng/L 21 ng/L (0-15) H 09/10/23 20:15 Troponin T Baseline 22 ng/L (0-15) H 09/10/23 03:39 Troponin T 120 Minute 29.09 ng/L (0-15) H 09/10/23 05:14 Delta Troponin T 7.09 ABS# (0-10) 09/10/23 05:14 Troponin T Hi Sens 6Hr 26.05 ng/L (0-15) H 09/10/23 10:00 Troponin T Hi Sens 6Hr Delta 4.05 ng/L (0-12) 09/10/23 10:00 NT-Pro-B Natriuret Pep 97 pg/mL (0-125) 09/10/23 03:39 TSH 2.74 uIU/mL (0.27-4.20) 09/10/23 03:39 Urine Color Yellow (Yellow) 09/10/23 04:03 Urine Appearance Clear (CLEAR) 09/10/23 04:03 Urine pH 5 (5-7) 09/10/23 04:03 Ur Specific [place] 1.015 (1.005-1.030) 09/10/23 04:03 Urine Protein Neg (Negative) 09/10/23 04:03 Urine Glucose (UA) Norm (Normal) 09/10/23 04:03 Urine Ketones Negative (Negative) 09/10/23 04:03 Urine Blood Neg (Negative) 09/10/23 04:03 Urine Nitrate Negative (Negative) 09/10/23 04:03 Urine Bilirubin Neg (Negative) 09/10/23 04:03 Urine Urobilinogen Neg mg/dL (Negative) 09/10/23 04:03 Ur Leukocyte Esterase Negative (Negative) 09/10/23 04:03 Other data: The EKG from 09/11/2023 \ Normal sinus rhythm with Myocardial perfusion imaging today 1. Myocardial perfusion imaging revealing moderate area of moderate to severely decreased tracer uptake involving the inferior, inferolateral and apical regions with almost complete reversibility suggesting ischemia in the distribution of the right coronary artery/circumflex artery. 2. Normal LV ejection fraction 50%. 3. Segmental wall motion analysis revealing mild hypokinesia of the LV apex. 4. Mildly dilated LV cavity with end-systolic volume of 71 ml Compared to the study from 02/06/2020, the area of ischemia appears to be new Echocardiogram from 09/10/2023 Normal left ventricular systolic function. LVEF estimated normal at 65%. Normal chamber sizes. No significant valvular abnormality noted. Normal right heart and pulmonary pressures. Cardiac catheterization on 04/21/2020 * LM has minor luminal irregularities. * CX has mid vessel mild 20% stenosis. It gives rise to 2 OM branches that are free of significant disease.. * RCA has mild luminal irregularities.. * LAD has proximal vessel moderate 60 to 70% stenosis. This is right before the prior stent.Proximal Left Anterior Descending Coronary Artery to Mid Left Anterior Descending Coronary Artery: Moderate 70% stenosis, LA: 3 flow. It gives rise to moderate-sized second diagonal artery. It has ostial to mid diagonal artery 95% stenosis. * Second * diagonal Coronary Artery: Severe 95% stenosis, LA:2 flow. * Coronary angiography shows right dominance. Cardiac catheterization on 02/06/2020 * Coronary angiography shows right dominance. * The left main is a medium caliber vessel with no significant stenotic lesions. * The left artery descending artery is a medium caliber vessel which appears to wrap around the LV apex minimally. Right after the second diagonal branch, there was a long eccentric irregular narrowing of around 70%. The second diagonal branch was found to have a high-grade lesion of 70 to 90% proximally. Rest of the vessel was found to have mild diffuse intimal irregularities. * The left circumflex artery is a medium caliber vessel which was found to have around 20% tubular narrowing proximally. The artery gives off a large obtuse marginal branch which bifurcates at the mid segment. Just before the bifurcation there is a 30% tubular narrowing. One of the bifurcation branches was found to have around 40% tubular narrowing proximally. The circumflex proper was found to have mild diffuse intimal irregularities. No other significant stenotic lesions. * The intermediate artery is a small caliber high obtuse marginal branch with no significant stenotic lesions. * The right coronary artery is a medium caliber vessel which was found to have mild diffuse intimal irregularities. Just before its bifurcation, there is a 30% diffuse irregular narrowing. No other significant stenotic lesions. A&P Assessment and plan (1) Unstable angina pectoris due to coronary arteriosclerosis: The patient's symptoms may suggest unstable angina. Currently he is seems to be stable hemodynamically. He has significant ischemia based on the perfusion scan. (2) Hypertension: May continue on the current medications. The blood pressure seems to be under control at this time. Qualifiers: Hypertension type: essential hypertension Qualified Code(s): I10 - Essential (primary) hypertension (3) Dyslipidemia: Continue on the current medications. (4) Abnormal myocardial perfusion study: The Perfusion scan findings are suggestive of ischemia in the distribution of the right coronary artery and circumflex artery. In view of his unstable symptoms, he requires a cardiac catheterization to better evaluate the coronary arteries and decide on further management. This was discussed with the patient in detail with the risk and benefits. The risk of bleeding, hematoma, vascular injury, myocardial infarction, myocardial perforation, malignant cardiac arrhythmias ,CVA, renal failure and other concomitant complications were explained in detail. Patient understood this well and consented to proceed. We may go ahead and do schedule to proceed as early as possible in the hospital. Plan Based on the results of the above tests and the patient's clinical progress, further recommendations will be made. Thank you for the opportunity to evaluate this patient and make these recommendations Consult Attestations 2 Medical Necessity Statement: Patient requires continued hospital stay for close monitoring and further management Coding Level of Care Code 82145 Diagnoses Unstable angina pectoris due to coronary arteriosclerosis I25.110 Essential hypertension I10 Hypertension type: essential hypertension Dyslipidemia E78.5 Abnormal myocardial perfusion study R94.39
--- NOTE | 2023-09-11 14:50 | XACV_ITS ---
Exam Room: [facility] Ht: 178 cm Wt: 100 kg BSA: 2.25 m2 Gender: Male : 1955 Any Known Allergies: No known allergies Exam Priority: Routine Procedure(s): Procedure Description: Diagnostic procedure Procedure Description: PCI procedure Procedure Description: Left Heart Catheterization Procedure Description: Drug Eluting Coronary Stent Procedure Description: PTCA Procedure Description: Coronary Angiography Kushal TALBOT; Diagnostic Cath Status: Urgent Diagnostic Findings * The left main is a medium caliber vessel with no significant stenotic lesions. * The left and descending artery is a medium caliber vessel which was found to have a proximal tapering narrowing of around 40%. The first diagonal branch was found to have an ostial around 40 to 50% stenosis. The second diagonal branch was found to have a patent proximal stented segment. Mild disease was noted in the PDA stent regions. The distal LAD was found to be tapering off to with the LV apex. No significant stenotic lesions were noted.. * The left circumflex artery is a medium caliber vessel which was found to have mild diffuse disease proximally. It gives off a large obtuse marginal branch which appears to trifurcate distally. Before the trifurcation, there was a long high-grade stenotic lesion of 80 to 90%. The circumflex proper in the AV groove was found to be a relatively small caliber vessel with no significant stenotic lesions. * The right coronary artery is a medium caliber dominant vessel which was found to have 30 to 40% diffuse irregular narrowing in the midsegment. Then the artery appears to bifurcate, giving of the PLV and the PDA branches. These branches were found to have mild diffuse disease with no significant stenotic lesions. PCI Status: Urgent PCI LVEF Assessed: Yes PCI Indication: NSTE - ACS Interventional Findings * The first obtuse marginal branch underwent primary angioplasty. The wires was in the more cephalad branch. There was some plaque shifting into the more inferior branch. After the stent was placed I pulled the wire back and placed it in the more inferior branch and then performed plain old balloon angioplasty of the ostium of that branch with an adequate angiographic result. The stent is a 3 x 12 mm stent. The balloon is a 2.5 x 8 mm balloon. Decision for PCI with Surgical Consult: No PCI for Multi-vessel Disease: No Conclusions 1. This is a 68-year-old white male with history of coronary artery disease and previous PCI, presenting with new onset of chest pain, suggestive of unstable angina. He had an abnormal Myocardial perfusion imaging revealing a moderate area of ischemia in the inferior and inferolateral wall regions suggesting ischemia in the distribution of the right coronary artery/circumflex artery. In view of his clinical presentation and the abnormal objective findings, in order to further evaluate the coronary status, a cardiac catheterization was recommended. Patient underwent left heart catheterization with left and right coronary angiogram today. The findings are as follows.. 2. No significant disease in the left main. Patent stented segment of the mid LAD and the proximal segments of the second diagonal branch. 40% tapering narrowing in the proximal LAD towards the origin of the first diagonal branch. 50% stenosis in the proximal segment of the first diagonal branch involving the ostium. High-grade elongated lesion in the first OM branch of the circumflex artery. 30 to 40% diffuse irregular stenosis in the mid right coronary artery. Mild diffuse disease in the other vessels. LVEDP of 18 mmHg.. 3. I reviewed and discussed the angiogram findings with the Dr. Hernandez. It was thought to be appropriate to go ahead with PCI of the OM lesion. Dr. Hernandez to cover further management this patient at this point. Diagnostic RX Recommendation: PCI w/o planned CABG LV EDP: 18 mmHg Left Ventriculography Findings: * The LV gram was not performed because of the concern of the dye overload. LVEDP was 18 mmHg. Pressures Phase:Rest AO : 111 / 71 ( 89 ) @ 5:54:00 PM 106 / 82 ( 94 ) @ 6:02:00 PM 135 / 79 ( 105 ) @ 6:06:00 PM 134 / 77 ( 106 ) @ 6:06:00 PM 139 / 84 ( 107 ) @ 6:15:00 PM 135 / 90 ( 111 ) @ 6:28:00 PM 139 / 86 ( 110 ) @ 6:38:00 PM LV : 144 / -7 / 18 @ 6:06:00 PM 145 / -7 / 18 @ 6:06:00 PM Valves Phase:DefaultPhase AV : 10.0 @ 5:49:20 PM AV Mean Gradient: 19.0 @ 5:49:20 PM Clinical Evaluation EBL: 5mL-10mL Procedural Details Procedure Consent Obtained. Admit Source: In Patient. Pre-Procedure Time Out. Identified patient by full name and date of as verbalized by the patient/guarantor. Does the consent match the physician's order: Yes. Accurate & Complete Informed Consent: Yes. Inpatient/Outpatient History & Physical on Chart: Yes. If H&P is completed, is and addenduem needed: No; If yes, is the addendum complete: N/A. Visualize and Verify Site with Patient/Guarantor: N/A. Relevant Radiology Images available: N/A. Pre-op teaching completed and patient verbalized understanding. The risks, benefits, and alternatives of sedation and/or procedure were discussed by physician. The patient agrees to continue. Procedure started. [facility] Clinical Fraility Score: 3: Managing Well. 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 Chest Pain Symptom Assessment: Typical Angina Symptoms. Cardiovascular Instability: Yes, if yes, Persistant Ischemic Symptoms. Correct patient, site and procedure confirmed by cath team. Current diagnosis: NSTEMI. PERRLA. Strong, equal hand manufacturing executive bilaterally. Lungs clear x 5 lobes. IV Site on Arrival: 20 gauge in the right anticubital. IV Fluids: 0.9% NaCl at KVO. 0 mL infused prior to laborer adjustable steel joist. Pre Procedural Pulses: right radial was 3+. Pre Procedural Pulses: bilateral dorsalis pedis was 2+. Oxygen started at 2liters/min via nasal canula. right groin was prepped with chloroprep then draped in the usual sterile fashion. right radial was prepped with chloroprep then draped in the usual sterile fashion. Baseline sample Acquired. HR: 74 BPM. Physician notified. Physician arrived. Physician scrubbed in. Immediate Pre-Procedure Time Out. Correct Patient: Yes; Correct Procedure: Yes; Correct Site: Yes; Correct Patient Position: Yes; Correct Supplies: Yes; Dried Flammable Prep: Yes; Blood Products Available: N/A;. Lidocaine 1% infiltrated to the right radial. Arterial access obtained. A 5 faroese Artur catheter in over wire. Multiple views taken of left coronary artery. Catheter redirected to the RCA. Catheter removed over the exchange wire. A 5 faroese JR4 catheter in over wire. Multiple views taken of right coronary artery. Catheter removed over the exchange wire. A 5 faroese Angled Pig catheter in over wire. EDP Sample taken: LV 144/-8,18; HR: 76 BPM; SpO2: 96%. Pullback taken: LV 145/-8,18; AO 135/79(105); Mean: 19mmHg, Peak to Peak: 10mmHg, SEP: 8sec/min; HR: 75 BPM; SpO2: 96%. Dr. Hernandez present to review cine films. Catheter removed over the exchange wire. Dr. Hernandez scrubbed in to perform intervention. Dr Fatima scrubbed out. Patient's family updated. 6 faroese XB 3.5 guide catheter was inserted over the wire. Kaplan guidewire was advanced through the guide catheter to lesion in the OM. Stent inserted to lesion in the 1st OM. Inflation Number : 1 A KASHIF Barkley KATARINA 3.0X12 ABRAHAN -Lot Number# [id number] Exp 08/31/2025 was prepped and advanced across the 1st Ob Galina. The stent was deployed at 12 DARIUS for 0:27 seconds. Results checked. Kaplan wire redirected down the 2nd OM. Stent balloon out over wire. Balloon inserted to lesion in the 2nd OM. Inflation number : 1 A AB TREK 2.50X8 RX BALLOON was prepped and advanced across the 2nd Ob Galina , then inflated to 12 DARIUS for 0:30 seconds. Results checked. Balloon out. Results checked. Guide catheter and wire out. Physician scrubbed out. A TR Band was successful obtaining hemostatsis at the Right Radial artery insertion site. Post Procedure: Pulses reassessed and unchanged. PERRLA. Strong, equal hand manufacturing executive bilaterally. No VTE prophylaxis required. Medication's Wasted: Other = Versed 1 mg. Medication's Wasted: Other = Fentanyl 50 mcg. Medication's Wasted: Nitro = 49.8 mg. Medication's Wasted: Lidocaine 1% = 18 mL. Medication's Wasted: Heparin = 1000 u. Total IV fluids: 76 mL. PCI Indication: NSTE. Post-op diagnosis: Obstructive CAD 1st OM s/p successful stenting x1. Complications: none. Estimated blood loss: 5mL-10mL. Responsiveness - Normal response to verbal stimuli; alert and oriented, PERRLA. Airway - Unaffected, no intervention required; spontaneous ventilation. Circulation: W/N/L, pulses unchanged. Nausea/Vomiting: No. Procedure completed. Patient transferred by wheelchair to ICU. Vital chart was stopped. Access Site Site: Right Radial artery Sheath Size: 6 Fr Hemostasis Method: TR Band Hemostasis Success: Successful Procedure Medications Start: 4:44 PM Stop: 4:44 PM Medication: Versed Amount: 1 mg Route: I.V. Start: 4:44 PM Stop: 4:44 PM Medication: Fentanyl Amount: 50 mcg Route: I.V. Start: 4:47 PM Stop: 4:47 PM Medication: Versed Amount: 1 mg Route: I.V. Start: 4:51 PM Stop: 4:51 PM Medication: Verapamil Amount: 5 mg Route: I.A. Start: 4:51 PM Stop: 4:51 PM Medication: Nitrogylcerin Amount: 200 mcg Route: I.A. Start: 4:52 PM Stop: 4:52 PM Medication: Fentanyl Amount: 25 mcg Route: I.V. Start: 4:54 PM Stop: 4:54 PM Medication: Heparin Amount: 5000 units Route: I.V. Start: 4:56 PM Stop: 4:56 PM Medication: Versed Amount: 1 mg Route: I.V. Start: 5:08 PM Stop: 5:08 PM Medication: Fentanyl Amount: 25 mcg Route: I.V. Start: 5:13 PM Stop: 5:13 PM Medication: Versed Amount: 1 mg Route: I.V. Start: 5:22 PM Stop: 5:22 PM Medication: Versed Amount: 1 mg Route: I.V. Start: 5:27 PM Stop: 5:27 PM Medication: Fentanyl Amount: 25 mcg Route: I.V. Start: 5:39 PM Stop: 5:39 PM Medication: Fentanyl Amount: 25 mcg Route: I.V. Start: 5:43 PM Stop: 5:43 PM Medication: Plavix Amount: 600 mg Route: P.O. I, the attending physician, have reviewed and verified all procedure medications. Yes, all medications given per verbal order History/Risk Factors Hypertension: No Dyslipidemia: Yes Peripheral Arterial Disease (PAD): No Myocardial Infarction ([place]): No Obesity: Yes Renal Disease: No Tobacco Use: Former Prior Interventions PCI: Yes CABG: No Valve Surgery: No Date of PCI: 04/21/2020 Report Signatures Diagnostic Workflow Finalized by Dr Clovis Fatima MD [facility] on 09/12/2023 07:03 AM Interventional Workflow Finalized by Dr. Bird Hernandez MD on 09/11/2023 06:01 PM
--- NOTE | 2023-09-11 16:30 | PC.NURSE ---
Patient prepped for label designer with HCG wipes, fresh gown donned, and clean sheet applied to bed. Allergies verified and pre-op checklist completed with the exception of consent. Thony Falk RN and Dalton Lira RN transport for patient and informed them of consent not signed. Patient verified Dr. Fatima explained the procedure with him, including the risks, benefits, and alternative treatments. Thony Falk RN witnessed signature of the consent. Patient and his spouse took his belongings and went to label designer waiting room as patient will be transferred to ICU 4 after cardiac cath. Patient and spouse deny any further questions or concerns at this time.
--- NOTE | 2023-09-11 16:35 | W.PM.OPSUD ---
Surgery/Procedure H&P Update DATE OF PROCEDURE: September 11, 2023 DATE H&P PERFORMED: 09/11/23 H&P UPDATE INFORMATION: I have reviewed H&P completed within last 30 days, I have examined patient prior to procedure and No changes to prior documentation PRIMARY INDICATION FOR PROCEDURE: Prolonged episode of chest pains, abnormal Myocardial perfusion imaging PLANNED PROCEDURE: Left heart catheterization with the left and right coronary angiogram, LV angiogram and possible PCI
--- NOTE | 2023-09-11 17:15 | PC.NURSE ---
I received a call from Mili Werner RN for report on patient. Provided report including patient's pertinent history, IV access, neuro status, procedure and test information, and patient's spouse information. She denies any questions or concerns at this time.
[2023-09-11] MEDS: sodium chloride 0.9% 1,000 ML 100 ML IV (18:23)
--- NOTE | 2023-09-11 19:06 | PC.NURSE ---
Patient arrived to ICU 4 at 1800 via wheelchair on room air. Right wrist TR band in place with 17mm air, no bleeding or hemotoma, pulses pres. Patient resting in bed with no requests or complaints at this time.
--- NOTE | 2023-09-11 19:37 | NMCV_ITS ---
NM savanna perf SPECT r/s* [id number] Clayton Myron Age: 68 Gender: M : 1955 Exam Date: 09/11/2023 06:53 Ordering Phys: Iveth Nielsen MD Technologist: ESTRELLA Gonzales Exam Location: [facility] Indications: CP, fidel has 3 stents STRESS TEST Please see separate stress test report in [facility] for full findings IMAGE PROTOCOL Rest/Stress 1 Exercise Day Radiopharmaceutical Dose (mCi) Administration Site Administered by Rest: Tc-99m 10.6 IV ESTRELLA Gonzales Sestamibi Stress:Tc-99m 32.6 IV ESTRELLA Gonzales Sestamibi Rest: 11-Sep-2023 60 Discovery 630 Stress: 11-Sep-2023 30 Discovery 630 Radiopharmaceutical was injected at 85 % maximum heart rate. Images obtained in supine and prone position. SPECT RESULTS Technical Quality: Excellent Raw Data Analysis: Normal Image Corrections: No attenuation or motion correction applied Summed Stress Score: 15 Summed Rest Score: 0 Summed Difference Score: 15 PERFUSION FINDINGS Moderate area of moderate to severely decreased tracer uptake involving the inferior, inferolateral anterior inferior, inferolateral and apical lateral segments. Almost complete reversibility was noted in this region. A small area of slightly decreased tracer uptake in the mid anterior wall region with no significant reversibility. FUNCTIONAL RESULTS (calculated via Gated SPECT) Stress Image LV EF (%): 50 Stress EDV (mL):142 TID: 0.96 Stress ESV (mL):71 FUNCTIONAL FINDINGS: Segmental wall motion analysis revealed no mild hypokinesia of the LV apex IMPRESSIONS 1. Myocardial perfusion imaging revealing moderate area of moderate to severely decreased tracer uptake involving the inferior, inferolateral and apical regions with almost complete reversibility suggesting ischemia in the distribution of the right coronary artery/circumflex artery. 2. Normal LV ejection fraction 50%. 3. Segmental wall motion analysis revealing mild hypokinesia of the LV apex. 4. Mildly dilated LV cavity with end-systolic volume of 71 ml Compared to the study from 02/06/2020, the area of ischemia appears to be new Dr Clovis Fatima MD [facility] (Electronically Signed) Final Date: 11 September 2023 10:15 S
[2023-09-11 21:00] LABS: Glucose Point of Care 138 mg/dL (70-110)
[2023-09-11] MEDS: atorvastatin 40 mg Tablet PO (21:14)
--- NOTE | 2023-09-11 21:24 | PC.NURSE ---
TR band off at 2100. No hematoma in site. Pt tolerated well.
--- NOTE | 2023-09-11 21:29 | PC.NURSE ---
Called report to MANISH Ramos, in [facility].
[2023-09-12] MEDS: sodium chloride 0.9% 1,000 ML 100 ML IV (02:41)
[2023-09-12 04:28] LABS: Basophils % 0.5 %; Eosinophils # 0.2 10^3/uL (0.0-0.8); Eosinophils % 2.1 %; Hematocrit 44.8 % (37-53); Lymphocytes # 2.2 10^3/uL (0.8-4.8); Mean Corpuscular HGB Conc 34.4 g/dL (30-55); Mean Corpuscular Hemoglobin 30.6 pg (27-33); Mean Corpuscular Volume 89.1 fl (82-101); Mean Platelet Volume 8.5 fL (7.4-10.4); Monocytes # 0.8 10^3/uL (0.2-0.9); Monocytes % 9.1 %; Neutrophils # 5.47 10^3/uL (1.8-7.7); Neutrophils % 62.7 %; Nucleated Red Blood Cells % 0 %; Platelet Count 210 10^3/cmm (157-399); Red Blood Count 5.03 10^6/uL (3.85-5.65); Red Cell Distribution Width 13.3 % (12.1-15.1); White Blood Count 8.71 10^3/uL (3.29-11.43)
[2023-09-12 04:56] LABS: Blood Urea Nitrogen 15 mg/dL (8-23); Calcium 8.6 mg/dL (8.5-10.5); Carbon Dioxide 24 mmol/L (22-29); Chloride 105 mmol/L (98-107); Creatinine Clr Calc Pharmacy 106.4893; Glomerular Filtration Rate 112.5 mL/min (90-130); Glucose 104 mg/dL (65-115); Osmolality Calculated 293 mOsm/kg (285-295); Sodium 141 mmol/L (136-145)
[2023-09-12 05:06] LABS: Anion Gap 15.9 (5-19); Potassium 3.9 mmol/L (3.5-5.1)
[2023-09-12 05:18] VITALS: PULSE 67
[2023-09-12 07:36] VITALS: PULSE 67; RESP 18; O2SAT 98
[2023-09-12 08:00] VITALS: BP 160/92; PULSE 74; RESP 19; O2SAT 95
--- NOTE | 2023-09-12 08:04 | P.DS_ITS ---
Discharge Providers Date of Admission: 09/11/23 11:42 Date of Discharge: September 12, 2023 Attending Provider at Admission: Iveth Nielsen MD Attending Provider at Discharge: Jaiden Ojeda MD Primary Care Provider: Brittany Devi MD Diagnoses at Discharge Discharge Diagnosis (1) Unstable angina pectoris due to coronary arteriosclerosis: Status: Acute (2) Hypertension: Status: Acute Qualifiers: Hypertension type: essential hypertension Qualified Code(s): I10 - Essential (primary) hypertension (3) Dyslipidemia: Status: Acute (4) Abnormal myocardial perfusion study: Status: Acute Reason for Visit Reason for Visit: CP Hospital Course Hospital Course 68-year male who presented to hospital with chief complaint of chest pain which she was describing as pressure, 08/06, it was getting worse on exertion, it would improve with nitroglycerin,Associated with shortness of breath and nausea but no vomiting, troponins were not elevated with significant delta, EKG showed sinus rhythm, no ischemic or infarctive changes, stress test was pursued which showed positive findings, patient went for cardiac cath same day, status post PCI circumflex obtuse marginal artery. 09/10, patient was given aspirin, Plavix, atorvastatin and for blood pressure he was given losartan, chlorthalidone and amlodipine. I have sent medications to our pharmacy to prevent [facility]. 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 echo complete* [id number] Routine Ultrasound 09/10/23 10:03 Completed Radiology Impressions Chest X-Ray 09/10/23 02:52 IMPRESSION: 1. Cardiomegaly. Laboratory Results WBC 8.71 10^3/uL (3.29-11.43) 09/12/23 04:00 RBC 5.03 10^6/uL (3.85-5.65) 09/12/23 04:00 Hgb 15.40 g/dL (11.27-16.99) 09/12/23 04:00 Hct 44.8 % (37-53) 09/12/23 04:00 MCV 89.1 fl (82-101) 09/12/23 04:00 MCH 30.6 pg (27-33) 09/12/23 04:00 MCHC 34.4 g/dL (30-55) 09/12/23 04:00 RDW 13.3 % (12.1-15.1) 09/12/23 04:00 Plt Count 210 10^3/cmm (157-399) 09/12/23 04:00 MPV 8.5 fL (7.4-10.4) 09/12/23 04:00 Neut % (Auto) 62.7 % 09/12/23 04:00 Lymph % (Auto) 25.0 % 09/12/23 04:00 Billings % (Auto) 9.1 % 09/12/23 04:00 Eos % (Auto) 2.1 % 09/12/23 04:00 Baso % (Auto) 0.5 % 09/12/23 04:00 Neut # (Auto) 5.47 10^3/uL (1.8-7.7) 09/12/23 04:00 Lymph # (Auto) 2.2 10^3/uL (0.8-4.8) 09/12/23 04:00 Billings # (Auto) 0.8 10^3/uL (0.2-0.9) 09/12/23 04:00 Eos # (Auto) 0.2 10^3/uL (0.0-0.8) 09/12/23 04:00 Baso # (Auto) 0.0 10^3/uL (0.0-0.1) 09/12/23 04:00 Nucleated RBC % (auto) 0 % 09/12/23 04:00 Nucleated RBCs # 0.0 /100WBC 09/12/23 04:00 D-Dimer 0.44 ug/mLFEU (0-0.59) 09/10/23 03:39 Sodium 141 mmol/L (136-145) 09/12/23 04:00 Potassium 3.9 mmol/L (3.5-5.1) 09/12/23 04:00 Chloride 105 mmol/L (98-107) 09/12/23 04:00 Carbon Dioxide 24 mmol/L (22-29) 09/12/23 04:00 Anion Gap 15.9 (5-19) 09/12/23 04:00 BUN 15 mg/dL (8-23) 09/12/23 04:00 Creatinine 0.7 mg/dL (0.7-1.2) 09/12/23 04:00 GFR Calculation 112.5 mL/min (90-130) 09/12/23 04:00 Glucose 104 mg/dL (65-115) 09/12/23 04:00 POC Glucose 138 mg/dL (70-110) H 09/11/23 20:54 Calculated Osmolality 293 mOsm/kg (285-295) 09/12/23 04:00 Calcium 8.6 mg/dL (8.5-10.5) 09/12/23 04:00 Magnesium 2.1 mg/dL (1.7-2.3) 09/11/23 05:43 Troponin T 5th Gen ng/L 21 ng/L (0-15) H 09/10/23 20:15 Troponin T Baseline 22 ng/L (0-15) H 09/10/23 03:39 Troponin T 120 Minute 29.09 ng/L (0-15) H 09/10/23 05:14 Delta Troponin T 7.09 ABS# (0-10) 09/10/23 05:14 Troponin T Hi Sens 6Hr 26.05 ng/L (0-15) H 09/10/23 10:00 Troponin T Hi Sens 6Hr Delta 4.05 ng/L (0-12) 09/10/23 10:00 NT-Pro-B Natriuret Pep 97 pg/mL (0-125) 09/10/23 03:39 TSH 2.74 uIU/mL (0.27-4.20) 09/10/23 03:39 Urine Color Yellow (Yellow) 09/10/23 04:03 Urine Appearance Clear (CLEAR) 09/10/23 04:03 Urine pH 5 (5-7) 09/10/23 04:03 Ur Specific Kellogg 1.015 (1.005-1.030) 09/10/23 04:03 Urine Protein Neg (Negative) 09/10/23 04:03 Urine Glucose (UA) Norm (Normal) 09/10/23 04:03 Urine Ketones Negative (Negative) 09/10/23 04:03 Urine Blood Neg (Negative) 09/10/23 04:03 Urine Nitrate Negative (Negative) 09/10/23 04:03 Urine Bilirubin Neg (Negative) 09/10/23 04:03 Urine Urobilinogen Neg mg/dL (Negative) 09/10/23 04:03 Ur Leukocyte Esterase Negative (Negative) 09/10/23 04:03 Vitals Last Vital Signs Temp 98.2 F 09/11/23 23:16 Pulse 67 09/12/23 07:36 Resp 18 09/12/23 07:36 BP 162/91 09/11/23 23:16 Pulse Ox 98 09/12/23 07:36 O2 Del Method Room Air 09/12/23 07:36 Discharge Plan Discharge Patient Disposition: Home Condition: Stable Prescriptions: New losartan 50 mg Tablet 50 mg PO DAILY Qty: 90 3RF atorvastatin 40 mg Tablet 40 mg PO BEDTIME Qty: 90 3RF clopidogrel 75 mg Tablet 75 mg PO DAILY Qty: 90 3RF chlorthalidone 25 mg Tablet 12.5 mg PO DAILY Qty: 90 3RF aspirin 81 mg Tablet,Delayed Release (Dr/Ec) 81 mg PO DAILY Qty: 90 3RF Changed amlodipine 5 mg Tablet 10 mg PO DAILY Qty: 60 0RF Discharge Orders: Discharge Order (Routine); Ordered 09/12/23 Ordered By: Jaiden Ojeda Referrals: Brittany Devi MD [Primary Care Provider] - 1-3 days (Per jess with the [place] hotline the clinic will contact you to schedule an follow-up appointment within 1 to 3 days. [phone]) Viki Dugan FNP [Nurse Practitioner] - 10/03/23 2:00 pm Discharge Diet: Cardiac Discharge Activity: Increase activity as tolerated Patient Instructions: Chlorthalidone (By mouth), Losartan (By mouth) (Cozaar), Atorvastatin (By mouth), Clopidogrel (By mouth) (Plavix), Coronary Artery Disease (DC), Chest Pain (DC), Chest Pain Stoplight, Opioid Safety, Post Angiogram Home Care Instructions Discharge Attestations Time Spent in Discharge Care*: greater than 30 min Status at Discharge: Cognitive status at discharge: cognitively intact , Behavioral status at discharge: cooperative , Quality Metrics Clinical Quality Measures [ No reported AMI, CVA or VTE this stay] Coding Level of Care Code Acute Code for Chg Fwd Diagnoses Unstable angina pectoris due to coronary arteriosclerosis I25.110 Essential hypertension I10 Hypertension type: essential hypertension Dyslipidemia E78.5 Abnormal myocardial perfusion study R94.39
[2023-09-12 08:12] VITALS: BP 160/92
[2023-09-12] MEDS: losartan 50 mg Tablet PO (08:12)
[2023-09-12] MEDS: clopidogrel 75 mg Tablet PO (08:13)
[2023-09-12] MEDS: chlorthalidone 25 mg Tablet 12.5 MG PO (08:13)
[2023-09-12] MEDS: aspirin 81 mg EC Tablet PO (08:13)
[2023-09-12] MEDS: amlodipine 10 mg Tablet PO (08:13)
--- NOTE | 2023-09-12 09:03 | PC.CHAP ---
Pastoral Care Encounter/Spiritual Assessment Type of Contact [] Declined elastic cutter visit [] Patient/Family/Request visit [] Outpatient visit [] Follow-up visit [] Physician referral [] Code/Alert [x] Routine visit [] Staff referral [] Actively dying [] Patient sleeping [] Family support [] [] Out of room [] Palliative care [] [] Receiving care in room [] Pre-surgical visit [] Trauma [] Long length of stay [] ICU visit [] Other: Relational/Emotional Strength [x] Patient feels connected with others/family/visitors/staff [] Distress [] Loneliness/isolation [] Abandonment Spirituality of Patient [x] Person of Farhana [] Attends Hoahaoism of their Farhana [x] Believes in Prayer [] Reads Bible or Episcopal materials [] There are Spiritual issues to be addressed Fishing Tackle Repairer Interventions [x] Prayer [x] Active listening [] Non-anxious presence [x] Spiritual/emotional support [] Crisis/trauma care [] Spiritual counseling [] Bereavement support [] Provided bereavement packet [] Provided Bible/devotional materials [] Provided toy/stuffed animal, coloring book to patient or family member [] Provided Communion [] Anointing/Roach [] Salvation [x] Completed spiritual assessment [] Other: Impact on Illness or Injury [] Angry [] Fearful [] Anxious [] Often cries [] Exhaustion [] Unable to work [] Unable to attend scientology [] Unable to walk/stand [] Unable to read [] Unable to drive [] Unable to eat/drink [] Unable to sleep [] Unable to be with family [] Patient intubated [] Other: Summary Time spent with patient 5 min
--- NOTE | 2023-09-12 09:46 | PM.PN ---
Subjective Subjective: Patient had a cardiac arrest in yesterday. He was found to have a high-grade lesion in the circumflex obtuse marginal artery. He underwent a PCI of the lesion by Dr. Hernandez. Currently has no recurrence of chest pain. Vital signs remained stable. The blood pressure is stage II. Medications: Medication Review Details: Current Medications Acetaminophen (Acetaminophen 500 Mg Tablet) 500 mg PO Q4H PRN PRN Reason: fever Albuterol/Ipratropium (Ipratropium-Albuterol 3 Ml Neb) 3 ml INHALATION Q6H PRN PRN Reason: SHORTNESS OF BREATH Amlodipine Besylate (Amlodipine 10 Mg Tablet) 10 mg PO DAILY [facility] Last Admin: 09/12/23 08:13 Dose: 10 mg Aspirin (Aspirin 81 Mg Ec Tablet) 81 mg PO DAILY [facility] Last Admin: 09/12/23 08:13 Dose: 81 mg Atorvastatin Calcium (Atorvastatin 40 Mg Tablet) 40 mg PO BEDTIME [facility] Last Admin: 09/11/23 21:14 Dose: 40 mg Chlorthalidone (Chlorthalidone 25 Mg Tablet) 12.5 mg PO DAILY [facility] Last Admin: 09/12/23 08:13 Dose: 12.5 mg Clopidogrel Bisulfate (Clopidogrel 75 Mg Tablet) 75 mg PO DAILY [facility] Last Admin: 09/12/23 08:13 Dose: 75 mg Enoxaparin Sodium (Enoxaparin 40 Mg/0.4 Ml Syringe) 40 mg SUBCUT Q24H [facility] Last Admin: 09/11/23 11:05 Dose: 40 mg Esmolol HCl (Esmolol 100 Mg/10 Ml Sdv) 5 mg IV PRN PRN PRN Reason: See dose instructions Hydralazine HCl (Hydralazine 20 Mg/Ml Inj 1 Ml) 5 mg IVP Q4H PRN PRN Reason: bp>180/90mmhg Sodium Chloride (Sodium Chloride 0.9%) 1,000 mls @ 100 mls/hr IV .Q10H [facility] Last Admin: 09/12/23 02:41 Dose: 100 mls/hr Losartan Potassium (Losartan 50 Mg Tablet) 50 mg PO DAILY [facility] Last Admin: 09/12/23 08:12 Dose: 50 mg Metoprolol Tartrate (Metoprolol Tartrate 1 Mg/1 Ml Sdv 5 Ml) 5 mg IV PRN PRN PRN Reason: See dose instructions Morphine Sulfate (Morphine 4 Mg/Ml Sdv 1 Ml) 2 mg IVP Q4H PRN PRN Reason: SEVERE PAIN Ondansetron HCl (Ondansetron 2 Mg/Ml Sdv 2 Ml) 4 mg IVP Q6H PRN PRN Reason: NAUSEA AND VOMITING Vitals/I&O/Wt Last Vital Signs Temp 98.2 F 09/11/23 23:16 Pulse 74 09/12/23 08:00 Resp 19 H 09/12/23 08:00 BP 160/92 09/12/23 08:12 Pulse Ox 95 09/12/23 08:00 O2 Del Method Room Air 09/12/23 08:00 09/11/23 09/12/23 09/12/23 22:59 06:59 14:59 Intake Total 440 / 1620 1120 / 2740 Output Total 875 / 875 300 / 300 Balance 440 / 1620 245 / 1865 -300 / -300 Weight last 48 hrs Weight 221 lb 11.2 oz Weight 221 lb 11.2 oz Weight 224 lb Physical Exam Narrative: GENERAL: The patient is alert and oriented times three. Not in any acute distress. HEENT: No significant pallor, icterus or lymphadenopathy.Oral cavity: There are no mucous membrane lesions. NECK: Trachea appears to be central. No masses noted. No JVD or thyromegaly appreciated. RESPIRATORY: Chest is symmetrical. No intercostals muscle retraction or any accessory muscle activation. There is no chest wall tenderness. Breath sounds are heard bilaterally. No rales or rhonchi heard. No evidence of any consolidation. BREASTS: Deferred. HEART: The heart sounds are normal. No S3 or S4. No significant murmurs. No pericardial rub ABDOMEN: No vessel pulsations or distention. No tenderness. No organomegaly appreciated. Bowel sounds are normally heard. : Deferred. RECTAL: Deferred. LYMPHATIC: No lymphadenopathy noted in the neck. EXTREMITIES: No edema or cyanosis. No clubbing. MUSCULOSKELETAL: No acute joint deformities or swelling SKIN: There are no significant rashes or ecchymosis NEUROPSYCHIATRIC: The patient is alert and oriented x3. Appears to be in a good mood. No tremors or rigidity noted. Data 09/12/23 04:00 09/12/23 04:00 A&P Assessment and plan (1) Unstable angina pectoris due to coronary arteriosclerosis: Patient is status postcardiac catheterization. High-grade lesion in the obtuse marginal artery which was intervened. Currently seems to be stable. (2) Hypertension: Need to optimize antihypertensive medications. He was given the morning medications just now. Need to make sure that the blood pressure is acceptable before discharge Qualifiers: Hypertension type: essential hypertension Qualified Code(s): I10 - Essential (primary) hypertension (3) Dyslipidemia: Continue on the current medications. (4) Abnormal myocardial perfusion study: Had the cardiac catheterization yesterday. High-grade lesion in the obtuse marginal artery. Mild diffuse disease in the other vessels. Patent stented segments of the LAD and diagonal artery. Plan If the patient continues remain stable, may be discharged home today. Follow-up appointment [facility] in 1-2 week with the nurse practitioner Appointment with me in the office in 1 month Continue the Plavix and aspirin Attestations Medical Necessity Statement*: Possible discharge home today Coding Level of Care Code 84108 Diagnoses Unstable angina pectoris due to coronary arteriosclerosis I25.110 Essential hypertension I10 Hypertension type: essential hypertension Dyslipidemia E78.5 Abnormal myocardial perfusion study R94.39
[2023-09-12 09:47] VITALS: BP 160/92
--- NOTE | 2023-09-12 10:46 | PC.NURSE ---
discharge instructions given and explained.pt verb understanding of instructions.prescription meds supplied by [facility] meds to beds program.discharged via w/c to exit at this time
== END 2023-09-12 10:48 | disposition home or self-care (01) | DRG 322 ==
LOC: ER 07:47 → MEDSURG 09:15 → ICU 09-11 16:43 → CSU 09-11 21:55
PROVIDERS: Internal Medicine Cardiovascular Disease; Admitting Provider Student in an Organized Health Care Education/Training Program; Emergency Provider Emergency Medicine; PCP Family Medicine; Visit Provider Internal Medicine
PROC: 027034Z Dilation of Coronary Artery, One Artery with Drug-eluting Intraluminal Device, Percutaneous Approach (ICD-10-PCS; principal; 2023-09-11 16:30)
DX: I25.110 Atherosclerotic heart disease of native coronary artery with unstable angina pectoris (principal); E78.5 Hyperlipidemia, unspecified; T39.016A Underdosing of aspirin, initial encounter; T45.526A Underdosing of antithrombotic drugs, initial encounter; R00.1 Bradycardia, unspecified; I95.9 Hypotension, unspecified; I44.0 Atrioventricular block, first degree; Z79.82 Long term (current) use of aspirin; Z79.02 Long term (current) use of antithrombotics/antiplatelets; Z87.891 Personal history of nicotine dependence; Z91.128 Patient's intentional underdosing of medication regimen for other reason
CPT/HCPCS: 36415; 36416; 71045; 78452; 80048; 81003; 82962; 83735; 83880; 84443; 84484; 85025; 85378; 93005; 93017; 93306; 93458; 96372; 96374; 96375; 96376; 99152; 99153; 99285; A9500; C1725; C1769; C1874; C1887; C1894; C9600; G0378; J1644; J1650; J2250; J2270; J2405; J3010; J3490; J7030; Q9967

== ENCOUNTER → 2023-10-03 13:54 | Outpatient (BNVA) | payer OTHER, SELFPAY | PROVIDERS: PCP Family Medicine; Visit Provider Nurse Practitioner Family | DX: I25.119 Atherosclerotic heart disease of native coronary artery with unspecified angina pectoris (principal); Z09 Encounter for follow-up examination after completed treatment for conditions other than malignant neoplasm; Z87.891 Personal history of nicotine dependence | CPT/HCPCS: 80048; 99214 ==

== ENCOUNTER → 2024-04-08 14:18 | Outpatient (BNVA) | payer OTHER, SELFPAY | PROVIDERS: PCP Family Medicine; Visit Provider Internal Medicine Cardiovascular Disease | DX: I25.10 Atherosclerotic heart disease of native coronary artery without angina pectoris (principal); E78.5 Hyperlipidemia, unspecified; I10 Essential (primary) hypertension; R00.1 Bradycardia, unspecified; Z87.891 Personal history of nicotine dependence | CPT/HCPCS: 99214 ==

== ENCOUNTER → 2024-10-31 11:45 | Outpatient (BNVA) | payer OTHER, SELFPAY | PROVIDERS: PCP Family Medicine; Visit Provider Internal Medicine Cardiovascular Disease | DX: I25.10 Atherosclerotic heart disease of native coronary artery without angina pectoris (principal); I10 Essential (primary) hypertension; E78.5 Hyperlipidemia, unspecified; R00.1 Bradycardia, unspecified; Z91.148 Patient's other noncompliance with medication regimen for other reason; Z95.5 Presence of coronary angioplasty implant and graft; Z87.891 Personal history of nicotine dependence | CPT/HCPCS: 99213 ==